=== PATIENT | female | born 1945 | race Caucasian/White ===

== ENCOUNTER 2023-10-23 09:15 | Outpatient (CLI) | payer MEDICARE, SELFPAY ==
--- NOTE | ~2023-10-23 | MMUS_ITS ---
MM post biopsy diagnostic LT, US_MAGSEEDLT_US EXAMINATION: MM post biopsy diagnostic LT, US_MAGSEEDLT_US INDICATION: Left breast cancer TECHNIQUE: The procedure for a ultrasound -guided Magseed localization was discussed with the patient . Risks discussed included bleeding and infection. The patient verbalized understanding and agreed to proceed. The time out was performed to verify the patient's name, date of , and site of procedure. The s kin overlying the left breast was prepared in usual fashion. Utilizing ultrasound guidance, the needl e was advanced into the left breast. Confirmation of Magseed position was achieved with ultrasound an d subsequent mediolateral and craniocaudal mammogram. The patient tolerated procedure without immedia te complication. BREAST PARENCHYMAL COMPOSITION: Dense: The breasts are heterogeneously dense, which may obscure small masses FINDINGS: Ultrasound and mammographic images demonstrate deployment of the Magseed device of the biop sy-proven left breast cancer. IMPRESSION: 1. Successful ultrasound-guided left breast Magseed localization. Magseed is located approximately 4 mm from the tissue marker from previous biopsy. Reviewed, dictated and finalized at location B. IMPRESSION: 1. Successful ultrasound-guided left breast Magseed localization. Magseed is lo cated approximately 4 mm from the tissue marker from previous biopsy.
== END 2023-10-23 09:16 | disposition home or self-care (01) ==
PROVIDERS: PCP Family Medicine; Visit Provider Surgery
DX: C50.312 Malignant neoplasm of lower-inner quadrant of left female breast (principal)
CPT/HCPCS: 19285; 77065; A4648

== ENCOUNTER 2023-10-30 08:47 | Outpatient (CLI) | payer MEDICARE, SELFPAY ==
--- NOTE | ~2023-10-30 | MM_ITS ---
EXAMINATION: MM_MAGSEEDLT_MG INDICATION: Left breast cancer TECHNIQUE: The procedure for a mammographically-guided Magseed localization was discussed with the alyssa perez. Risks discussed included bleeding and infection. The patient verbalized understanding and agre ed to proceed. The time out was performed to verify the patient's name, date of , and site of procedure. The s kin overlying the left breast was prepared in usual fashion. Utilizing mammographic guidance, the nee dle was advanced into the left breast. Confirmation of Magseed position was achieved with mammography . The patient tolerated procedure without immediate complication. BREAST PARENCHYMAL COMPOSITION: Dense: The breasts are heterogeneously dense, which may obscure small masses FINDINGS: Mammographic images demonstrate deployment of the Magseed device of the biopsy-proven left breast cancer. IMPRESSION: 1. Successful mammographic left breast Magseed localization. Post procedure mammogram for marker plac ement. Reviewed, dictated and finalized at location B. IMPRESSION: 1. Successful mammographic left breast Magseed localization. Post procedure alexandra mogram for marker placement.
== END 2023-10-30 08:48 | disposition home or self-care (01) ==
PROVIDERS: PCP Family Medicine; Visit Provider Surgery
DX: C50.912 Malignant neoplasm of unspecified site of left female breast (principal)
CPT/HCPCS: 19281; A4648

== ENCOUNTER 2023-11-18 00:35 | Day surgery (SDC) | payer MEDICARE, SELFPAY ==
[2023-11-12 10:45] VITALS: BMI 34.4
--- NOTE | 2023-11-12 10:47 | PC.NURSE ---
Report to the Outpatient Waiting Room, entrance under the green pavilion located off [facility], at time _0600_ on date _[id number]_. Planned Procedure Time: _0730_.? Time changes happen often and if your time is changed the preop area will call you the afternoon before. - You and your visitor will be asked to self-screen and do not enter if you have any COVID symptoms. Please call surgeon if you need to reschedule. - A mask is optional within the hospital at this time. Patients may have clear liquids (water, carbonated beverages, clear teas, apple juice) until 3 hours prior to surgery with a maximum of 20 ounces. - No food from midnight until time of surgery and no smoking Take only the following medications with a SIP of water on the morning of surgery: ___Amlodipine, Metoprolol, Symbicort and if needed Albuterol DO NOT STOP ANY OF YOUR OTHER PRESCRIPTION MEDICATIONS PRIOR TO SURGERY EXCEPT THE FOLLOWING Medications to discontinue per physician ____All vitamins and supplements Date to take last dose____Patient is stopping them today. Please no make-up, nail luxembourgish, hairspray, perfume, deodorant, or body powder the day of surgery.? No jewelry (including any body piercings) or valuables the day of surgery, leave them at home.? Please take a shower or bath the night before, or the morning of, surgery with an antibacterial soap.? Wear comfortable, loose fitting clothing.? - Jewelry must be removed prior to entering the operating room.? Rings and piercings that are not removed may be cut off. - The hospital will not accept responsibility for valuables.? - Please leave all valuables, including medications, at home the day of surgery. If you are going home after surgery, a licensed six horse hitch driver must drive you home.? - NO public transportation without another adult if you receive anesthesia. - We recommend that an adult stay with you for 24 hours following discharge. - We also recommend that you do not drive, make important decision, drink alcoholic beverages, or take any drugs that were not prescribed by your health care provider for at least 24 hours after your discharge time. Follow any additional instructions given to you from your surgeon. Telephone instructions given to __Blanca__and asked if any additional questions and then verbalized understanding. Patient advised to call surgeon office or pre surgery nurse liaison [phone] if any additional questions.
[2023-11-18] VITALS (7 sets, daily range): BP systolic 104–138; BP diastolic 58–67; PULSE 73–89; RESP 16–20; TEMP 36.4–36.5; O2SAT 92–100; BMI 34.0
--- NOTE | ~2023-11-18 | MM_ITS ---
EXAMINATION: MM_FAXITRON_MG INDICATION: Status post left breast lumpectomy TECHNIQUE: 2 specimen radiographs are submitted for review. COMPARISON: None available FINDINGS: The biopsy marker and magseed are contained within the specimen radiographs. IMPRESSION: 1. Biopsy marker and magseed within the specimen radiographs. Reviewed, dictated and finalized at location .
[2023-11-18] MEDS: LACTATED RINGERS 1,000 ML 30 ML IV CONT (06:30)
[2023-11-18] MEDS: ACETAMINOPHEN 500 MG TABLET 1000 MG PO (06:37)
--- NOTE | 2023-11-18 06:59 | WPDANESEPPF ---
Anes - Initial Pre Proc Eval Procedure: Operation Date: 11/18/23 07:30 Proposed Procedures p Left Breast Lumpectomy with Mag Seed Localization, Possible Adjacent Tissue Transfer - Kassidy Su MD Date/Time: 11/18/23 06:59 Surgeon: Kassidy Su MD Pre Op Diagnosis: CA left breast Patient Data Age: 78 Gender: F Height: 1.63 m Weight: 90 kg Last Vital Signs Temp 97.7 F 11/18/23 06:11 Pulse 89 11/18/23 06:11 Resp 18 11/18/23 06:11 BP 138/67 11/18/23 06:11 Pulse Ox 95 11/18/23 06:11 O2 Del Method Room Air 11/18/23 06:11 Allergies Allergy/AdvReac Type Severity Reaction Status Date / Time povidone-iodine Allergy Intermediate Itching Verified 11/18/23 06:43 [From Betadine] moxifloxacin [From Avelox] AdvReac Intermediate Itching Verified 11/18/23 06:43 shellfish AdvReac Unknown Itching Uncoded 11/18/23 06:43 Home Medications Medication Instructions Recorded Confirmed Type albuterol sulfate 90 mcg/actuation 1 inh inhalation Q4H 10/16/23 11/12/23 History aerosol inhaler amlodipine 5 mg tablet 5 mg PO DAILY 10/16/23 11/18/23 History budesonide-formoterol HFA 160 1 puff inhalation ONCE 10/16/23 11/18/23 History mcg-4.5 mcg/actuation aerosol inhaler (Symbicort) clobetasol 0.05 % topical spray 1 applic topical BID 10/16/23 11/12/23 History epinephrine 0.3 mg/0.3 mL 0.3 mg IM ONCE 10/16/23 11/12/23 History injection syringe fexofenadine 180 mg tablet 180 mg PO DAILY 10/16/23 11/12/23 History fluticasone propionate 50 1 spray intranasal DAILY 10/16/23 11/12/23 History mcg/actuation nasal spray,suspension (Allergy Relief (fluticasone)) metoprolol succinate 50 mg 50 mg PO DAILY 10/16/23 11/18/23 History tablet,extended release 24 hr triamterene 37.5 1 cap PO DAILY 10/16/23 11/12/23 History mg-hydrochlorothiazide 25 mg capsule arginine (L-arginine) 500 mg 1 mg PO DAILY 10/24/23 11/18/23 History capsule calcium carb,cit ER 600 mg-vit D3 1 tablet PO DAILY 10/24/23 11/18/23 History 12.5 mcg (500 unit) tablet,ext.rel (Citracal-D3 Slow Release) cholecalciferol (vitamin D3) 125 125 mcg PO DAILY 10/24/23 11/18/23 History mcg (5,000 unit) tablet (Vitamin D3) coQ10 (ubiquinol) 100 mg capsule 100 mg PO DAILY 10/24/23 11/18/23 History glucosamine 750 tm-gxdurwifiuw-fnu 1 tablet PO BID 10/24/23 11/18/23 History no1 644 mg-C 30 mg-dante 1 mg tablet (Osteo Bi-Flex Triple Strength) mecobalamin (vitamin B12) 1,000 1,000 mcg PO DAILY 10/24/23 11/18/23 History mcg chewable tablet multivitamin with minerals-folic 1 tablet PO DAILY 10/24/23 11/18/23 History acid 0.4 mg tablet pyridoxine (vitamin B6) 100 mg 100 mg PO DAILY 10/24/23 11/18/23 History tablet vitamin E mixed 400 unit capsule 1 unit PO DAILY 10/24/23 11/18/23 History Patient hx anesthesia problems: none Family hx anesthesia problems: none Results Review: All pre-operative results and documents have been reviewed as part of the pre-operative evaluation. [facility] Social History Social History Smoking packs per day: 1.5 Smoking cigarettes per day: 30.0 Years smoked: 25 Smoking pack-years: 37.50 Smoking status: Former smoker Tobacco type: cigarettes Smoking end date: 11/12/11 Alcohol intake: current Substance use: never Substance use type: does not use Do You Feel Safe in your Home?: Yes Lack of Transportation: No Lack of Food: Never True Current Housing: I Have Housing Concerned About Future Housing: No Difficulty Paying Gas/Electric Bills: No Difficulty Paying for Meds: No Currently Unemployed: No Education: High School Diploma/GED Difficulty w/ Childcare or Family Care: No Living arrangements: with family Spiritual care concerns: No Anes - Eval Final PreProcedure Day of Procedure 11/18/23 06:59 Patient weight: obese Heart: regular rat
--- NOTE | 2023-11-18 07:04 | WPDHPUPDATE1 ---
History and Physical Update Update Date/Time: 11/18/23 07:04 - Left breast lumpectomy with Mag seed localization and possible adjacent tissue transfer History and Physical has been reviewed, including an updated exam of the patient. There are NO changes in the patient's condition. Risks, benefits, and alternatives have been discussed and questions answered. Patient agrees to proceed with procedure.
[2023-11-18] MEDS: ceFAZolin 2 GM/D5W 50 ML 2 GM/50 ML BAG IVPB (07:21)
[2023-11-18] MEDS: BUPIVACAINE/EPINEPHRINE 0.5% 10 ML VIAL 20 ML INFILTRATE (07:45)
--- NOTE | 2023-11-18 08:55 | P.OP_ITS ---
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 Left breast lumpectomy with magseed localization 2. Adjacent tissue transfer 7cm x 3cm Surgeon Kassidy Su MD Anesthesia MAC Description of Procedure Patient was identified in the pre-operative area and brought to the OR suite. She underwent tumor localization previously by IR with magseed placement. She was laid supine in the operating table and sequential compression devices were applied. General anesthesia was induced without difficulties. The left chest was prepped and draped in a sterile fashion. The sentimag probe was used to identify the area where the magseed was placed and a medial inframammary fold incision was made. Dissection was carried down through the subcutaneous tissue into the breast tissue. The tumor was identified with palpation and using sentimag probe, and a rim of normal breast tissue was excised along with the tumor as our lumpectomy specimen. Once the specimen was completely excised, it was oriented using surgical paint according to patrol captain instructions. The specimen was placed in the faxitron and 2 radiographs were obtained and sent to Radiology for radiographic confirmation of Tumor, biopsy marker and magseed x2 within the specimen. Once the radiographic confirmation was received, the wound was irrigated with saline and hemostasis was assured. Given the medial location of t he lumpectomy/tumor, decision was made to use a small rim of upper abdominal fat to help approximate the lumpectomy cavity and decrease the risk for seroma formation. The upper abdominal fat and skin was mobilized from the upper rectus abdominis with electrocautery for a total of 3 cm down/caudal and 7 cm in length. This allowed the subcutaneous tissue to be mobilized to lumpectomy cavity. Several interrupted 2-0 vicryl intraparenchymal sutures were used to close the lumpectomy cavity. The deep dermal layer was approximated using interrupted 3-0 vicryl followed by 4-0 monocryl for the skin. Dermabond was applied followed by a surgical bra. Patient was awoken from anesthesia and taken to the recovery area in stable condition. All needles, instruments and sponge counts were correct as reported by the operating room staff. Patient tolerated the procedure well with no immediate complications. Estimated Blood Loss 5 Pathology Yes Complications No immediate complications Condition Stable Disposition PACU [facility] Billing Surgery - Charge Forward: Surgery Billing (CPT 92092, [id number] - 59)
[2023-11-18] MEDS: oxyCODONE HCL (*CRX) 5 MG TAB IR PO (10:18)
== END 2023-11-18 10:54 | disposition home or self-care (01) ==
PROVIDERS: PCP Family Medicine; Visit Provider Surgery
PROC: (CPT 19301; principal; 2023-11-18 07:30)
DX: C50.312 Malignant neoplasm of lower-inner quadrant of left female breast (principal); Z17.0 Estrogen receptor positive status [ER+]; Z79.51 Long term (current) use of inhaled steroids; Z87.891 Personal history of nicotine dependence; E66.9 Obesity, unspecified; Z68.34 Body mass index [BMI] 34.0-34.9, adult
CPT/HCPCS: 19301; 14001; 76098; 88307; A9270; J0690; J2405; J2704; J3010; J7120; Q9968

== ENCOUNTER 2023-12-22 09:45 | Outpatient (CLI) | payer MEDICARE, SELFPAY ==
--- NOTE | ~2023-12-22 | DEXA_ITS ---
Bone Density Report Name: TRISHA SOLITARIO Age: 78 Sex: Female Ethnicity: White Date of : 1945 Indication: postmenopausal; screening for osteoporosis; height loss; cancer; hysterectomy; Referring Provider: MARIMAR HAMM Study: Bone densitometry was performed. Exam Date: December 22, 2023 Accession number: [id number] Bone Density: Region BMD T-score Z-score Classification AP Spine(L1-L4) 1.103 0.5 3.1 Normal Femoral Neck (Left) 0.592 -2.3 -0.1 Osteopenia Total Hip (Left) 0.772 -1.4 0.5 Osteopenia Femoral Neck (Right) 0.580 -2.4 -0.2 Osteopenia Total Hip (Right) 0.810 -1.1 0.8 Osteopenia Total Hip Mean 0.791 -1.3 0.7 Osteopenia World Health Organization criteria for BMD impression classify patients as: Normal (T-score at or above -1.0), Osteopenia (T-score between -1.0 and -2.5), or Osteoporosis (T-score at or below -2.5). 10-year Fracture Risk(1): Major Osteoporotic Fracture 16% Hip Fracture 4.8% Reported Risk Factors: [place] (), Neck BMD=0.580, BMI=33.7 (1) FRAX(R) Version 3.08. Fracture probability calculated for an untreated patient. Fracture probability may be lower if the patient has received treatment. Clinical Information Provided by Patient: Has used the following medications: Calcium Has the following medical conditions: Cancer, Hysterectomy, COPD Patient maximum height was 65.0 Does not regularly consume dairy products Drinks caffeinated beverages Onset of menses at age 14 Number of children 0 Impression: The patient has low bone mass, based on the Right Femoral Neck T-score. The patient has an estimated ten-year risk of hip fracture of 4.8% and an estimated ten-year risk of major fracture of 16%, based on the WHO FRAX algorithm. Discussion: BONE DENSITY IS LOW AT ONE OR MORE SKELETAL SITES. THE PATIENT'S BMD AND CLINICAL RISK FACTORS CONTRIBUTE TO THIS PATIENT'S INCREASED RISK OF FRACTURE. This patient's lowest T-score is low at one or more skeletal sites. It meets the World Health Organization's (WHO) criteria for ?low bone mass? (T-score between -1.0 and -2.5). The patient's 10-year risk of hip fracture as calculated by FRAX exceeds the threshold where pharmacological therapy is recommended by the National Osteoporosis Foundation (NOF). However, all treatment decisions require clinical judgment and consideration of individual patient factors, including patient preferences, comorbidities, previous drug use, risk factors not captured in the FRAX model (e.g., frailty, falls, vitamin D deficiency, increased bone turnover, interval significant decline in bone density) and possible under or overestimation of fracture risk by FRAX. The patient should follow a healthful lifestyle (good nutrition with adequate calcium and vitamin D, and appropriate weight-bearing exercise). Follow-Up: Consider a repeat BMD and Vertebral Fracture Assessment (VFA) exam in 2 years or sooner if medically necessary, to reassess this patient's status. Reported by: YSABEL on 12/22/2023 10:22:00 AM. Reviewed, dictated and finalized at location AAugustine ROBERSON
== END 2023-12-22 09:46 | disposition home or self-care (01) ==
LOC: ANHIMG 09:47
PROVIDERS: PCP Family Medicine; Visit Provider Internal Medicine Hematology & Oncology
DX: M85.89 Other specified disorders of bone density and structure, multiple sites (principal)
CPT/HCPCS: 77080

== ENCOUNTER 2024-03-31 08:42 | Outpatient (CLI) | payer MEDICARE, SELFPAY ==
--- OUTSIDE RECORDS SUMMARY | 2024-03-31 08:57 | XMS_ITS | Clinical Summary ---
Author Organization [facility] Address [address] [place] [address] Care Team Providers Care [place] Name Role Phone Yaneli Summers MD Primary Care Provide r Alvaro Horton MD PhD Unavailable [phone] Charles Pa MD Unavailable Allergies Active Allergy Reactions Criticality Noted Date Comments Povidone-Iodine Itching Low 10/01/2022 Iodine Rash Medium topical Moxifloxacin Shellfish Containing Products Anaphylaxis High Shellfish Derived Anaphylaxis High Medications fexofenadine (SUKHI) 180 mg tablet Take 1 tablet (180 mg total) by mouth daily Active ipratropium-albu terol (DUO-NEB) 0.5-2.5 mg/3 mL nebulizer solutionIndicati ons:Chronic Obstructive Pulmonary Disease with Bronchospasms Take 3 mL by nebulization 4 (four) times a day as needed for wheezing or shortness of breath. 3 mL 3 04/07/19 19 Active Additional Information Patient not taking.Reported on 01/15/2024 clobetasoL (TEMOVATE) 0.05 % ointment 11/24/19 21 Active fluticasone propionate (FLONASE) 50 mcg/actuation nasal spray Administer 2 sprays into each nostril daily 48 g 11 02/19/20 23 Active triamterene-hydr oCHLOROthiazide 37.5-25 mg per tablet/capsule TAKE 1 CAPSULE BY MOUTH DAILY 100 capsule 1 07/04/19 24 Active EPINEPHrine 0.3 mg/0.3 mL auto-injection syringeIndicatio ns:Shellfish allergy INJECT INTRAMUSCULARLY 1 PEN NEEDED FOR ALLERGIC RESPONSE DIRECTED BY MD. SEEK MEDICAL HELP AFTER USE. 1 each 2 01/07/20 24 Active Additional Information Patient not taking.Reported on 01/15/2024 tamoxifen (NOLVADEX) 20 mg tablet Take 1 tablet (20 mg total) by mouth daily 01/08/20 24 Active amLODIPine (NORVASC) 5 mg tablet TAKE 1 TABLET BY MOUTH DAILY 100 tablet 1 01/20/20 24 Active fluticasone-umec lidin-vilanter (Trelegy Ellipta) 100-62.5-25 mcg inhalerIndicatio ns:Chronic Obstructive Pulmonary Disease Inhale 1 puff daily 180 each 1 01/29/20 24 Active albuterol HFA (PROVENTIL HFA,VENTOLIN HFA,PROAIR HFA) 90 mcg/actuation inhalerIndicatio ns:Chronic obstructive pulmonary disease, unspecified COPD type (HCC) INHALE 2 INHALATIONS BY MOUTH EVERY 4 TO 6 HOURS NEEDED FOR WHEEZING 25.5 g 02/09/20 24 Active metoprolol XL (TOPROL-XL) 100 mg 24 hr tablet Take 1 tablet (100 mg total) by mouth daily 90 tablet 3 03/09/19 25 2025 Active predniSONE (DELTASONE) 20 mg tablet Take 2 tablets (40 mg) by mouth daily 10 tablet 03/18/19 25 Active metoprolol XL (TOPROL-XL) 100 mg 24 hr tablet Take 1 tablet (100 mg total) by mouth daily 90 tablet 3 01/02/20 24 2024 Discontin ued(Reord er) azithromycin (ZITHROMAX) 250 mg tablet Take 2 by mouth today then 1 daily for 4 days 6 tablet 03/18/19 25 2024 Active Problems Problem Noted Date Diagnosed Date Mild mitral and aortic regurgitation 01/02/2024 Invasive ductal carcinoma of left breast 024 Assessment & Plan (11/05/2023 10:23 AM CDT): New concern Following with breast surgeon Going for left breast lumpectomy Tachycardia 08/07/2023 Assessment & Plan (08/22/2023 9:07 AM CDT): Chronic Stable Symptomatic 24hr holter monitor showed PACs, PVCs increase metoprolol 37.5mg daily and referred to cardiology F/u in 1 month for monitoring Assessment & Plan (08/08/2023 9:14 AM CDT): Chronic Stable Symptomatic Will get a 24hr holter monitor to evaluate for arrhythmia but since patient is having SOB, will start her on metoprolol 25mg daily F/u in 2 weeks for monitoring Malignant neoplasm of lower lobe, left bronchus or lung 05/01/2023 Cancer Staging:Clinical stage from 05/01/2023:Stage IA1(cT1a, cN0, cM0) - Signed by Alvaro Horton MD PhD on 05/01/2023 Assessment & Plan (06/26/2023 8:33 AM CDT): Stable Continue following with pulmonary for management Hepatic steatosis 03/04/2023 Assessment & Plan (03/04/2023 9:41 AM BICYCLE ASSEMBLER): We have discussed the findings on the MRI with the patient. We have discussed the hepatic steatosis is most likely driven from obesity. With dietary modifications and weight loss this can improve. We have discussed however if not it can progress to cirrhosis and hepatocellular carcinoma. Renal mass 03/04/2023 Assessment & Plan (06/26/2023 8:32 AM CDT): She is following with urology for management She is going to get another ultrasound Assessment & Plan (03/04/2023 9:42 AM BICYCLE ASSEMBLER): The splenic lesion seen on ultrasound was not visualized on the MRI. However there was 2 lesions identified within the kidney, 1 favored to be a cystic lesion while the other 1 favor to be a renal carcinoma. I will send her to urology for further management. She is in understanding. LUQ abdominal pain 12/30/2022 Assessment & Plan (01/30/2023 12:02 PM BICYCLE ASSEMBLER): We have discussed that splenic cyst can cause left upper quadrant pain. However we have also discussed that it will be very difficult to pinpoint with any diagnostic test whether or not the pain is specifically driven from this. I am 1st going to start by ordering some more detailed imaging other than the ultrasound to look at the splenic region. I have discussed that there are options with regarding the cyst such as radiologic and surgical procedures. Once the imaging has been completed we will bring her back for further discussions. Assessment & Plan (12/30/2022 9:55 AM BICYCLE ASSEMBLER): New concern Chronic Not at goal Possible MSK in nature Will get US to evaluate for hernia Chest xray given it is just below the rib Tylenol and heat for pain F/u in 1 month or sooner if no improvement Personal history of colonic polyps 10/25/2022 Family history of colon cancer 10/25/2022 Preop examination 06/25/2022 Assessment & Plan (11/05/2023 10:25 AM CDT): She understands that no procedure is risk-free but accepts those as discussed during OV and wishes to proceed. She was instructed to contact us if any new symptoms or problems arise between now and surgery date. According to the RCRI, the patient's number of risk factors stratifies patient to class I, which carries a 3.9% risk of major cardiovascular complications Cbc cmp and EKG ordered As long as above is unremarkable, she is medically optimized for surgery Assessment & Plan (06/25/2022 8:42 AM CDT): She understands that no procedure is risk-free but accepts those as discussed during OV and wishes to proceed. She was instructed to contact us if any new symptoms or problems arise between now and surgery date. According to the RCRI, the patient's number of risk factors stratifies patient to class I, which carries a 3.9% risk of major cardiovascular complications She is medically optimized cataract extraction Leukocytosis 06/25/2022 Assessment & Plan (06/26/2023 8:34 AM CDT): chronic saw hematology and was told it was fine Assessment & Plan (06/25/2022 8:50 AM CDT): chronic Going to see hematology Encounter for wellness examination 06/04/2021 Assessment & Plan (06/25/2023 12:49 PM CDT): Labs reviewed Colonoscopy up to date Pap smear: follows with cemetery counselor Mammo: has an appointment set up, Goes to [facility] Lung cancer screening: due in July, follows with pulmonary F/u in 1 year for annual Assessment & Plan (06/25/2022 8:33 AM CDT): Labs reviewed wnl Colonoscopy due in 2022, order placed for november Pap smear: follows with cemetery counselor Mammo: has an appointment set up, Goes to [facility] Lung cancer screening: due in July, follows with pulmonary F/u in 1 year for annual Assessment & Plan (06/04/2021 11:45 AM CDT): Labs reviewed wnl Colonoscopy due in 2022 Pap smear: follows with cemetery counselor Mammo: has an appointment set up F/u in 1 year for annual Sclerosing adenosis of breast, right 10/07/2019 Assessment & Plan (10/19/2019 8:53 AM CDT): I have discussed watching if the small seroma would increase in size that it may need to be drained. Currently it is quite small and not causing any discomfort. She will continue with her yearly mammogram checks. Diet as tolerates with regards to her gallbladder surgery. She is okay to go back with activities unrestricted. She will call us back with any further questions or concerns. Assessment & Plan (10/07/2019 11:44 AM CDT): Pathology has been reviewed with the patient. No malignancy within the sclerosing lesion or in the associated tissue. Patient can return to her yearly mammograms checks. Given the light erythema I will send her in a course of antibiotics to prevent cellulitis. We will see her back in another 7-10 days to recheck the area. Diastolic dysfunction 09/01/2019 Bilateral carotid artery stenosis 04/21/2019 Family hx colonic polyps 11/10/2017 Overview (11/10/2017): Added automatically from request for surgery [id number] Hx of colonic polyps 11/10/2017 Overview (11/10/2017): Added automatically from request for surgery [id number] Non-rheumatic tricuspid valve insufficiency 03/28 Chronic obstructive pulmonary disease 01/20/2017 Assessment & Plan (08/22/2023 9:07 AM CDT): Stable Continue following with pulmonary Continue with albuterol prn Assessment & Plan (06/25/2023 12:50 PM CDT): Stable Continue following with pulmonary Continue with duo-neb prn Assessment & Plan (06/23/2022 12:14 PM CDT): Stable Continue following with pulmonary Continue with duo-neb prn Assessment & Plan (06/04/2021 11:46 AM CDT): Stable Continue following with pulmonary Continue with duo-neb prn RIVER (obstructive sleep apnea) 10/09/2016 Assessment & Plan (06/25/2023 12:50 PM CDT): Stable Continue with cpap machine Assessment & Plan (06/23/2022 12:14 PM CDT): Stable Continue with cpap machine Assessment & Plan (06/04/2021 11:45 AM CDT): Stable Continue with cpap machine Panlobular emphysema 10/09/2016 Mixed hyperlipidemia 10/09/2016 Assessment & Plan (06/25/2023 12:49 PM CDT): Stable / clinically quiescent. Will continue to monitor. Lipid panel reviewed Assessment & Plan (06/23/2022 12:13 PM CDT): Stable / clinically quiescent. Will continue to monitor. Lipid panel wnl Assessment & Plan (06/04/2021 11:47 AM CDT): Stable / clinically quiescent. Will continue to monitor. Lipid panel wnl Essential hypertension 10/09/2016 Assessment & Plan (06/26/2023 8:22 AM CDT): Bp in the office today BP Readings from Last 1 Encounters: 06/26/23 130/80 Continue current regimen of amlodipine 5mg daily and triamterene hctz 37.5 and 25mg daily Recommend DASH diet, heart-healthy lifestyle, exercise. Discussed the risks of hypertension. F/u in 6 months Assessment & Plan (12/30/2022 9:26 AM BICYCLE ASSEMBLER): Bp in the office today BP Readings from Last 1 Encounters: 12/30/22 132/76 Continue current regimen of amlodipine 5mg daily and triamterene hctz 37.5 and 25mg daily Recommend DASH diet, heart-healthy lifestyle, exercise. Discussed the risks of hypertension. F/u in 6 months Assessment & Plan (06/25/2022 8:29 AM CDT): Bp in the office today BP Readings from Last 1 Encounters: 06/25/22 132/70 Continue current regimen of amlodipine 5mg daily and triamterene hctz 37.5 and 25mg daily Recommend DASH diet, heart-healthy lifestyle, exercise. Discussed the risks of hypertension. F/u in 6 months Assessment & Plan (12/25/2021 9:08 AM CDT): Bp in the office today BP Readings from Last 1 Encounters: 12/25/21 130/66 Continue current regimen of amlodipine 5mg daily and triamterene hctz 37.5 and 25mg Recommend DASH diet, heart-healthy lifestyle, exercise. Discussed the risks of hypertension. F/u in 6 months Assessment & Plan (06/04/2021 11:47 AM CDT): Bp in the office today BP Readings from Last 1 Encounters: 06/04/21 126/72 at goal Continue current regimen of amlodipine 5mg daily, triamterene/hctz 37.5/25mg Recommend DASH diet, heart-healthy lifestyle, exercise. Discussed the risks of hypertension. F/u in 6 months Thyroid nodule 10/09/2016 Assessment & Plan (06/25/2023 12:49 PM CDT): Stable for 5 years on US No further US needed Assessment & Plan (06/23/2022 12:13 PM CDT): Stable for 5 years on US No further US needed Assessment & Plan (06/04/2021 11:46 AM CDT): Stable for 5 years on US No further US needed Class 1 obesity due to exces s calories with serious comorbidity and body mass index (BMI) of 34.0 to 34.9 in adult 03/22/2015 Overview (05/31/2016): Obesity (BMI 30.0-34.9) Resolved Problems Problem Noted Date Diagnosed Date Resolved Date Calculus of gallbladder with out cholecystitis without obstruction 09/09/2019 10/07/2019 Assessment & Plan (09/09/2019 11:04 AM CDT): The patient has symptomatic cholelithiasis. We will set her up for cholecystectomy. Risks and benefits have been explained to include bleeding, infection and post cholecystectomy diarrhea. The patient however states that there is something suspicious found on a mammogram and she recently had a biopsy at an outside hospital. I discussed that if an underlying malignancy is found this should be addressed 1st in my mind. However we will cross that bridge and I will talk to those doctors at that time to coordinate timing. She is in understanding. Symptomatic cholelithiasis 09/09/2019 0 11/23/2019 Overview (09/09/2019): Added automatically from request for surgery [id number] Nonrheumatic aortic valve insufficiency 09/01/2019 11/23/2019 Bronchitis 12/01/2017 03/17/2018 Family hx of colon cancer 11/10/2017 Overview (11/10/2017): Added automatically from request for surgery [id number] Dysphagia 11/10/2017 11/09/2018 Overview (11/10/2017): Added automatically from request for surgery [id number] Nonrheumatic aortic valve insufficiency 04/22/2017 11/23/2019 Hypertension 01/20/2017 11/23/2019 Arthropathy of hand 01/20/2017 11/10/19 19 BMI 32.0-32.9,adult 10/09/2016 08/22/19 24 Mitral valve stenosis 10/09/20162017 Obstructive sleep apnea syndrome 03/22/2015 10/09/2016 Overview (05/31/2016): Obstructive sleep apnea syndrome Hypersomnia with sleep apnea 03/22/2015 10/09/2016 Overview (05/31/2016): 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 10/09/2016 Overview (05/31/2016): Sleep-related nonobstructive alveolar hypoventilation, idiopathic Non-toxic multinodular goiter 07/10/2013 10/09/2016 Overview (05/30/2016): NONTOX MULTINODUL GOITER Disorder of bone and cartilage 07/10/2013 04/22/2017 Overview (05/30/2016): BONE & CARTILAGE DIS NOS Benign hypertension 07/10/2013 10/10/19 17 Overview (05/31/2016): BENIGN HYPERTENSION Encounters Date Type Department Care Team Description 03/18/2024 Orders Only [facility] Pulmonary at [address] [place] [phone] Charles Pa MD 03/18/2024 Telephone [facility] Pulmonary at [address] [place] [phone] Regina Flores LPN sick call 01/29/2024 Telephone [facility] at [address] [place] [address] Sandie Pond MA Test Results 01/29/2024 Telephone [facility] at [address] [place] [address] Sandie Pond MA Med Management 01/26/2024 8:14 AM BICYCLE ASSEMBLER - 01/26/2024 11:59 PM BICYCLE ASSEMBLER Hospital Encounter [facility] [address] [place] [id number] Chronic obstructive pulmonary disease, unspecified COPD type (HCC) Discharge Disposition: Discharge to home or self care 01/15/2024 2:10 PM BICYCLE ASSEMBLER Lab [address] Chronic diastolic heart failure (HCC) 01/15/2024 1:30 PM BICYCLE ASSEMBLER Office Visit [facility] Pulmonary at [address] [phone] Charles Pa MD Chronic obstructive pulmonary disease, unspecified COPD type (HCC) (Primary Dx); Pulmonary nodule; Chronic diastolic heart failure (HCC); Cigarette nicotine dependence in remission 01/08/2024 8:32 AM BICYCLE ASSEMBLER - 01/08/2024 11:59 PM BICYCLE ASSEMBLER Hospital Encounter [address] [address] Pulmonary nodule Discharge Disposition: Discharge to home or self care 01/07/[address] [address] Ileana Thomas 01/02/2024 9:15 AM BICYCLE ASSEMBLER Office Visit [facility] at [address] [place] [address] Fe Buchanan NP PAC (premature atrial contraction) (Primary Dx); Essential hypertension; Diastolic dysfunction; Mild mitral and aortic regurgitation 12/30/2023 7:24 AM BICYCLE ASSEMBLER - 12/30/2023 11:59 PM BICYCLE ASSEMBLER Hospital Encounter [address] [address] Discharge Disposition: Discharge to home or self care 12/30/2023 7:23 AM BICYCLE ASSEMBLER - 12/30/2023 11:59 PM BICYCLE ASSEMBLER Hospital Encounter [facility] [address] [place] [address] Coronary artery disease, unspecified vessel or lesion type, unspecified whether angina present, unspecified whether [place] or transplanted heart Discharge Disposition: Discharge to home or self care 12/30/2023 7:23 AM BICYCLE ASSEMBLER - 12/30/2023 11:59 PM BICYCLE ASSEMBLER Hospital Encounter [facility] [address] [place] [address] Discharge Disposition: Discharge to home or self care 12/30/2023 7:22 AM BICYCLE ASSEMBLER - 12/30/2023 11:59 PM BICYCLE ASSEMBLER Hospital Encounter [address] [address] Coronary artery disease, unspecified vessel or lesion type, unspecified whether angina present, unspecified whether [place] or transplanted heart Discharge Disposition: Discharge to home or self care 12/30/2023 7:20 AM BICYCLE ASSEMBLER - 12/30/2023 11:59 PM BICYCLE ASSEMBLER Hospital Encounter [facility] [address] [place] [id number] Non-rheumatic tricuspid valve insufficiency Discharge Disposition: Discharge to home or self care from Last 3 Months Immunizations Name Administration Dates Next Due COVID-19 mRNA (FaceTags) 0.3 m L (30 mcg) vaccine (12 years and up) 12/21/2023 Influenza, Quadrivalent, Hig h Dose, Preservative Free, Intrr 12/08/2022,12/02/2021,12/04/2020,11/22 Influenza, Split 01/02/2011 Influenza, Trivalent, Adjuva nted, Intramuscular 11/21/2017 Influenza, Trivalent, High D ose, Split, Preservative Free, Intramuscular 12/14/2023,11/09/2018,11/22/2017,12/02,12/12/2015,11/30/2014 Influenza, Trivalent, IM (MDV) 12/09/2012,2011,11/25/2007 Influenza, Unspecified 11/05/2023(Deferr ed: Patient Refused),12/12/2022,12/16/2021 [employer] SARS-CoV-2 Monovalent Vaccination (12+ Yrs) PURPLE 05/18/2020,04/20/2020 [employer] Sars-Cov-2 Bivalent V accination (12+ YRS) 12/16/2021 Pneumococcal Conjugate PCV 13 02/28/2015 Pneumococcal Polysaccharide PPV23 12/04/2020, Td, adsorbed 09/03/2019 Tdap 05/01/2007 ZOSTER LIVE 05/10/2015 Surgical History Surgery Date Site/Laterality Comments APPENDECTOMY Appendectomy TOTAL ABDOMINAL HYSTERECTOMY W/ BILATERAL SALPINGOOPHORECTOMY Hysterectomy, total abdominal, BSO COLONOSCOPY 12/06/2012 CHOLECYSTECTOMY 09/30/2019 BREAST SURGERY 09/30/2019 Right Lumpectomy COLONOSCOPY 11/24/2017 - 12/24/2017 COLONOSCOPY 12/26/2022 BREAST SURGERY 10/29/2023 Left Medical History Medical History Date Comments Hypertension Hypertension Hyperlipidemia Hyperlipidemia Hx Other Medical MULTINOUDULAR G OITER Osteoporosis Osteoporosis Chronic obstructive pulmonary disease (HCC) COPD Eczema Eczema Colon polyp Dysphagia GERD (gastroesophageal reflux disease) Sleep apnea Thyroid nodule Obesity Leukocytosis Kidney cysts History of left breast cancer Family History Medical History Relation Name Comments Breast cancer Cousin x2 Coronary artery disease Father Britt nary artery disease; Diabetes Father Diabetes mellit us; /Diabetes mellitus; Heart disease Father Heart disease; Coronary artery disease Mother Britt nary artery disease; Diabetes Mother Diabetes mellit us; /Diabetes mellitus; Heart disease Mother Heart disease; Colon cancer Sister 2 Other Sister 2 Alive and well; Endometrial cancer Neg Hx Ovarian cancer Neg Hx Thyroid cancer Neg Hx Relation Name Status Comments Cousin x2 Father (Age 83) Mother (Age 62) Sister 1 Alive Sister 2 Social History Tobacco Use Types Packs/Day Years Used Date Smoking Tobacco: Former Cigarettes 2 46 1 966 - 2012 Smokeless Tobacco: Never Tobacco Cessation:Counseling Given: Not Answered Comments:Smoking History Packs/day: 2 Packs 04/15/2023 currently a nonsmoker. TC Alcohol Use Standard Drinks/Week Comments Yes 0 (1 standard drink = 0.6 oz pur e alcohol) AUDIT-C Answer Date Recorded Q1: How often do you have a drink containing alcohol? Never 08/08/2023 Q2: How many drinks containi ng alcohol do you have on a typical day when you are drinking? Patient does not drink Q3: How often do you have si x or more drinks on one occasion? Never 08/08/2023 PHQ-2 Answer Date Recorded PHQ-2 Total Score (If total score is 3 or more points, staff should administer the PHQ-9) 0 11/05/2023 Personal Safety Answer Date Recorded Have you ever been in or are you currently in a harmful physical or emotional relationship or is someone making you feel afraid or unsafe? Denies 12/26/2022 Comments No Sex and Gender Information Value Date Recorded Sex Assigned at Not on file Legal Sex Female 6:17 PM BICYCLE ASSEMBLER Gender Identity Not on file Sexual Orientation Not on file Obstetrics History Para Term AB IAB SAB Ectopic Multiple Livin g Live Births 0 0 0 0 0 0 0 0 0 0 0 Last Filed Vital Signs Vital Sign Reading Time Taken Comments Blood Pressure 132/80 01/15/2024 1:23 PM BICYCLE ASSEMBLER Pulse 111 01/15/2024 1:23 PM BICYCLE ASSEMBLER Temperature 36.4 ??C (97.5 ??F) 01/15/2024 1:23 PM CS T Respiratory Rate 18 01/02/2024 9:19 AM BICYCLE ASSEMBLER Oxygen Saturation 95% 01/15/2024 1:23 PM BICYCLE ASSEMBLER Inhaled Oxygen Concentration - - Weight 90.9 kg (200 lb 6.4 oz) 01/15/2024 1:23 P M BICYCLE ASSEMBLER Height 162.6 cm (5' 4 ) 01/15/2024 1:23 PM BICYCLE ASSEMBLER Body Mass Index 34.4 01/15/2024 1:23 PM BICYCLE ASSEMBLER Plan of Treatment Health Maintenance Due Date Last Done Comments Hepatitis B Screening 1963 Zoster Vaccine (1 of 2) 07/05/2015 05/10/2015 Osteoporosis Screening-Bone Density Scan 06/08/2022 06/08/2020, 05/01/2016, 05/01/2016 Covid-19 Vaccine (2023-03 5 season) 2024 12/21/2023, 01/05/2023, 12/16/2021, Additional history exists Well Visit 65+ 06/25/2024 06/26/2023, 0503/2022, 06/04/2021, Additional history exists Depression Screening 11/04/2024 11/05/2023, 08/22/2023, 08/08/2023, Additional history exists Fall Risk Assessment 11/04/2024 11/05/2023, 08/22/2023, 08/08/2023, Additional history exists DTaP/Tdap/Td Vaccine (3 - Td or Tdap) 09/02/2029 09/03/2019, 05/01/2007 Hepatitis C Screening Completed 03/27/2016 Breast Cancer Screening-Mammogram Discontinued 01/11/2019, 01/07/2018, 01/06/2017, Additional history exists Pneumococcal vaccine 65+ Completed 021, 02/28/2015, 12/18/2009 Colon Cancer Screening-CT Colonography Discontinued 12/26/2022, 12/18/2017, 05/01/2016, Additional history exists Colon Cancer Screening-Colonoscopy Discontinued 12/26/2022, 12/18/2017, 05/01/2016, Additional history exists Colon Cancer Screening-DNA Stool Discontinued 12/26/2022, 12/18/2017, 05/01/2016, Additional history exists Colon Cancer Screening-FIT Discontinued 12/26, 12/18/2017, 05/01/2016, Additional history exists Colon Cancer Screening-FOBT Discontinued 03/2022, 12/18/2017, 05/01/2016, Additional history exists Colon Cancer Screening-Sigmoidoscopy Discontinued 12/26/2022, 12/18/2017, 05/01/2016, Additional history exists Colorectal Cancer Screening Discontinued Influenza Vaccine Completed 12/14/2023, , 12/08/2022, Additional history exists Procedures Procedure Name Priority Date/Time Associated Diagnosis Comments PULMONARY FUNCTION TEST (PFT) Routine 01/26/2024 9:57 AM BICYCLE ASSEMBLER Chronic obstructive pulmonary disease, unspecified COPD type (HCC) PRO B-TYPE NATRIURETIC PEPTIDE Routine 01/15/2024 2:10 PM BICYCLE ASSEMBLER Chronic diastolic heart failure (HCC) CT CHEST WO CONTRAST F/U LUNG SCREEN PROTOCOL Schedule Routine, Read Routine (OP Routine) 01/08/2024 9:08 AM BICYCLE ASSEMBLER Pulmonary nodule STRESS TEST FOR DUAL READ Schedule Routine, Read Routine (OP Routine) 12/30/2023 10:56 AM BICYCLE ASSEMBLER Coronary artery disease, unspecified vessel or lesion type, unspecified whether angina present, unspecified whether [place] or transplanted heart NM MPI SPECT (REST AND/OR STRESS) MULTIPLE STUDIES Schedule Routine, Read Routine (OP Routine) 12/30/2023 10:56 AM BICYCLE ASSEMBLER Coronary artery disease, unspecified vessel or lesion type, unspecified whether angina present, unspecified whether [place] or transplanted heart TRANSTHORACIC ECHO (TTE) COMPLETE W DOPPLER/CF WO CONTRAST Routine 12/30/2023 8:04 AM BICYCLE ASSEMBLER Non-rheumatic tricuspid valve insufficiency COLONOSCOPY 12/26/2022 7:34 AM CDT DEXA AXIAL SKELETON BONE DENSITY 1 OR MORE SITES Schedule Routine, Read Routine (OP Routine) 06/08/2020 9:51 AM CDT Other specified disorders of bone density and structure, multiple sites SCREENING MAMMOGRAM BILATERAL W JUAN C Schedule Routine, Read Routine (OP Routine) 01/11/2019 10:22 AM BICYCLE ASSEMBLER Encounter for screening mammogram for malignant neoplasm of breast HEPATITIS C SCREENING Routine 03/27/2016 from Last 3 Months or Most Recently Relevant to Health Maintenance Results * Pulmonary Function Test - (01/26/2024 9:57 AM BICYCLE ASSEMBLER) Anatomical Region Laterality Modality PFT 01/26/2024 8:37 AM BICYCLE ASSEMBLER Impressions 01/26/2024 2:32 PM BICYCLE ASSEMBLER 1. ?? Spirometry consistent with moderate obstructive defect with reduced FVC likely in the setting of air trapping. 2. ?? There is no bronchodilator response. 3. ?? Lung volumes consistent with air trapping. 4. ?? Diffusion capacity is normal. Electronically signed by Anthony Ramos, Pulmonary & Critical Care Narrative 01/26/2024 2:32 PM BICYCLE ASSEMBLER PFT performed at:->[facility] PULMONARY FUNCTION TESTS Blanca Solitario 78 y.o. 01/26/2024 INTERPRETATION Please see technologist's comments mentioned in attached results report. SPIROMETRY: ??Pre bronchodilator FEV1 is ?? 37 % predicted, FVC is ??48 % predicted, FEV1/FVC is ??58 Bronchodilator response: ??no bronchodilator response Inspection of the patient's flow-volume loops shows: ?? consistent with expiratory obstruction LUNG VOLUMES: Lung volumes by body plethysmography: ??TLC is ??90 % predicted, RV is ??138 % predicted DLCO: ??Unadjusted for hemoglobin and carboxyhemoglobin DLCO is ??76 % predicted us Charles Pa MD PFT ORDERABLES Final Result * Pro B-type natriuretic peptide (01/15/2024 2:10 PM BICYCLE ASSEMBLER) NT-proBNP 177 <=450 pg/mL Comment: Interpretive Comments: A. Dyspnea in Acute Care Setting All Ages: ?< 300 pg/ml, acute heart failure unlikely. < 50 yrs: ?300 - 450 pg/ml, further investigation warranted. ? > 450 pg/ml, acute heart failure likely. 50 - 74 yrs: ? 300 - 900 pg/ml, further investigation warranted. ? > 900 pg/ml, acute heart failure likely . > or = 75 yrs: ? 450 - 1800 pg/ml, further investigation warranted. ? > 1800 pg/ml, acute heart failure likely. B. Non-acute Setting < 75 yrs ? < 125 pg/ml, rules out heart failure. ? > or = 125 pg/ml, further investigation warranted. > or = 75 yrs ?< 450 pg/ml, rules out heart failure. ? > or = 450 pg/ml, further investigation warranted. - Knowledge of each individual patient's NT-proBNP range may be more useful than using similar cut-points for every patient. Please note that marked elevations in NT-proBNP levels may be observed in state other than Left Ventricular Congestive Failure, including: acute coronary syndromes, right heart strain/failure (including pulmonary embolism and cor pulmonale), critical illness, renal failure, as well as advanced age. - References: 1. Keke NOLAN et.al. Eur Heart J. 2006:27:330-337. 2. Dimple MANCILLA, Magdalena GUZMAN. J. AM Bill Cardiol: Cardiovasc Imag. 2009;2: 216- 225. Interpretive Data Last Revised Date: 2017. Blood 01/15/2024 2:10 PM BICYCLE ASSEMBLER 01/15/2024 3:49 PM BICYCLE ASSEMBLER us Charles Pa MD LAB BLOOD ORDERABLES Final Resul t [facility] ([place]) 1 [facility] Department of Laboratories [place], [place] [id number] * CT Chest WO Contrast F/U Lung Screen Protocol (01/08/2024 9:08 AM BICYCLE ASSEMBLER) Anatomical Region Laterality Modality Chest N/A Computed Tomogra phy 01/13/2024 9:19 AM BICYCLE ASSEMBLER Narrative 01/13/2024 9:36 AM BICYCLE ASSEMBLER EXAM DESCRIPTION: ?? CT CHEST WO CONTRAST F/U LUNG SCREEN PROTOCOL REASON FOR STUDY: Screening CT of the chest in a ?? former ??smoker with a ??92 ?? pack year smoking history. Additional history: Category 3 examination on 07/09/2023.. TECHNIQUE: Low dose CT scan of the chest was performed without intravenous contrast using helical scanning technique. The exam extends from the lung apices through the lung bases. Automatic exposure control was used as a dose optimization technique. NOTE: This study was performed for the specific purposes of lung cancer screening and is not an alternative to diagnostic chest CT. RADIATION DOSE: CT dose index volume (CTDIvol) = ?? 2.05 ??mGy COMPARISON: ?? 07/09/2023 FINDINGS: SMOKING RELATED LUNG DISEASE: ?? Mild emphysema LUNG NODULES: ?? grossly stable 5 mm right apical nodule (32). ??Stable 4 mm nodule along the right major fissure (101). ??Stable 4 mm pleural right lower lobe nodule (250). ??Right lower lobe granuloma. ??Stable 5 mm posterior pleural left upper lobe nodule (52). Stable 4 mm left upper lobe nodule (104). Stable 5 mm left lower lobe nodule (186). Grossly stable 10 x 7 mm left lower lobe nodule (205). ?? OTHER: ?? No consolidation, pulmonary edema, pleural effusion or pneumothorax. ?? No mediastinal or hilar lymphadenopathy. ??The heart is normal in size with significant coronary calcification. ??A trace pericardial effusion is seen. ?? 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 ??Prominent axillary lymph nodes are noted. ??No chest wall mass. ??Images of the upper abdomen demonstrate no gross abnormality. ??Bone windows demonstrate no suspicious lytic or sclerotic lesion. ??No acute fracture seen. IMPRESSION: ?? 1. ?? Grossly stable pulmonary nodules compared to 07/09/2023 Lung-RADS category ??2: Benign appearance or behavior. Recommendation: ??Low dose Screening CT of chest in 12 months. THIS IS AN ELECTRONICALLY VERIFIED FINAL REPORT 01/13/2024 9:36 AM - Electronically signed by ??Xiang Carrizales M.D. AG: JESÚS D: ??01/13/2024 9:36 AM T: ??01/13/2024 9:36 AM Report ID: [id number] Reading Location: ??[id number] Procedure Note Xiang Carrizales MD - 01/13/2024 EXAM DESCRIPTION: CT CHEST WO CONTRAST F/U LUNG SCREEN PROTOCOL REASON FOR STUDY: Screening CT of the chest in a former smoker with a92 pack year smoking history. Additional history: Category 3 examination on 07/09/2023.. TECHNIQUE: Low dose CT scan of the chest was performed without intravenous contrast using helical scanning technique. The exam extends from the lung apices through the lung bases. Automatic exposure control was used as adose optimization technique. NOTE: This study was performed for the specific purposes of lung cancer screening and is not an alternative to diagnostic chest CT. RADIATION DOSE: CT dose index volume (CTDIvol) = 2.05 mGy COMPARISON: 07/09/2023 FINDINGS: SMOKING RELATED LUNG DISEASE: Mild emphysema LUNG NODULES: grossly stable 5 mm right apical nodule (32). Stable 4 mm nodule along the right major fissure (101). Stable 4 mm pleural rightlower lobe nodule (250). Right lower lobe granuloma. Stable 5 mm posteriorpleural left upper lobe nodule (52). Stable 4 mm left upper lobe nodule (104).Stable 5 mm left lower lobe nodule (186). Grossly stable 10 x 7 mm left lowerlobe nodule (205). OTHER: No consolidation, pulmonary edema, pleural effusion orpneumothorax. No mediastinal or hilar lymphadenopathy. The heart is normal in sizewith significant coronary calcification. A trace pericardial effusion is seen. 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 No chest wall mass. Images of the upper abdomen demonstrate no gross abnormality. Bone windows demonstrate no suspicious lytic or sclerotic lesion. No acute fracture seen. IMPRESSION: 1. Grossly stable pulmonary nodules compared to 07/09/2023 Lung-RADS category 2: Benign appearance or behavior. Recommendation: Low dose Screening CT of chest in 12 months. THIS IS AN ELECTRONICALLY VERIFIED FINAL REPORT 01/13/2024 9:36 AM - Electronically signed by Xiang Carrizales M.D. AG: JESÚS Report ID: [id number] Reading Location: [id number] Charles Pa MD IM CT PROCEDURES Final Result * NM MPI SPECT (Rest and/or Stress) Multiple Studies (12/30/2023 10:56 AM BICYCLE ASSEMBLER) Anatomical Region Laterality Modality Body N/A Nuclear Medicine 12/30/2023 8:04 AM BICYCLE ASSEMBLER Narrative 12/31/2023 1:40 PM BICYCLE ASSEMBLER [address] [address] [employer] Report Patient Name: BLANCA SOLITARIO A : 1945 Study Date: 12/30/2023 8:04:19 AM Gender: F Tech: ??Ref Provider: FE BUCHANAN Height(Cm): ??BSA: Weight(Kg): ? Order Provider: FE BUCHANAN - PROCEDURES: Pharmacologic SPECT Report.: Myocardial perfusion imaging with Sestamibi SPECT at rest and post regadenoson (Lexiscan) infusion. INDICATIONS: I25.10 Atherosclerotic heart disease of [place] coronary artery without angina pectoris. FINDINGS: Procedure Data: Sestamibi injected at rest was 9.3 millicuries. Sestamibi injected at peak exercise was 23.8 millicuries. Predicted Maximal HR 143 bpm. Perfusion: Normal perfusion imaging. LV Function: Left ventricular ejection fraction is 72 %. CONCLUSIONS: 1. Myocardial Perfusion: Normal rest and stress images. 2. Left ventricle: Normal size and systolic function (visually confirmed EF >50%). Electronically Signed By: Janny Duran MD 2023-12-31 13:40:31 BICYCLE ASSEMBLER Procedure Note Janny Duran MD - 12/31/2023 [place] [address] [facility] Report Patient Name: BLANCA SOLITARIO A : 1945 Study Date: 12/30/2023 8:04:19 AM Gender: F Tech: Ref Provider: FE BUCHANAN Height(Cm): BSA: Weight(Kg): Order Provider: FE BUCHANAN - PROCEDURES: Pharmacologic SPECT Report.: Myocardial perfusion imaging with Sestamibi SPECT at rest and postregadenoson (Lexiscan) infusion. 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 FINDINGS: Procedure Data: Sestamibi injected at rest was 9.3 millicuries. Sestamibi injected at peakexercise was 23.8 millicuries. Predicted Maximal HR 143 bpm. Perfusion: Normal perfusion imaging. LV Function: Left ventricular ejection fraction is 72 %. CONCLUSIONS: 1. Myocardial Perfusion: Normal rest and stress images. 2. Left ventricle: Normal size and systolic function (visually confirmedEF >50%). Electronically Signed By: Janny Duran MD 2023-12-31 13:40:31 BICYCLE ASSEMBLER Fe Oakley Domonique AEROSPACE ENGINEER IMG NM PROCEDURES Final Result * Stress Test for Myocardial Perfusion (12/30/2023 10:56 AM BICYCLE ASSEMBLER) Anatomical Region Laterality Modality Nuclear Medicine 12/30/2023 10:0 0 AM BICYCLE ASSEMBLER Narrative 12/30/2023 2:28 PM BICYCLE ASSEMBLER [address] [address] Lexiscan Report Patient Name: BLANCA SOLITARIO A : 1945 Study Date: 12/30/2023 10:00:00 AM Gender: F Tech: louis Morrissey Provider: FE BUCHANAN Height(Cm): 163 BSA: 3.01 Weight(Kg): 200 ?Heart Rate: 122 Order Provider: FE BUCHANAN PROCEDURES: Pharmacologic SPECT Report.: Myocardial perfusion imaging with Sestamibi SPECT at rest and post regadenoson (Lexiscan) infusion. INDICATIONS: I25.10 Atherosclerotic heart disease of [place] coronary artery without angina pectoris. FINDINGS: Procedure Data: Resting HR 89 bpm. Peak HR: 111 bpm. Predicted Maximal HR 143 bpm. Target HR: 122 bpm. Percent Max Predicted HR Achieved: 77.62 %. Baseline BP: 145/82 mmHg. Peak BP: 142/73 mmHg. Exercise Time: 00:10. Medications: Medications None, aspirin, bumex, capoten, cardura, carvedilol (Coreg), clonidine, coumadin, cozaar, digoxin, diltiazem, diovan, hydrochlorothiazide, hytrin, isordil, lasix, lipitor, metoprolol, multaq, niacin, norvasc, potassium, pravachol, procardia, propanolol, rythmol, simvastatin, toprol, trandate, vasotec, verapamil, zaroxolyn, zocor and free text. Performed By: Supervising Physician: The Supervising Physician is flakito solis. Reason for Termination: Lexiscan protocol complete. Resting ECG: Normal sinus rhythm at 88 beats per minute, normal axis. Post Pharm ECG: No diagnostic ST changes. Arrhythmia: No arrhythmias seen. Cardiac Symptoms With Stress: Symptoms with stress were None. Exam Interpreted: Read by . CONCLUSIONS: 1. Negative Lexiscan pharmacologic stress test for chest pain or EKG changes. 2. Nuclear images are pending and they will be reported separately. Electronically Signed By: Dr Lukas Nuñez 2023-12-30 14:28:26 BICYCLE ASSEMBLER Procedure Note Lukas Nuñez MD - 12/30/[address] [place] [address] Lexiscan Report Patient Name: BLANCA SOLITARIO A : 1945 Study Date: 12/30/2023 10:00:00 AM Gender: F Tech: louis caballero Ref Provider: FE BUCHANAN Height(Cm): 163 BSA: 3.01 Weight(Kg): 200 Heart Rate: 122 Order Provider: FE BUCHANAN PROCEDURES: Pharmacologic SPECT Report.: Myocardial perfusion imaging with Sestamibi SPECT at rest and postregadenoson (Lexiscan) infusion. 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 FINDINGS: Procedure Data: Resting HR 89 bpm. Peak HR: 111 bpm. Predicted Maximal HR 143 bpm. TargetHR: 122 bpm. Percent Max Predicted HR Achieved: 77.62 %. Baseline BP: 145/82 mmHg. PeakBP: 142/73 mmHg. Exercise Time: 00:10. Medications: Medications None, aspirin, bumex, capoten, cardura, carvedilol (Coreg),clonidine, coumadin, cozaar, digoxin, diltiazem, diovan, hydrochlorothiazide, hytrin,isordil, lasix, lipitor, metoprolol, multaq, niacin, norvasc, potassium, pravachol,procardia, propanolol, rythmol, simvastatin, toprol, trandate, vasotec, verapamil,zaroxolyn, zocor and free text. Performed By: Supervising Physician: The Supervising Physician is flakito solis. Reason for Termination: Lexiscan protocol complete. Resting ECG: Normal sinus rhythm at 88 beats per minute, normal axis. Post Pharm ECG: No diagnostic ST changes. Arrhythmia: No arrhythmias seen. Cardiac Symptoms With Stress: Symptoms with stress were None. Exam Interpreted: Read by . CONCLUSIONS: 1. Negative Lexiscan pharmacologic stress test for chest pain or EKGchanges. 2. Nuclear images are pending and they will be reported separately. Electronically Signed By: Dr Lukas Nuñez 2023-12-30 14:28:26 BICYCLE ASSEMBLER us Fe Buchanan NP CV STRESS PROCEDURES Fi nal Result * TRANSTHORACIC ECHO (TTE) COMPLETE W DOPPLER/CF WO CONTRAST (12/30/2023 8:04 AM BICYCLE ASSEMBLER) Anatomical Region Laterality Modality Ultrasound 12/30/2023 7:26 AM BICYCLE ASSEMBLER Narrative 12/30/2023 9:25 AM BICYCLE ASSEMBLER [address] [place] [address] Echocardiogram Report Patient Name: BLANCA SOLITARIO A : 1945 Study Date: 12/30/2023 7:26:23 AM Gender: F Tech: AEROSPACE ENGINEER Location: Echo Lab 2 Ref Provider: FE BUCHANAN ?Height(Cm): 163 BSA: 2.03 Weight(Kg): 90.7 Quality: Adequate Order Provider: FE BUCHANAN PROCEDURES: Echocardiographic Report: Transthoracic echocardiogram with complete 2D, M-Mode, and color Doppler examination. 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 Measurements: 2D/M Mode ?Doppler Measurement ?Value ?Normal Range ? Measurement ? Value ?Normal Range EF Teich MM ?80.0 ? [ 54.0 - 74.0 ] percent ?HÉCTOR Vmax ?2.61 ? cm2 LVIDd MM ? 2.80 ? [ 3.80 - 5.20 ] cm ? AV Mean PG ?10 ? mmHg LVIDs MM ? 1.50 ? [ 2.20 - 3.50 ] cm ? AV Peak Erich ? 2.13 ? [ 1.00 - 1.70 ] m/s LVPWd MM ? 1.20 ? [ 0.60 - 0.90 ] cm ? AV VTI ?41.99 ?cm IVSd MM ?1.30 ? [ 0.60 - 0.90 ] cm ? LVOT Diam ? 2.28 ? cm LA Dimension MM ?3.92 ? [ 2.70 - 3.80 ] cm ? LVOT Peak Erich ? 1.36 ? [ 0.70 - 1.10 ] m/s AoR Diam MM ?3.21 ? [ 2.70 - 3.70 ] cm ? LVOT VTI ?24.59 ?cm ACS MM ? 1.90 ? cm ? MV E Peak Erich ? 0.86 ? [ 0.60 - 1.30 ] m/s MV A Peak Erich ?1.39 ? [ 1.00 - 1.20 ] m/s MV Mean PG ? 5 ?mmHg MV PHT ? 49 ? [ 20 - 100 ] msec MVA ?4.50 MV Decel Time ?160 ?[ 104 - 258 ] msec PV Peak Erich ?1.17 ? [ 0.40 - 0.80 ] m/s TR Peak Erich ?4.01 ? [ 1.00 - 2.80 ] m/s TR Peak PG ? 64 ? mmHg RVSP ? 79.00 ?[ 10.00 - 36.00 ] mmHg E` ? 0.05 ? m/s E/E` ? 17.82 ?[ <= 10.00 ] PA Pressure ?79.00 ?[ 10.00 - 36.00 ] mmHg Measurement ?Value ?Normal Range ? Measurement ? Value ?Normal Range 2D/M Mode ?Doppler - FINDINGS: Atrial Septum: Normal atrial septum. Left Ventricle: Normal left ventricular systolic function with no focal wall motion abnormalities. Normal left ventricular size. Mild concentric left ventricular hypertrophy. Impaired diastolic relaxation Grade I. Ejection fraction is measured at 76 %. Left Atrium: There is moderate enlargement of left atrium. Right Ventricle: Normal right ventricular size. Normal right ventricular systolic function. Right Atrium: The right atrium is normal in size. Aortic Valve: Aortic cusps appear mildly sclerotic. Mild to moderate aortic valve regurgitation. Mitral Valve: Mild mitral annular calcification. Mild to moderate mitral valve regurgitation. Pulmonic Valve: Normal structure of the pulmonic valve. Tricuspid Valve: Moderate pulmonary hypertension based on right ventricular systolic pressure. Estimated peak RVSP is 50 mmHg. Pericardium: Normal pericardium with no significant pericardial effusion. Aorta: Normal aortic root. Sinus of Valsalva is normal. Aortic arch is normal. Descending aorta is normal. IVC: Normal size and normal respiratory collapse consistent with normal right atrial pressure (<5 mmHg). Pulmonary Artery: Normal pulmonary artery size. CONCLUSIONS: Normal left ventricular systolic function with no focal wall motion abnormalities. Normal left ventricular size. Mild concentric left ventricular hypertrophy. Impaired diastolic relaxation Grade I. Ejection fraction is measured at 76 %. There is moderate enlargement of left atrium. Mild mitral annular calcification. Mild to moderate mitral valve regurgitation. Aortic cusps appear mildly sclerotic. Mild to moderate aortic valve regurgitation. Moderate pulmonary hypertension based on right ventricular systolic pressure. Estimated peak RVSP is 50 mmHg. Electronically Signed By: Jayesh Narayan MD 2023-12-30 09:24:34 BICYCLE ASSEMBLER Procedure Note Jayesh Narayan MD - 12/30/[address] [address] Echocardiogram Report Patient Name: BLANCA SOLITARIO A : 1945 Study Date: 12/30/2023 7:26:23 AM Gender: F Tech: AEROSPACE ENGINEER Location: Echo Lab 2 Ref Provider: FE BUCHANAN Height(Cm): 163 BSA: 2.03 Weight(Kg): 90.7 Quality: Adequate Order Provider: FE BUCHANAN PROCEDURES: Echocardiographic Report: Transthoracic echocardiogram with complete 2D, M-Mode, and color Dopplerexamination. 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 Measurements: 2D/M ModeDoppler Measurement Value Normal Range MeasurementValue Normal Range EF Teich MM 80.0 [ 54.0 - 74.0 ] percent HÉCTOR Vmax2.61 cm2 LVIDd MM 2.80 [ 3.80 - 5.20 ] cm AV Mean PG10 mmHg LVIDs MM 1.50 [ 2.20 - 3.50 ] cm AV Peak Vel2.13 [ 1.00 - 1.70 ] m/s LVPWd MM 1.20 [ 0.60 - 0.90 ] cm AV VTI41.99 cm IVSd MM 1.30 [ 0.60 - 0.90 ] cm LVOT Diam2.28 cm LA Dimension MM 3.92 [ 2.70 - 3.80 ] cm LVOT PeakVel 1.36 [ 0.70 - 1.10 ] m/s AoR Diam MM 3.21 [ 2.70 - 3.70 ] cm LVOT VTI24.59 cm ACS MM 1.90 cm MV E PeakVel 0.86 [ 0.60 - 1.30 ] m/s MV A Peak Erich 1.39 [ 1.00 - 1.20 ] m/s MV Mean PG 5 mmHg MV PHT 49 [ 20 - 100 ] msec MVA 4.50 MV Decel Time 160 [ 104 - 258 ] msec PV Peak Erich 1.17 [ 0.40 - 0.80 ] m/s TR Peak Erich 4.01 [ 1.00 - 2.80 ] m/s TR Peak PG 64 mmHg RVSP 79.00 [ 10.00 - 36.00 ] mmHg E` 0.05 m/s E/E` 17.82 [ <= 10.00 ] PA Pressure 79.00 [ 10.00 - 36.00 ] mmHg Measurement Value Normal Range MeasurementValue Normal Range 2D/M ModeDoppler - FINDINGS: Atrial Septum: Normal atrial septum. Left Ventricle: Normal left ventricular systolic function with no focal wall motionabnormalities. Normal left ventricular size. Mild concentric left ventricular hypertrophy.Impaired diastolic relaxation Grade I. Ejection fraction is measured at 76 %. Left Atrium: There is moderate enlargement of left atrium. Right Ventricle: Normal right ventricular size. Normal right ventricular systolicfunction. Right Atrium: The right atrium is normal in size. Aortic Valve: Aortic cusps appear mildly sclerotic. Mild to moderate aortic valveregurgitation. Mitral Valve: Mild mitral annular calcification. Mild to moderate mitral valveregurgitation. Pulmonic Valve: Normal structure of the pulmonic valve. Tricuspid Valve: Moderate pulmonary hypertension based on right ventricular systolicpressure. Estimated peak RVSP is 50 mmHg. Pericardium: Normal pericardium with no significant pericardial effusion. Aorta: Normal aortic root. Sinus of Valsalva is normal. Aortic arch is normal.Descending aorta is normal. IVC: Normal size and normal respiratory collapse consistent with normal rightatrial pressure (<5 mmHg). Pulmonary Artery: Normal pulmonary artery size. CONCLUSIONS: Normal left ventricular systolic function with no focal wall motionabnormalities. Normal left ventricular size. Mild concentric left ventricular hypertrophy.Impaired diastolic relaxation Grade I. Ejection fraction is measured at 76 %. There is moderate enlargement of left atrium. Mild mitral annular calcification. Mild to moderate mitral valveregurgitation. Aortic cusps appear mildly sclerotic. Mild to moderate aortic valveregurgitation. Moderate pulmonary hypertension based on right ventricular systolicpressure. Estimated peak RVSP is 50 mmHg. Electronically Signed By: Jayesh Narayan MD 2023-12-30 09:24:34 BICYCLE ASSEMBLER us Fe Cele Buchanan AEROSPACE ENGINEER CV ECHO PROCEDURES Susy l Result * COLONOSCOPY (12/26/2022 7:34 AM CDT) Anatomical Region Laterality Modality Other Narrative Procedure Note Yogesh East MD - 12/26/2022 7:34 AM CDT [facility] Patient Name: Blanca Solitario Procedure Date: 12/26/2022 7:34 AM Date of : 1945 Admit Type: Outpatient Age: 77 Gender: Female Attending MD: Yogesh East M.D. Room: [facility] ENDOSCOPY ROOM 1 Note Status: Finalized Patient Profile: Refer to note in patient chart for documentation of history and physical. Procedure: Colonoscopy Indications: Family history of colon cancer in a first-degree relative before age 60 years, Last colonoscopy: November 2017 Referring MD: Yaneli Summers M.D. Providers: Yogesh East M.D. Impression: - Hemorrhoids found on perianal exam. - One 3 mm polyp in the ascending colon, removedwith a jumbo cold forceps. Resected and retrieved. Recommendation: - Repeat colonoscopy in 5 years for surveillance. - Return to primary care physician as previously scheduled. Medicines: Propofol per Anesthesia Complications: No immediate complications. Estimated Blood Loss: Estimated blood loss: none. Procedure: Pre-Anesthesia Assessment: - This assessment was completed [Time ofAssessment] prior to the administration of sedation. The benefits, risks and alternatives of theprocedure and sedation were discussed and informed consentwas obtained. All questions were answered. Please referto the signed informed consent document in the medical record. The bowel preparation used was Miralax and bisacodyl tablets via single dose instruction. The scope was passed under direct vision. TheColonoscope [id number] was introduced through the anus and advanced to the the cecum, identified by appendiceal orifice and ileocecal valve. The colonoscopy was performed with difficulty due topoor bowel prep. [Solution]. Findings: Hemorrhoids were found on perianal exam. A 3 mm polyp was found in the ascending colon. The polyp was sessile. The polyp was removed with a jumbo cold forceps. Resection andretrieval were complete. Verification of patient identification for thespecimen was done by the physician and nurse using the patient's name andbirth date. Estimated blood loss was minimal. Electronically signed by Yogesh East M.D. Yogesh East M.D. 12/26/2022 8:45:52 AM Number of Addenda: 0 Note Initiated On: 12/26/2022 7:34 AM Procedure Code(s): --- Professional --- 41668, Colonoscopy, flexible; with biopsy, single or multiple --- Technical --- 41901, Colonoscopy, flexible; with biopsy, single or multiple Diagnosis Code(s): --- Professional --- Z80.0, Family history of malignant neoplasm of digestive organs D12.2, Benign neoplasm of ascending colon K64.9, Unspecified hemorrhoids --- Technical --- Z80.0, Family history of malignant neoplasm of digestive organs D12.2, Benign neoplasm of ascending colon K64.9, Unspecified hemorrhoids CPT copyright 2020 [employer]. All rights reserved. The codes documented in this report are preliminary and upon warehouse hand reviewmay be revised to meet current compliance requirements. Recognized by the [employer] for promoting quality in endoscopy us Yogesh East MD ENDOSCOPY PROCEDURES Final Re sult * Dexa Axial Skeleton Bone Density 1 or 2 Site (06/08/2020 9:51 AM CDT) Anatomical Region Laterality Modality Body N/A Other 06/08/2020 9:54 AM CDT Impressions 06/08/2020 9:55 AM CDT According to the World Health Organization criteria, based upon the left femoral neck bone mineral density (T score value of -2.2), the patient has low bone mass (osteopenia). General Recommendations: ?? 1. Consider an evaluation for secondary causes of osteoporosis in patients with low bone density. ?? 2. All patients should be counseled on adequate intake of calcium (1200 mg/day), vitamin D (600-800 IU daily) and exercise. ?? 3. The National Osteoporosis Foundation (NOF) guidelines recommend initiating pharmacological therapy, in addition to calcium, vitamin D and exercise, to reduce fracture risk when: ?? a. T-score less than or equal to -2.5 after secondary causes excluded. ?? b. T-score between -1.0 and -2.5 with secondary causes associated with high risk of fracture. ?? c. 10-year probability of hip fracture more than or equal to 3% (based on FRAX score). ?? d. 10-year probability of major osteoporosis related fracture more than or equal to 20% (based on FRAX score). ?? Followup: ?? People with diagnosed cases of osteoporosis or at high risk for fracture should have regular bone mineral density tests. ??For patients eligible for Medicare, routine testing is allowed once every 2 years. The testing frequency can be increased to one year for patients who have rapidly progressive disease or those who are receiving long-term steroid therapy. ?? Electronically signed by: Keyla Jacobson MD Narrative 06/08/2020 9:55 AM CDT COMPLETION DATE: 06/08/2020 10:00 AM ORDERING HEALTHCARE PROVIDER: JUANA PATEL STUDY DESCRIPTION: DEXA AXIAL SKELETON BONE DENSITY 1 OR MORE SITES CLINICAL INDICATIONS: Postmenopausal female here for osteoporosis screening. COMPARISON: None TECHNIQUE: Dual x-ray absorptiometry (DEXA) was performed using Bilneur system. GENERAL GUIDELINES: According to WHO guidelines, a T score of -1.0 or greater is normal, between -1.0 to -2.4 is osteopenia, and -2.5 or less is osteoporosis. Z score (instead of T score) is preferred for pediatric, young adults, premenopausal women and men under age of 50 years. ??In these patients, a Z score greater than or equal to -2.0 is considered to be in the expected range. FINDINGS: LEFT FEMORAL NECK: T-score -2.2 LEFT TOTAL HIP: T-score -1.7 LUMBAR SPINE: T-score -0.2 A FRAX score based upon a DXA study is not reported unless all of the following criteria are met. ??The patient: ?? a. ??Is an untreated postmenopausal woman or a man age 50 or older. ?? b. ??Has low bone mass (T-score between -1.0 and -2.5). ?? c. ??Has no prior hip or vertebral fracture (clinical or morphometric). ?? d. ??Has an evaluable hip for DXA study. ?? Procedure Note Keyla Jacobson MD - 06/08/2020 COMPLETION DATE: 06/08/2020 10:00 AM ORDERING HEALTHCARE PROVIDER: JUANA PATEL STUDY DESCRIPTION: DEXA AXIAL SKELETON BONE DENSITY 1 OR MORE SITES CLINICAL INDICATIONS: Postmenopausal female here for osteoporosis screening. COMPARISON: None TECHNIQUE: Dual x-ray absorptiometry (DEXA) was performed using Bilneur system. GENERAL GUIDELINES: According to WHO guidelines, a T score of -1.0 or greater is normal, between -1.0 to -2.4 is osteopenia, and -2.5 or less is osteoporosis. Z score (instead of T score) is preferred for pediatric, young adults, premenopausal women and men under age of 50 years. In these patients, a Z score greater than or equal to -2.0 is considered to be in the expected range. FINDINGS: LEFT FEMORAL NECK: T-score -2.2 LEFT TOTAL HIP: T-score -1.7 LUMBAR SPINE: T-score -0.2 A FRAX score based upon a DXA study is not reported unless all of the following criteria are met. The patient: a. Is an untreated postmenopausal woman or a man age 50 or older. b. Has low bone mass (T-score between -1.0 and -2.5). c. Has no prior hip or vertebral fracture (clinical or morphometric). d. Has an evaluable hip for DXA study. IMPRESSION: According to the World Health Organization criteria, based upon the left femoral neck bone mineral density (T score value of -2.2), the patient has low bone mass (osteopenia). General Recommendations: 1. Consider an evaluation for secondary causes of osteoporosis in patients with low bone density. 2. All patients should be counseled on adequate intake of calcium (1200 mg/day), vitamin D (600-800 IU daily) and exercise. 3. The National Osteoporosis Foundation (NOF) guidelines recommend initiating pharmacological therapy, in addition to calcium, vitamin D and exercise, to reduce fracture risk when: a. T-score less than or equal to -2.5 after secondary causes excluded. b. T-score between -1.0 and -2.5 with secondary causes associated with high risk of fracture. c. 10-year probability of hip fracture more than or equal to 3% (based on FRAX score). d. 10-year probability of major osteoporosis related fracture more than or equal to 20% (based on FRAX score). Followup: People with diagnosed cases of osteoporosis or at high risk for fracture should have regular bone mineral density tests. For patients eligible for Medicare, routine testing is allowed once every 2 years. The testing frequency can be increased to one year for patients who have rapidly progressive disease or those who are receiving long-term steroid therapy. Electronically signed by: Keyla Jacobson MD Juana Patel MD IMG DXA PROCEDURES Final Resul t * (ABNORMAL) Screening Mammogram Bilateral W Juan C (01/11/2019 10:22 AM BICYCLE ASSEMBLER) Anatomical Region Laterality Modality Breast Bilateral Mammography 01/11/2019 10:5 1 AM BICYCLE ASSEMBLER Impressions 01/11/2019 11:26 AM BICYCLE ASSEMBLER 1. ??9 MM NODULAR DENSITY RIGHT BREAST. ??ADDITIONAL VIEWS RECOMMENDED FOR FURTHER EVALUATION, AND POSSIBLE SONOGRAM. BI-RADS 0. ??Needs additional imaging. Electronically signed by: Jose J Serna M.D Narrative 01/11/2019 11:26 AM BICYCLE ASSEMBLER SCREENING MAMMOGRAM BILATERAL W JUAN C HISTORY: Encounter for screening mammogram for malignant neoplasm of breast. TECHNIQUE: 2 views of each breast were obtained with bilateral breast tomosynthesis. COMPARISON: 01/07/2018. FINDINGS: Scattered parenchymal densities bilaterally. A nodular focus is seen at the anterior aspect of the upper right breast near the retroareolar region. ??This measures 9 mm. ??Cone compression view and lateral medial view recommended for further evaluation, and possible sonogram. ??Scattered benign calcic patient are noted. Digital technology was employed plus computer aided detection software (R2) was utilized in interpretation of these images. ??This facility utilizes a reminder system to notify patient's of yearly mammograms. us Self Screening Mammogram IMG MAMMO PROCEDURES Fi nal Result * HEPATITIS C SCREENING (03/27/2016) HEP C Unknown Historical Provider HEALTH MAINTENANCE Final Result from Last 3 Months or Most Recently Relevant to Health Maintenance Insurance MEDICARE SOLUTIONS MEDICARE SOLUTIONS MEDICARE SOLUTIONS Advance Directives For more information, please contact: [phone] * Full Code (Latest Code Status on File) Date Activated Date Inactivated Comments 12/26/2022 7:18 AM 12/26/2022 1:55 PM * Full Code Date Activated Date Inactivated Comments 12/26/2022 7:18 AM 12/26/2022 7:18 AM * Full Code Date Activated Date Inactivated Comments 10/01/2022 9:50 AM 10/02/2022 4:55 AM * Full Code Date Activated Date Inactivated Comments 12/18/2017 8:33 AM 12/18/2017 1:30 PM * Full Code Date Activated Date Inactivated Comments 12/18/2017 8:33 AM 12/18/2017 8:33 AM Care Teams [place] Relationship Specialty Start Date End Date Yaneli Summers MD [address] [address] PCP - General Family Medicine 06/04/21 Alvaro Horton MD PhD [address] [place] [address] Radiation Oncologist Radiation Oncology 05/01/23 Charles Pa MD [address] [address] Consulting Physician Pulmonary Disease 05/01/23
--- OUTSIDE RECORDS SUMMARY | 2024-03-31 08:57 | XMS_ITS ---
Author Organization [facility] Address [address] [place] [address] Care Team Providers Care Personal Lines Account Executive Name Role Phone Yaneli Summers MD Primary Care Provide r Alvaro Horton MD PhD Unavailable [phone] Charles Pa MD Unavailable Active Problems Problem Noted Date Diagnosed Date [...] 03/04/2023 Assessment & Plan (03/04/2023 9:41 AM CULTURAL CENTRE MANAGER): We have discussed the findings on the [...] ultrasound Assessment & Plan (03/04/2023 9:42 AM CULTURAL CENTRE MANAGER): The splenic lesion seen on ultrasound was not visualized on the MRI. However there was 2 lesions identified within the kidney, 1 favored to be a cystic lesion while the other 1 favor to be a renal carcinoma. I will send her to urology for further management. She is in understanding. LUQ abdominal pain 12/30/2022 Assessment & Plan (01/30/2023 12:02 PM CULTURAL CENTRE MANAGER): We have discussed that splenic cyst can [...] discussions. Assessment & Plan (12/30/2022 9:55 AM CULTURAL CENTRE MANAGER): New concern Chronic Not at goal Possible [...] up to date Pap smear: follows with instructional supervisor Mammo: has an appointment set up, Goes to [facility] Lung cancer screening: due in July, follows with pulmonary F/u in 1 year for annual Assessment & Plan (06/25/2022 8:33 AM CDT): Labs reviewed wnl Colonoscopy due in 2022, order placed for november Pap smear: follows with instructional supervisor Mammo: has an appointment set up, Goes to [facility] Lung cancer screening: due in July, follows with pulmonary F/u in 1 year for annual Assessment & Plan (06/04/2021 11:45 AM CDT): Labs reviewed wnl Colonoscopy due in 2022 Pap smear: follows with instructional supervisor Mammo: has an appointment set up F/u [...] (11/10/2017): Added automatically from request for surgery [id number] Hx of colonic polyps 11/10/2017 Overview (11/10/2017): Added automatically from request for surgery [id number] Non-rheumatic tricuspid valve insufficiency 03/28 Chronic obstructive [...] months Assessment & Plan (12/30/2022 9:26 AM CULTURAL CENTRE MANAGER): Bp in the office today BP Readings [...] adult 03/22/2015 Overview (05/31/2016): Obesity (BMI 30.0-34.9) Current Oncology Plans No current plan information found. Past Plans No past plan information found. Radiation Treatments * No radiation treatments are documented for this patient in [facility]. Treatments may have been administered in another system. Lifetime Dose Tracking * Chemical Lifetime Dose Automatic Entry Manual Entr y DLP 306.1 mGycm 306.1 mGycm 0 mGycm CTDIvol 9.14 mGy 9.14 mGy 0 mGy Resolved Problems Problem Noted Date Diagnosed Date [...] (09/09/2019): Added automatically from request for surgery [id number] Nonrheumatic aortic valve insufficiency 09/01/2019 11/23/2019 Bronchitis 12/01/2017 03/17/2018 Family hx of colon cancer 11/10/2017 Overview (11/10/2017): Added automatically from request for surgery [id number] Dysphagia 11/10/2017 11/09/2018 Overview (11/10/2017): Added automatically from request for surgery [id number] Nonrheumatic aortic valve insufficiency 04/22/2017 11/23/2019 Hypertension [...]
--- OUTSIDE RECORDS SUMMARY | 2024-03-31 08:57 | XMS_ITS | Clinical Summary ---
Author Organization [facility] Address [address] [place] [address] Care Team Providers Care Assistant Professor Of Biology Name Role Phone Kenroy Patel MD Primary Care Provider Unavail able Source Comments [facility],non-owned Affiliates and Associated Physician Practices is amultiple site organization consisting of ambulatory clinics and hospital sitesin [place], [place], [place] and [place]. This disclosure is being madepursuant to the Care Everywhere program and may not contain all information available regarding this patient. Last updated 17.[facility] PostRank Allergies Active Allergy Reactions Criticality Noted Date Comments Moxifloxacin Unknown Povidone Iodine Unknown Shellfish-Derived Products Unknown Medications * Be aware that medications may not be up to date on this document. Alwaysverify current medications with the patient. Medication Sig Dispensed Refills Start Date End Date Status amLODIPine (NORVASC) 5 MG tablet Take 1 tablet daily 08/29/2016 Active raNITIdine (ZANTAC) 300 MG tablet Take 300 mg by mouth 05/05/2017 Active albuterol HFA (VENTOLIN HFA) 108 (90 BASE) MCG/ACT inhaler 90 mcg 05/04/2009 Act nikki TRIAMTERENE PO Active Social History Tobacco Use Types Packs/Day Years Used Date Smoking Tobacco: Former Smokeless Tobacco: Never Sex and Gender Information Value Date Recorded Sex Assigned at Not on file Gender Identity Not on file Sexual Orientation Not on file Last Filed Vital Signs Vital Sign Reading Time Taken Comments Blood Pressure 140/58 08/24/2017 2:16 PM CDT Pulse 115 08/24/2017 2:16 PM CDT Temperature 36.9 ??C (98.5 ??F) 08/24/2017 2:16 PM CD T Respiratory Rate - - Oxygen Saturation 94% 08/24/2017 2:16 PM CDT Inhaled Oxygen Concentration - - Weight 90.7 kg (200 lb) 08/24/2017 2:16 PM CDT Height 165.1 cm (5' 5 ) 08/24/2017 2:16 PM CDT Body Mass Index 33.28 08/24/2017 2:16 PM CDT Plan of Treatment Health Maintenance Due Date Last Done Comments BONE DENSITY TESTING 1945 HEPATITIS C SCREENING 03/09/1964 DTAP/TDAP/TD VACCINES (1 - Tdap) 1965 PNEUMOCOCCAL VACCINE 50+ (1 of 1 - PCV) 1996 ZOSTER VACCINE (1 of 2) 1996 Respiratory Syncytial Virus (RSV) Vaccine Pt: or over 60 yrs (1 - 1-dose 75+ series) 2021 COVID-19 VACCINE (1 - 2023- season) 2023 INFLUENZA VACCINE (#1) 2023 7, 12/13/2015, 12/01/2014, Additional history exists DEPRESSION SCREENING 02/25/2024 MEDICARE AWV ? CALENDAR YEAR 2024 HEPATITIS B VACCINE Aged Out No longe r eligible based on patient's age to complete this topic HIB VACCINE Aged Out No longer eligi ble based on patient's age to complete this topic HPV VACCINE Aged Out No longer eligi ble based on patient's age to complete this topic MENINGOCOCCAL (Group B) VACCINE Aged Out No longer eligible based on patient's age to complete this topic MENINGOCOCCAL VACCINE Aged Out No radha pacheco eligible based on patient's age to complete this topic Care Teams Assistant Professor Of Biology Relationship Specialty Start Date End Date Kenroy Patel MD PCP - General Internal Medicine 08/24/17
--- OUTSIDE RECORDS SUMMARY | 2024-03-31 08:57 | XMS_ITS | Referral Summary ---
Author Organization [facility] Address [address] [place] [address] Care Team Providers Care Administrator Of Home Health Name Role Phone Yaneli Summers MD Primary Care Provide r Alvaro coello MD PhD Unavailable Charles Pa MD Unavailable Encounters Date Type Department Care Team Description 03/18/2024 Orders Only [facility] Pulmonary at [address] [place] [phone] Charles Pa MD 03/18/2024 Telephone [facility] Pulmonary at [address] [place] [phone] Regina Flores LPN sick call 01/29/2024 Telephone [facility] Pulmonary at [address] [place] [phone] Sandie Pond MA Test Results 01/29/2024 Telephone [facility] Pulmonary at [address] [place] [phone] Sandie Pond MA Med Management 01/26/2024 8:14 AM REGIONAL ACCOUNT EXECUTIVE - 01/26/2024 11:59 PM REGIONAL ACCOUNT EXECUTIVE Hospital Encounter [facility] Respiratory [address] [place] [address] Chronic obstructive pulmonary disease, unspecified COPD type (HCC) Discharge Disposition: Discharge to home or self care 01/15/2024 2:10 PM REGIONAL ACCOUNT EXECUTIVE Lab [address] Chronic diastolic heart failure (HCC) 01/15/2024 1:30 PM REGIONAL ACCOUNT EXECUTIVE Office Visit [facility] Pulmonary at [address] [place] [phone] Charles Pa MD Chronic obstructive pulmonary disease, unspecified COPD type (HCC) (Primary Dx); Pulmonary nodule; Chronic diastolic heart failure (HCC); Cigarette nicotine dependence in remission 01/08/2024 8:32 AM REGIONAL ACCOUNT EXECUTIVE - 01/08/2024 11:59 PM REGIONAL ACCOUNT EXECUTIVE Hospital Encounter [address] [address] Pulmonary nodule Discharge Disposition: Discharge to home or self care 01/07/[address] [address] Ileana Thomas 01/02/2024 9:15 AM REGIONAL ACCOUNT EXECUTIVE Office Visit [facility] at [address] [place] [phone] Fe Buchanan NP PAC (premature atrial contraction) (Primary Dx); Essential hypertension; Diastolic dysfunction; Mild mitral and aortic regurgitation 12/30/2023 7:24 AM REGIONAL ACCOUNT EXECUTIVE - 12/30/2023 11:59 PM REGIONAL ACCOUNT EXECUTIVE Hospital Encounter [address] [address] Discharge Disposition: Discharge to home or self care 12/30/2023 7:23 AM REGIONAL ACCOUNT EXECUTIVE - 12/30/2023 11:59 PM REGIONAL ACCOUNT EXECUTIVE Hospital Encounter [facility] Cardiology [address] [place] [phone] Coronary artery disease, unspecified vessel or lesion type, unspecified whether angina present, unspecified whether [place] or transplanted heart Discharge Disposition: Discharge to home or self care 12/30/2023 7:23 AM REGIONAL ACCOUNT EXECUTIVE - 12/30/2023 11:59 PM REGIONAL ACCOUNT EXECUTIVE Hospital Encounter [facility] [address] [place] [address] Discharge Disposition: Discharge to home or self care 12/30/2023 7:22 AM REGIONAL ACCOUNT EXECUTIVE - 12/30/2023 11:59 PM REGIONAL ACCOUNT EXECUTIVE Hospital Encounter [facility] Imaging Center [address] [place] [address] Coronary artery disease, unspecified vessel or lesion type, unspecified whether angina present, unspecified whether [place] or transplanted heart Discharge Disposition: Discharge to home or self care 12/30/2023 7:20 AM REGIONAL ACCOUNT EXECUTIVE - 12/30/2023 11:59 PM REGIONAL ACCOUNT EXECUTIVE Hospital Encounter [facility] Cardiology [address] [place] [address] Non-rheumatic tricuspid valve insufficiency Discharge Disposition: Discharge to home or self care from Last 3 Months Allergies Active Allergy Reactions Criticality Noted Date [...] 03/04/2023 Assessment & Plan (03/04/2023 9:41 AM REGIONAL ACCOUNT EXECUTIVE): We have discussed the findings on the [...] ultrasound Assessment & Plan (03/04/2023 9:42 AM REGIONAL ACCOUNT EXECUTIVE): The splenic lesion seen on ultrasound was not visualized on the MRI. However there was 2 lesions identified within the kidney, 1 favored to be a cystic lesion while the other 1 favor to be a renal carcinoma. I will send her to urology for further management. She is in understanding. LUQ abdominal pain 12/30/2022 Assessment & Plan (01/30/2023 12:02 PM REGIONAL ACCOUNT EXECUTIVE): We have discussed that splenic cyst can [...] discussions. Assessment & Plan (12/30/2022 9:55 AM REGIONAL ACCOUNT EXECUTIVE): New concern Chronic Not at goal Possible [...] up to date Pap smear: follows with vp scientific affairs Mammo: has an appointment set up, Goes to [facility] Lung cancer screening: due in July, follows with pulmonary F/u in 1 year for annual Assessment & Plan (06/25/2022 8:33 AM CDT): Labs reviewed wnl Colonoscopy due in 2022, order placed for november Pap smear: follows with [facility] scientific affairs Mammo: has an appointment set up, Goes to [facility] Lung cancer screening: due in July, follows with pulmonary F/u in 1 year for annual Assessment & Plan (06/04/2021 11:45 AM CDT): Labs reviewed wnl Colonoscopy due in 2022 Pap smear: follows with [facility] scientific affairs Mammo: has an appointment set up F/u [...] (11/10/2017): Added automatically from request for surgery [id number] Hx of colonic polyps 11/10/2017 Overview (11/10/2017): Added automatically from request for surgery [id number] Non-rheumatic tricuspid valve insufficiency 03/28 Chronic obstructive [...] months Assessment & Plan (12/30/2022 9:26 AM REGIONAL ACCOUNT EXECUTIVE): Bp in the office today BP Readings [...] (09/09/2019): Added automatically from request for surgery [id number] Nonrheumatic aortic valve insufficiency 09/01/2019 11/23/2019 Bronchitis 12/01/2017 03/17/2018 Family hx of colon cancer 11/10/2017 Overview (11/10/2017): Added automatically from request for surgery [id number] Dysphagia 11/10/2017 11/09/2018 Overview (11/10/2017): Added automatically from request for surgery [id number] Nonrheumatic aortic valve insufficiency 04/22/2017 11/23/2019 Hypertension [...] 07/10/2013 10/10/19 17 Overview (05/31/2016): BENIGN HYPERTENSION Immunizations Name Administration Dates Next Due COVID-19 mRNA (Hotelogix) 0.3 m L (30 mcg) vaccine (12 years and up) 12/21/2023 Influenza, Quadrivalent, Hig h Dose, Preservative Free, Intrr 12/08/2022,12/02/2021,12/04/2020,11/22 Influenza, Split 01/02/2011 Influenza, Trivalent, Adjuva nted, Intramuscular 11/21/2017 Influenza, Trivalent, High D ose, Split, Preservative Free, Intramuscular 12/14/2023,11/09/2018,11/22/2017,12/02,12/12/2015,11/30/2014 Influenza, Trivalent, IM (MDV) 12/09/2012,2011,11/25/2007 Influenza, Unspecified 11/05/2023(Deferr ed: Patient Refused),12/12/2022,12/16/2021 Mister Bell SARS-CoV-2 Monovalent Vaccination (12+ Yrs) PURPLE 05/18/2020,04/20/2020 Pfizer Sars-Cov-2 Bivalent V accination (12+ YRS) 12/16/2021 Pneumococcal Conjugate PCV 13 02/28/2015 Pneumococcal Polysaccharide PPV23 12/04/2020, Td, adsorbed 09/03/2019 Tdap 05/01/2007 ZOSTER LIVE 05/10/2015 Social History Tobacco Use Types Packs/Day Years [...] on file Legal Sex Female 6:17 PM REGIONAL ACCOUNT EXECUTIVE Gender Identity Not on file Sexual Orientation Not on file Last Filed Vital Signs Vital Sign Reading Time Taken Comments Blood Pressure 132/80 01/15/2024 1:23 PM REGIONAL ACCOUNT EXECUTIVE Pulse 111 01/15/2024 1:23 PM REGIONAL ACCOUNT EXECUTIVE Temperature 36.4 ??C (97.5 ??F) 01/15/2024 1:23 PM CS T Respiratory Rate 18 01/02/2024 9:19 AM REGIONAL ACCOUNT EXECUTIVE Oxygen Saturation 95% 01/15/2024 1:23 PM REGIONAL ACCOUNT EXECUTIVE Inhaled Oxygen Concentration - - Weight 90.9 kg (200 lb 6.4 oz) 01/15/2024 1:23 P M REGIONAL ACCOUNT EXECUTIVE Height 162.6 cm (5' 4 ) 01/15/2024 1:23 PM REGIONAL ACCOUNT EXECUTIVE Body Mass Index 34.4 01/15/2024 1:23 PM REGIONAL ACCOUNT EXECUTIVE Plan of Treatment Not on file Procedures Procedure Name Priority Date/Time Associated Diagnosis Comments PULMONARY FUNCTION TEST (PFT) Routine 01/26/2024 9:57 AM REGIONAL ACCOUNT EXECUTIVE Chronic obstructive pulmonary disease, unspecified COPD type (HCC) PRO B-TYPE NATRIURETIC PEPTIDE Routine 01/15/2024 2:10 PM REGIONAL ACCOUNT EXECUTIVE Chronic diastolic heart failure (HCC) CT CHEST WO CONTRAST F/U LUNG SCREEN PROTOCOL Schedule Routine, Read Routine (OP Routine) 01/08/2024 9:08 AM REGIONAL ACCOUNT EXECUTIVE Pulmonary nodule STRESS TEST FOR DUAL READ Schedule Routine, Read Routine (OP Routine) 12/30/2023 10:56 AM REGIONAL ACCOUNT EXECUTIVE Coronary artery disease, unspecified vessel or lesion type, unspecified whether angina present, unspecified whether [place] or transplanted heart NM MPI SPECT (REST AND/OR STRESS) MULTIPLE STUDIES Schedule Routine, Read Routine (OP Routine) 12/30/2023 10:56 AM REGIONAL ACCOUNT EXECUTIVE Coronary artery disease, unspecified vessel or lesion type, unspecified whether angina present, unspecified whether [place] or transplanted heart TRANSTHORACIC ECHO (TTE) COMPLETE W DOPPLER/CF WO CONTRAST Routine 12/30/2023 8:04 AM REGIONAL ACCOUNT EXECUTIVE Non-rheumatic tricuspid valve insufficiency COLONOSCOPY 12/26/2022 7:34 AM CDT DEXA AXIAL SKELETON BONE DENSITY 1 OR MORE SITES Schedule Routine, Read Routine (OP Routine) 06/08/2020 9:51 AM CDT Other specified disorders of bone density and structure, multiple sites SCREENING MAMMOGRAM BILATERAL W JUAN C Schedule Routine, Read Routine (OP Routine) 01/11/2019 10:22 AM REGIONAL ACCOUNT EXECUTIVE Encounter for screening mammogram for malignant neoplasm of breast HM HEPATITIS C SCREENING Routine 03/27/2016 from Last 3 Months or Most Recently Relevant to Health Maintenance Results * Pulmonary Function Test - (01/26/2024 9:57 AM REGIONAL ACCOUNT EXECUTIVE) Anatomical Region Laterality Modality PFT 01/26/2024 8:37 AM REGIONAL ACCOUNT EXECUTIVE Impressions 01/26/2024 2:32 PM REGIONAL ACCOUNT EXECUTIVE 1. ?? Spirometry consistent with moderate obstructive defect with reduced FVC likely in the setting of air trapping. 2. ?? There is no bronchodilator response. 3. ?? Lung volumes consistent with air trapping. 4. ?? Diffusion capacity is normal. Electronically signed by Anthony Ramos DO Pulmonary & Critical Care Narrative 01/26/2024 2:32 PM REGIONAL ACCOUNT EXECUTIVE PFT performed at:->[facility] PULMONARY FUNCTION TESTS Blanca Solitario 78 [...] Pro B-type natriuretic peptide (01/15/2024 2:10 PM REGIONAL ACCOUNT EXECUTIVE) NT-proBNP 177 <=450 pg/mL Comment: Interpretive Comments: [...] et.al. Eur Heart J. 2006:27:330-337. 2. Dimple RW, Nichols AM. J. AM Bill Cardiol: Cardiovasc Imag. 2009;2: 216- 225. Interpretive Data Last Revised Date: 2017. Blood 01/15/2024 2:10 PM REGIONAL ACCOUNT EXECUTIVE 01/15/2024 3:49 PM REGIONAL ACCOUNT EXECUTIVE us Charles Pa MD LAB BLOOD ORDERABLES Final Resul t [facility] Department of Laboratories [place], [place] [id number] * CT Chest WO Contrast F/U Lung Screen Protocol (01/08/2024 9:08 AM REGIONAL ACCOUNT EXECUTIVE) Anatomical Region Laterality Modality Chest N/A Computed Tomogra phy 01/13/2024 9:19 AM REGIONAL ACCOUNT EXECUTIVE Narrative 01/13/2024 9:36 AM REGIONAL ACCOUNT EXECUTIVE EXAM DESCRIPTION: ?? CT CHEST WO CONTRAST [...] AM T: ??01/13/2024 9:36 AM Report ID: [id number] Reading Location: ??[id number] Procedure Note Xiang Carrizales MD - 01/13/2024 [...] Xiang Carrizales M.D. AG: JESÚS Report ID: [id number] Reading Location: [id number] Charles Pa MD IM CT PROCEDURES Final Result * NM MPI SPECT (Rest and/or Stress) Multiple Studies (12/30/2023 10:56 AM REGIONAL ACCOUNT EXECUTIVE) Anatomical Region Laterality Modality Body N/A Nuclear Medicine 12/30/2023 8:04 AM REGIONAL ACCOUNT EXECUTIVE Narrative 12/31/2023 1:40 PM REGIONAL ACCOUNT EXECUTIVE [address] [place] [address] Appear Report Patient Name: BLANCA SOLITARIO A : 1945 Study Date: 12/30/2023 8:04:19 AM Gender: F Tech: ??Ref Provider: FE BUCHANAN Height(Cm): ??BSA: Weight(Kg): ? Order Provider: FE BUCHANAN - PROCEDURES: Pharmacologic SPECT Report.: Myocardial perfusion imaging with Sestamibi SPECT at rest and post regadenoson (Lexiscan) infusion. INDICATIONS: I25.10 Atherosclerotic heart disease of [place] coronary artery without angina pectoris. FINDINGS: Procedure [...] Signed By: Janny Duran MD 2023-12-31 13:40:31 REGIONAL ACCOUNT EXECUTIVE Procedure Note Janny Duran MD - 12/31/[address] [place] [address] Appear Report Patient Name: BLANCA SOLITARIO A : 1945 Study Date: 12/30/2023 8:04:19 AM Gender: F Tech: Ref Provider: FE BUCHANAN Height(Cm): BSA: Weight(Kg): Order Provider: FE BUCHANAN - PROCEDURES: Pharmacologic SPECT Report.: Myocardial perfusion imaging with Sestamibi SPECT at rest and postregadenoson (Lexiscan) infusion. INDICATIONS: I25.10 Atherosclerotic heart disease of [place] coronary artery withoutangina pectoris. FINDINGS: Procedure Data: [...] Signed By: Janny Duran MD 2023-12-31 13:40:31 REGIONAL ACCOUNT EXECUTIVE [facility] Cele Buchanan SHIRT SEWER IMG HI PROCEDURES Final Result * Stress Test for Myocardial Perfusion (12/30/2023 10:56 AM REGIONAL ACCOUNT EXECUTIVE) Anatomical Region Laterality Modality Nuclear Medicine 12/30/2023 10:0 0 AM REGIONAL ACCOUNT EXECUTIVE Narrative 12/30/2023 2:28 PM REGIONAL ACCOUNT EXECUTIVE [address] [address] [place] [employer] Report Patient Name: BLANCA SOLITARIO A : 1945 Study Date: 12/30/2023 10:00:00 AM Gender: F Tech: louis caballero Ref Provider: FE BUCHANAN Height(Cm): 163 BSA: 3.01 Weight(Kg): 200 ?Heart Rate: 122 Order Provider: FE BUCHANAN PROCEDURES: Pharmacologic SPECT Report.: Myocardial perfusion imaging with Sestamibi SPECT at rest and post regadenoson (Lexiscan) infusion. INDICATIONS: I25.10 Atherosclerotic heart disease of [place] coronary artery without angina pectoris. FINDINGS: Procedure [...] Signed By: Dr Lukas Nuñez 2023-12-30 14:28:26 REGIONAL ACCOUNT EXECUTIVE Procedure Note Lukas Nuñez MD - 12/30/[address] [place] [address] Lexiscan Report Patient Name: BLANCA SOLITARIO A : 1945 Study Date: 12/30/2023 10:00:00 AM Gender: F Tech: louis caballero Ref Provider: FE BUCHANAN Height(Cm): 163 BSA: 3.01 Weight(Kg): 200 Heart Rate: 122 Order Provider: FE BUCHANAN PROCEDURES: Pharmacologic SPECT Report.: Myocardial perfusion imaging with Sestamibi SPECT at rest and postregadenoson (Lexiscan) infusion. INDICATIONS: I25.10 Atherosclerotic heart disease of [place] coronary artery withoutangina pectoris. FINDINGS: Procedure Data: [...] Signed By: Dr Lukas Nuñez 2023-12-30 14:28:26 REGIONAL ACCOUNT EXECUTIVE Fe Buchanan NP CV STRESS PROCEDURES Fi nal Result * TRANSTHORACIC ECHO (TTE) COMPLETE W DOPPLER/CF WO CONTRAST (12/30/2023 8:04 AM REGIONAL ACCOUNT EXECUTIVE) Anatomical Region Laterality Modality Ultrasound 12/30/2023 7:26 AM REGIONAL ACCOUNT EXECUTIVE Narrative 12/30/2023 9:25 AM REGIONAL ACCOUNT EXECUTIVE [address] [place] [address] Echocardiogram Report Patient Name: BLANCA SOLITARIO A : 1945 Study Date: 12/30/2023 7:26:23 AM Gender: F Tech: SHIRT SEWER Location: Echo Lab 2 Ref Provider: FE [...] Signed By: Jayesh Narayan MD 2023-12-30 09:24:34 REGIONAL ACCOUNT EXECUTIVE Procedure Note Jayesh Narayan MD - 12/30/[address] [place] [address] Echocardiogram Report Patient Name: BLANCA SOLITARIO A : 1945 Study Date: 12/30/2023 7:26:23 AM Gender: F Tech: SHIRT SEWER Location: Echo Lab 2 Ref Provider: FE [...] Signed By: Jayesh Narayan MD 2023-12-30 09:24:34 REGIONAL ACCOUNT EXECUTIVE Fe Buchanan NP CV ECHO PROCEDURES Susy l Result * COLONOSCOPY (12/26/2022 7:34 AM CDT) Anatomical Region Laterality Modality Other Narrative Procedure Note Yogesh East MD - 12/26/2022 7:34 AM CDT [facility] Patient Name: Blanca Solitario Procedure Date: 12/26/2022 7:34 AM Date of : 1945 Admit Type: Outpatient Age: 77 Gender: Female Attending MD: Yogesh East M.D. Room: [facility] ENDOSCOPY ROOM 1 Note Status: Finalized Patient [...] scope was passed under direct vision. TheColonoscope [id number] was introduced through the anus and advanced [...] 7:34 AM Procedure Code(s): --- Professional --- 37053, Colonoscopy, flexible; with biopsy, single or multiple --- Technical --- 26180, Colonoscopy, flexible; with biopsy, single or multiple Diagnosis Code(s): --- Professional --- Z80.0, Family history of malignant neoplasm of digestive organs D12.2, Benign neoplasm of ascending colon K64.9, Unspecified hemorrhoids --- Technical --- Z80.0, Family history of malignant neoplasm of digestive organs D12.2, Benign neoplasm of ascending colon K64.9, Unspecified hemorrhoids CPT copyright 2020 [employer]. All rights reserved. The codes documented in this report are preliminary and upon digital printer reviewmay be revised to meet current compliance requirements. Recognized by the [employer] for promoting quality [...] Dual x-ray absorptiometry (DEXA) was performed using HoloIndotrading system. GENERAL GUIDELINES: According to WHO guidelines, [...] 06/08/2020 10:00 AM ORDERING HEALTHCARE PROVIDER: JUANA TINEO DESCRIPTION: DEXA AXIAL SKELETON BONE DENSITY 1 OR MORE SITES CLINICAL INDICATIONS: Postmenopausal female here for osteoporosis screening. COMPARISON: None TECHNIQUE: Dual x-ray absorptiometry (DEXA) was performed using Operatix system. GENERAL GUIDELINES: According to WHO guidelines, [...] Bilateral W Juan C (01/11/2019 10:22 AM REGIONAL ACCOUNT EXECUTIVE) Anatomical Region Laterality Modality Breast Bilateral Mammography 01/11/2019 10:5 1 AM REGIONAL ACCOUNT EXECUTIVE Impressions 01/11/2019 11:26 AM REGIONAL ACCOUNT EXECUTIVE 1. ??9 MM NODULAR DENSITY RIGHT BREAST. ??ADDITIONAL VIEWS RECOMMENDED FOR FURTHER EVALUATION, AND POSSIBLE SONOGRAM. BI-RADS 0. ??Needs additional imaging. Electronically signed by: Candida Martel 01/11/2019 11:26 AM REGIONAL ACCOUNT EXECUTIVE SCREENING MAMMOGRAM BILATERAL W JUAN C HISTORY: [...] system to notify patient's of yearly mammograms. Self Screening Mammogram IMG MAMMO PROCEDURES Fi nal Result * HEPATITIS C SCREENING (03/27/2016) HEP C Unknown Historical Provider MD HEALTH MAINTENANCE Final Result from Last 3 Months or Most Recently Relevant to Health Maintenance Insurance MEDICARE SOLUTIONS MEDICARE SOLUTIONS MEDICARE SOLUTIONS Advance Directives For more information, please contact: [phone] * Full Code (Latest Code Status on [...] 8:33 AM 12/18/2017 8:33 AM Care Teams Administrator Of Home Health Relationship Specialty Start Date End Date Yaneli Summers MD 2 [facility] [address] [address] PCP - General Family Medicine 06/04/21 Alvaro Horton MD PhD 6 [facility] [place] [address] Radiation Oncologist Radiation Oncology 05/01/23 Charles Pa MD 4 [facility] [address] [address] Consulting Physician Pulmonary Disease 05/01/23
--- OUTSIDE RECORDS SUMMARY | 2024-03-31 08:57 | XMS_ITS | Clinical Summary ---
Author Organization [facility] Address [address] [place] [address] Care Team Providers Care Raw Juice Weigher Name Role Phone Yaneli Summers MD Primary Care Provide r Allergies Active Allergy Reactions Criticality Noted Date Comments Moxifloxacin Unknown 10/23/2023 Povidone-Iodine Itching,Unknown Low 10/01/2022 Shellfish Containing Products Anaphylaxis High 10/22 Medications albuterol sulfate HFA 90 mcg/actuation aerosol inhaler Take 2 Puffs by inhalation. 4 Active amLODIPine (NORVASC) 5 mg tablet Take 5 mg by mouth daily. 4 Active budesonide-form oteroL (SYMBICORT) 160-4.5 mcg/actuation HFA Aerosol Inhaler USE 2 INHALATIONS BY MOUTH TWICE DAILY RINSE MOUTH WITH WATER AFTER USE DO NOT SWALLOW 4 Active EPINEPHrine (EPIPEN) 0.3 mg/0.3 mL Auto-Injector Inject 0.3 mg by subcutaneous injection one time only. 3 Active metoprolol succinate (TOPROL XL) 50 mg Extended Release 24 hour tablet Take 50 mg by mouth daily. 4 10/10/19 25 Active triamterene-hyd roCHLOROthiazid e (DYAZIDE) 37.5-25 mg capsule Take 1 Capsule by mouth daily. 4 Active tamoxifen (NOLVADEX) 20 mg tablet Take 1 Tablet (20 mg) by mouth daily. 90 Tablet 3 4 Active Active Problems No known active problems Encounters Date Type Department Care Team Description 03/23/2024 External Device Data STL ABSTRACTION Provider, Abstract 03/17/2024 External Device Data ST[facility] ABSTRACTION Provider, Abstract 03/17/2024 External Device Data ST[facility] ABSTRACTION Provider, Abstract 01/08/2024 Refill [facility] Oncology and Hematology [facility] [address] [place] [address] Daron Saenz MD 01/07/2024 4:30 PM TORCH STRAIGHTENER AND HEATER Telephone Check Up [facility] Oncology and Hematology [facility] [address] [place] [phone] Daron Saenz MD Malignant neoplasm of lower-inner quadrant of left breast in female, estrogen receptor positive (CMS/HCC) (Primary Dx) from Last 3 Months Family History Medical History Relation Name Comments Diabetes Father Heart Disease Father Diabetes Mother Heart Disease Mother No Known Problems Sister 1 No Known Problems Sister 2 Colon Cancer Sister 3 Relation Name Status Comments Father Mother Sister 1 Alive Sister 2 Alive Sister 3 Social History Tobacco Use Types Packs/Day Years Used Date Smoking Tobacco: Former Cigarettes 1.5 30 Q uit: 10/22/2013 Tobacco Cessation:Counseling Given: Not Answered Comments Unknown Sex and Gender Information Value Date Recorded Sex Assigned at Not on file Legal Sex Female 4:02 PM CDT Gender Identity Not on file Sexual Orientation Not on file Last Filed Vital Signs Vital Sign Reading Time Taken Comments Blood Pressure 151/95 12/09/2023 1:04 PM CDT Pulse 114 12/09/2023 12:58 PM CDT Temperature 35.9 ??C (96.6 ??F) 12/09/2023 1 2:58 PM CDT Respiratory Rate 14 12/09/2023 12:5 8 PM CDT Oxygen Saturation 95% 12/09/2023 12: 58 PM CDT Inhaled Oxygen Concentration - - Weight 89.7 kg (197 lb 12.8 oz) 024 12:58 PM CDT Height 162.6 cm (5' 4 ) 10/23/2023 2:49 PM CDT Body Mass Index 33.95 10/23/2023 2:49 PM CDT Plan of Treatment Upcoming Encounters Date Type Department Care Team (Late st Contact Info) Description 04/09/2024 12:45 PM [employer] STRA[employer]ENER AND HEATER Office Visit [facility] Oncology and Hematology - [place] [address] [place] [address] Daron Saenz MD [address] [facility] [address] [place] [address] Health Maintenance Due Date Last Done Comments ZOSTER VACCINE (2 of 3) 07/05/2015 05/10/2015 DTAP/TDAP/TD VACCINES (2 - T d or Tdap) 04/30/2017 05/01/2007 RSV VACCINE (60+ or ) (1 - 1-dose 75+ series) 2021 [place] Preventative Visit/Annual Wellness Visit 02/25/2024 06/26/2023, 06/25/2022, 06/04/2021, Additional history exists OSTEOPOROSIS SCREENING Completed 06/08/2020, 2020 PNEUMOCOCCAL VACCINE 65+ YEARS Completed 1 , 02/28/2015, 12/18/2009 INFLUENZA VACCINE Completed 12/14/2023, , 12/02/2021, Additional history exists COVID-19 Vaccine Completed 12/21/2023, , 05/18/2020, Additional history exists Insurance Care Teams Raw Juice Weigher Relationship Specialty Start Date End Date Yaneli Summers MD [address] [facility] [place] [address] PCP - General Family Practice 10/23/23
--- OUTSIDE RECORDS SUMMARY | 2024-03-31 08:57 | XMS_ITS | Patient Health Summary ---
Author Organization [facility] Address [address] [facility] [place] [address] Care Team Providers Care Transit Department Clerk Name Role Phone Kenroy Patel MD Primary Care Provider Unavail able Note from [facility],non-owned Affiliates and Associated Physician Practices is amultiple site organization consisting of ambulatory clinics and hospital sitesin [place], [place], [place] and [place]. This disclosure is being madepursuant to the Care Everywhere program and may not contain all information available regarding this patient. Last updated 17.[facility] Allergies * Moxifloxacin(Unknown) * Povidone Iodine(Unknown) * Shellfish-Derived Products(Unknown) Medications * Be aware that medications may not be up to date on this document. Alwaysverify current medications with the patient. * amLODIPine (NORVASC) 5 MG tablet(Started 08/29/2016) Take 1 tablet daily * raNITIdine (ZANTAC) 300 MG tablet(Started 05/05/2017) Take 300 mg by mouth * albuterol HFA (VENTOLIN HFA) 108 (90 BASE) MCG/ACT inhaler(Started 05/04/2009) 90 mcg * TRIAMTERENE PO Social History Tobacco Use Types Packs/Day Years [...] Mass Index 33.28 08/24/2017 2:16 PM CDT Procedures * STREP A SCREEN - POINT OF CARE (AMB) STL(Performed 08/24/2017) Performed for Acute upper respiratory infection Results * STREP A SCREEN - POINT OF CARE (AMB) STL (08/24/2017) Strep A Rapid POCT Negative Negative Strep A Internal Control Present Lot # [id number] Expiration Date [id number] Throat ENTIRE THROAT (SURFACE REGION OF NECK) / Unknown 08/24/2017 Liliana Ganonn TECHNICIAN ASSISTANT-WALL COVERING INSTALLER LAB - POINT O F CARE ORDERABLES Care Teams Transit Department Clerk Relationship Specialty Start Date End Date Kenroy Patel MD PCP - General Internal Medicine 08/24/17
--- OUTSIDE RECORDS SUMMARY | 2024-03-31 08:57 | XMS_ITS | Encounter Summary ---
Author Organization [facility] Address [address] [place] [address] Phone Care Team Providers Care Steel Fixer Name Role Phone Yaneli Summers MD Primary Care Provide r Na Zavala AUTISTIC TEACHER Unavailable Alvaro Horton MD PhD Unavailable Charles Pa MD Unavailable Encounter Details Date Type Department Care Team (Late st Contact Info) Description 04/08/2017 Orders Only [facility] ProviderTaylor MD [address] [place] [address] Social History Tobacco Use Types Packs/Day Years Used Date Smoking Tobacco: Former Cigarettes Q uit: 02/24/2002 Comments:Smoking History Pac ks/day: 2 Packs Alcohol Use Standard Drinks/Week Comments Yes 0 (1 standard drink = 0.6 oz pur e alcohol) Comments Unknown Sex and Gender Information Value Date Recorded Sex Assigned at Not on file Legal Sex Female 6:17 PM SQL BI DEVELOPER Gender Identity Not on file Sexual Orientation Not on file documented as of this encounter Plan of Treatment Not on file documented as of this encounter Procedures Procedure Name Priority Date/Time Associated Diagnosis Comments DISCHARGE LABORATORY CUMULATIVE REPORT 04/08/2017 12:00 AM SQL BI DEVELOPER documented in this encounter Results * DISCHARGE LABORATORY CUMULATIVE REPORT (04/08/2017 12:00 AM SQL BI DEVELOPER) Narrative 04/08/2017 12:00 AM SQL BI DEVELOPER Ordered by an unspecified provider. us Historical Provider LAB BLOOD ORDERABLES Susy l Result documented in this encounter Visit Diagnoses Not on filedocumented in this encounter Care Teams Steel Fixer Relationship Specialty Start Date End Date Yaneli Summers MD 2 [facility] [address] [address] PCP - General Family Medicine 06/04/21 Na Zavala, AUTISTIC TEACHER 2 [facility] [address] [address] Registered Nurse Pulmonary Disease 09/02/22 01/25/24 Alvaro Horton MD PhD 6 [place] [address] Radiation Oncologist Radiation Oncology 05/01/23 Charles Pa MD 4 [facility] [address] [address] Consulting Physician Pulmonary Disease 05/01/23 documented as of this encounter
--- OUTSIDE RECORDS SUMMARY | 2024-03-31 08:57 | XMS_ITS | Encounter Summary ---
Author Organization [facility] Address [address] [place] [address] Phone Care Team Providers Care Recovery Assistant Name Role Phone Yaneli Summers MD Primary Care Provide r Na Zavala TAMPER OPERATOR Unavailable [phone] Alvaro Horton MD PhD Unavailable [phone] Charles Pa MD Unavailable Encounter Details Date Type Department Care Team (Late st Contact Info) Description 05/20/2017 Orders Only [facility] ProviderTaylor MD [address] [place] [address] Social History Tobacco Use Types Packs/Day Years Used Date Smoking Tobacco: Former Smokeless Tobacco: Never Comments:Smoking History Pac ks/day: 2 Packs Alcohol Use Standard Drinks/Week Comments Yes 0 (1 standard drink = 0.6 oz pur e alcohol) Comments Unknown Sex and Gender Information Value Date Recorded Sex Assigned at Not on file Legal Sex Female 6:17 PM LENS BLOCK GAUGER Gender Identity Not on file Sexual Orientation Not on file documented as of this encounter Plan of Treatment Not on file documented as of this encounter Procedures Procedure Name Priority Date/Time Associated Diagnosis Comments DISCHARGE LABORATORY CUMULATIVE REPORT 05/20/2017 12:00 AM CDT documented in this encounter Results * DISCHARGE LABORATORY CUMULATIVE REPORT (05/20/2017 12:00 AM CDT) Narrative 05/20/2017 12:00 AM CDT Ordered by an unspecified provider. us Historical Provider LAB BLOOD ORDERABLES Suys l Result documented in this encounter Visit Diagnoses Not on filedocumented in this encounter Care Teams Recovery Assistant Relationship Specialty Start Date End Date Yaneli Summers MD [address] [address] PCP - General Family Medicine 06/04/21 Na Zavala TAMPER OPERATOR [address] [address] Registered Nurse Pulmonary Disease 09/02/22 01/25/24 Alvaro Horton MD PhD [address] [place] [address] Radiation Oncologist Radiation Oncology 05/01/23 Charles Pa MD [address] [address] Consulting Physician Pulmonary Disease 05/01/23 documented as of this encounter
--- OUTSIDE RECORDS SUMMARY | 2024-03-31 08:57 | XMS_ITS | Referral Summary ---
Author Organization [facility] Address [address] [facility] [place] [address] Care Team Providers Care Spinning Frame Fixer Name Role Phone Kenroy Patel MD Primary Care Provider Unavail able Source Comments [facility],non-owned Affiliates and Associated Physician Practices is amultiple site organization consisting of ambulatory clinics and hospital sitesin [place], [place], [place] and [place]. This disclosure is being madepursuant to the Care Everywhere program and may not contain all information available regarding this patient. Last updated 17.[facility] Allergies Active Allergy Reactions Criticality Noted Date [...] 08/24/2017 2:16 PM CDT Plan of Treatment Not on file Care Teams Spinning Frame Fixer Relationship Specialty Start Date End Date Kenroy Patel MD PCP - General Internal Medicine 08/24/17
[2024-03-31 08:58] LABS: Basophils Absolute Auto 0.1 K/mm3 (0.0-0.1); Basophils Percent Auto 0.9 % (0.2-1.2); Eosinophils Absolute Auto 0.4 K/mm3 (0-0.3); Eosinophils Percent Auto 2.9 % (0-4.4); Hematocrit 39.3 % (37.0-47.0); Hemoglobin 12.4 g/dL (12.0-15.0); Immature Granulocyte Percent A 0.8 % (0-0.5); Lymphocytes Absolute Auto 2.56 K/mm3 (0.9-3.2); Lymphocytes Percent Auto 19.4 % (18.3-44.2); Mean Corpuscular HGB Conc 31.6 g/dl (32-36); Mean Corpuscular Volume 91.8 fl (80-100); Mean Platelet Volume 9.5 fl (7.4-10.4); Monocytes Percent Auto 14.8 % (2.6-8.5); Neutrophils Absolute Auto 8.1 K/mm3 (1.3-6.7); Neutrophils Percent Auto 61.2 % (45.5-73.1); Platelet Count Result 332 k/mm3 (150-375); Red Blood Count 4.28 M/mm3 (4.2-5.4); White Blood Count 13.2 K/mm3 (4.5-10.0)
[2024-03-31 11:03] LABS: Alanine Aminotransferase 24 U/L (6-35); Albumin Level 3.8 g/dL (3.5-5.1); Alkaline Phosphatase 73 U/L (38-126); Anion Gap 7 mmol/L (4-12); Aspartate Amino Transferase 24 U/L (14-36); Bilirubin,Total 0.7 mg/dL (0.2-1.3); Blood Urea Nitrogen 17 mg/dL (7-17); Calcium 9.4 mg/dL (8.4-10.2); Carbon Dioxide 31 mmol/L (22-30); Chloride 100 mmol/L (98-107); Estimated Glomerular Filt Rate > 60; Glucose 92 mg/dL (65-110); Potassium 4.1 mmol/L (3.4-5.0); Sodium 138 mmol/L (137-145)
[2024-04-01 09:48] LABS: CA 15-3 5 U/mL (<32)
== END 2024-03-31 08:43 | disposition home or self-care (01) ==
LOC: ANHLAB 08:46
PROVIDERS: Visit Provider Internal Medicine Hematology & Oncology
DX: C50.312 Malignant neoplasm of lower-inner quadrant of left female breast (principal); Z17.0 Estrogen receptor positive status [ER+]
CPT/HCPCS: 36415; 80053; 85025; 86300

== ENCOUNTER 2024-08-02 08:47 | Outpatient (CLI) | payer MEDICARE, SELFPAY ==
[2024-08-02 09:08] LABS: Basophils Absolute Auto 0.1 K/mm3 (0.0-0.1); Eosinophils Absolute Auto 0.3 K/mm3 (0-0.3); Eosinophils Percent Auto 2.1 % (0-4.4); Hematocrit 38.5 % (37.0-47.0); Immature Granulocyte Absolute 0.06 K/mm3 (0.00-0.031); Immature Granulocyte Percent A 0.5 % (0-0.5); Lymphocytes Absolute Auto 1.95 K/mm3 (0.9-3.2); Mean Corpuscular HGB Conc 31.2 g/dl (32-36); Mean Corpuscular Hemoglobin 28.2 pg (26-34); Mean Corpuscular Volume 90.4 fl (80-100); Mean Platelet Volume 9.6 fl (7.4-10.4); Monocytes Absolute Auto 1.3 K/mm3 (0.1-0.6); Monocytes Percent Auto 10.5 % (2.6-8.5); Neutrophils Absolute Auto 8.5 K/mm3 (1.3-6.7); Neutrophils Percent Auto 69.9 % (45.5-73.1); Platelet Count Result 350 k/mm3 (150-375); Red Blood Count 4.26 M/mm3 (4.2-5.4); Red Cell Distribution Width 13.8 % (11.5-14.5); White Blood Count 12.2 K/mm3 (4.5-10.0)
--- OUTSIDE RECORDS SUMMARY | 2024-08-02 09:13 | XMS_ITS | Encounter Summary ---
Author Organization [facility] Address [address] [place] [address] Phone Care Team Providers Care Fluorescent Lighting Model Maker Name Role Phone Yaneli Summers MD Primary Care Provide r Na Zavala DIRECTOR BIOSTATISTICS Unavailable [phone] Alvaro Horton MD PhD Unavailable [phone] Charles Pa MD Unavailable Encounter Details Date Type Department Care Team (Late st Contact Info) Description 04/08/2017 Orders Only [facility] ProviderTaylor MD [address] [place] [address] Social History Tobacco Use Types Packs/Day Years Used Date Smoking Tobacco: Former Cigarettes Q uit: 02/24/2002 Comments:Smoking History Pac ks/day: 2 Packs Alcohol Use Standard Drinks/Week Comments Yes 0 (1 standard drink = 0.6 oz pur e alcohol) Comments Unknown Sex and Gender Information Value Date Recorded Sex Assigned at Not on file Legal Sex Female 6:17 PM GERMINATION WORKER Gender Identity Not on file Sexual Orientation Not on file documented as of this encounter Plan of Treatment Not on file documented as of this encounter Procedures Procedure Name Priority Date/Time Associated Diagnosis Comments DISCHARGE LABORATORY CUMULATIVE REPORT 04/08/2017 12:00 AM GERMINATION WORKER documented in this encounter Results * DISCHARGE LABORATORY CUMULATIVE REPORT (04/08/2017 12:00 AM GERMINATION WORKER) Narrative 04/08/2017 12:00 AM GERMINATION WORKER Ordered by an unspecified provider. us Historical Provider LAB BLOOD ORDERABLES Susy l Result documented in this encounter Visit Diagnoses Not on filedocumented in this encounter Care Teams Fluorescent Lighting Model Maker Relationship Specialty Start Date End Date Yaneli Summers MD [address] [facility] [address] [address] PCP - General Family Medicine 06/04/21 Na Zavala, DIRECTOR BIOSTATISTICS [address] [facility] [address] [address] Registered Nurse Pulmonary Disease 09/02/22 01/25/24 Alvaro Horton MD PhD [address] [place] [address] Radiation Oncologist Radiation Oncology 05/01/23 Charles Pa MD [address] [facility] [address] [address] Consulting Physician Pulmonary Disease 05/01/23 documented as of this encounter
--- OUTSIDE RECORDS SUMMARY | 2024-08-02 09:13 | XMS_ITS | Encounter Summary ---
Author Organization [facility] Address [address] [place] [address] Phone Care Team Providers Care Licensed Psychologist Manager Name Role Phone Yaneli Summers MD Primary Care Provide r aN Zavala SHOPPING CENTRE MANAGER Unavailable [phone] Alvaro Horton MD PhD Unavailable [phone] Charles Pa MD Unavailable Encounter Details Date Type Department Care Team (Late st Contact Info) Description 05/20/2017 Orders Only [facility] ProviderTaylor MD [address] [place] [address] Social History Tobacco Use Types Packs/Day Years Used Date Smoking Tobacco: Former Smokeless Tobacco: Never Comments:Smoking History Pac ks/day: 2 Packs Alcohol Use Standard Drinks/Week Comments Yes 0 (1 standard drink = 0.6 oz pur e alcohol) Comments Unknown Sex and Gender Information Value Date Recorded Sex Assigned at Not on file Legal Sex Female 6:17 PM PRICING STRATEGIST Gender Identity Not on file Sexual Orientation [...] on filedocumented in this encounter Care Teams Licensed Psychologist Manager Relationship Specialty Start Date End Date Yaneli Summers MD [address] [address] PCP - General Family Medicine 06/04/21 Na Zavala SHOPPING CENTRE MANAGER [address] [address] Registered Nurse Pulmonary Disease 09/02/22 01/25/24 Alvaro Horton MD PhD [address] [place] [address] Radiation Oncologist Radiation Oncology 05/01/23 Charles Pa MD [address] [address] Consulting Physician Pulmonary Disease 05/01/23 documented as of this encounter
--- OUTSIDE RECORDS SUMMARY | 2024-08-02 09:13 | XMS_ITS | Encounter Summary ---
Author Organization [facility] Address [address] [place] [address] Care Team Providers Care Commissary Superintendent Name Role Phone Yaneli Summers MD Primary Care Provide r Alvaro Horton MD PhD Unavailable Charles Pa MD Unavailable Encounter Details Date Type Department Care Team (Late st Contact Info) Description 06/22/2024 Results Follow-Up [facility] Primary Care at [address] [address] Yaneli Summers MD [address] [place] [address] CBC with auto differential, Comprehensive metabolic panel, Lipid panel, Additional followed-up results: 4 Social History Tobacco Use Types Packs/Day Years Used Date Smoking Tobacco: Former Cigarettes 2 46 1 966 - 2011 Smokeless Tobacco: Never Comments:Smoking History Pac ks/day: 2 Packs 04/15/2023 currently a nonsmoker. TC [...] making you feel afraid or unsafe? Denies 04/11/2024 Comments No Sex and Gender Information Value Date Recorded Sex Assigned at Not on file Legal Sex Female 6:17 PM ABAP DEVELOPER Gender Identity Not on file Sexual Orientation Not on file documented as of this encounter Plan of Treatment Not on file documented as of this encounter Visit Diagnoses Not on filedocumented in this encounter Care Teams Commissary Superintendent Relationship Specialty Start Date End Date Yaneli Summers MD 2 [facility] [address] [address] PCP - General Family Medicine 06/04/21 Alvaro Horton MD PhD [address] [facility] [place] [address] Radiation Oncologist Radiation Oncology 05/01/23 Charles Pa MD [address] [place] [address] [address] Consulting Physician Pulmonary Disease 05/01/23 documented as of this encounter
--- OUTSIDE RECORDS SUMMARY | 2024-08-02 09:13 | XMS_ITS | Data Portability ---
Author Organization [facility] Blackwood Address [address] [place] [address] Care Team Providers Care Recreation Facility Manager Name Role Phone JAKOB SCHAEFER Artificial Breast Fabricator Assessment Encounter Date Assessment Date Assessment LastModified by Organization Details LastModified Time 01/02/2021 01/02/2021 neurology director exam normal, hyst n past good spirits as always, no complaints had GB removed in last year by Palomo Not available 01/02/2021 11:12:29 01/03/2022 01/03/2022 neurology director exam benign, no new issues good spirits Not available 01/03/2022 14:23:09 01/07/2023 01/07/2023 neurology director exam relatively benign. ( hyst in 1986) will; RX abx for folliculitis Not available 01/07/2023 11:33:14 10/21/2023 10/21/2023 Surgery not scheduled yet. Hoping no chemo/radiation will keep us posted. She has a good team assembled. Told her she could always switch to [place] if wants, radioation/chem o could be here locally if more convenient. Not available 10/21/2023 12:50:30 05/04/2024 05/04/2024 neurology director exam benign, no new issues good spirits good results from biopsy/lumpecto my Not available 05/04/2024 11:29:01 Plan of Treatment Reminders Order Date Submit Date Provider Last Modified By Organization Details Last Modified Time Details Appointments None recorded. Lab None recorded. Referral None recorded. Procedures None recorded. Surgeries None recorded. Imaging None recorded. Medication Orders cephalexin 500 mg capsule 2022 023 [id number], [address] , [place], [place], [id number], 11:32:51 Patient TargetsNo targets recorded. Patient Instructions Encounter Date Encounter Id Patient Instructions Last Modified By Organization Details Last Modified Time 01/07/2023 [id number] A healthy lifestyle: care instructions Not available 01/07/2023 11:33:15 05/04/2024 [id number] A healthy lifestyle: care instructions Not available 05/04/2024 11:16:38 Reason for Referral None Reported. Results Created Date Observation Date Name Description Value Unit Range Abnormal Flag Note LastModifiedBy Organization Detail LastModifiedTime 09/04/19 22 09/03/2021 MAMMO , scree hilary, digit al, bilat eral No observ ation record ed. [facility] [address], [place], [address], 09/03/2021 13:52:40 09/04/19 22 09/03/2021 MAMMO , diagn ostic , unila teral No observ ation record ed. [facility] [address], [place], [address], 09/03/2021 17:41:51 09/04/19 22 09/03/2021 MAMMO , diagn ostic , unila teral No observ ation record ed. [facility] [address], [place], [address], 09/03/2021 17:41:52 09/20/19 23 09/19/2022 MAMMO , scree hilary, digit al, bilat eral No observ ation record ed. [facility] [address], [place], [address], 09/19/2022 12:06:04 09/30/19 24 09/30/2023 MAMMO , diagn ostic , bilat eral, w/ CAD No observ ation record ed. [facility] [address], [place], [address], 10/01/2023 09:43:01 10/02/19 24 10/02/2023 MAMMO , diagn ostic , unila teral No observ ation record ed. [facility] [address], [place], [address], 10/02/2023 17:10:30 10/02/19 24 10/02/2023 US, dawson t, unila teral No observ ation record ed. [facility] [address], [place], [address], 10/02/2023 17:10:57 10/06/19 24 10/06/2023 biops y of dawson vences; gamal austin us, needl e core, using imagi ng david nce (PROC ) No observ ation record ed. [facility] [address], [place], [address], 10/08/2023 08:41:56 10/06/19 24 10/06/2023 MAMMO , scree hilary, digit al, unila teral No observ ation record ed. [facility] [address], [place], [address], 10/08/2023 08:42:48 10/09/19 24 10/06/2023 biops y, dawson t (PROC ) No observ ation record ed. cdarrrn [facility] [address], [place], [address], 10/09/2023 12:02:31 10/13/19 24 10/12/2023 MRI, dawson t, bilat eral, w/o contr ast No observ ation record ed. cdarrrn [facility] [address], [place], [address], 10/13/2023 14:57:50 10/28/19 24 07/31/2023 MAMMO , scree hilary, digit al, bilat eral No observ ation record ed. cdarrrn [facility] [address], [place], [address], 10/28/2023 12:38:52 Result Notes None recorded. Problems Name Problem SNOMED Code Status Onset Date Resolution Date Notes Provider Name and Address Organization Details Recorded Time Menopause present 487915219 Active Jakob Schaefer MD Attn: Savanna gill,[address] [facility], [place], [address], [facility] 6 12:17:11 Problem Notes None recorded. Procedures Surgical History Date Name Laterality Status Provider Name and Address Organization Details Recorded Time 09/30/19 24 Most Recent Mammogram completed Abril Virgen RN [facility] 10/01/2023 09:43:11 12/02/19 15 Date of Last Pap Smear completed Gloria Fox MA [facility] 12/09/2016 09:06:04 02/24/18 87 Hysterectomy completed Abril Virgen RN [facility] 11/01/2014 14:24:34 02/24/18 60 Other completed Abril Virgen RN [facility] 11/01/2014 14:24:34 Imaging Results None recorded. Procedure Notes None recorded. Medical Equipment None Reported. Allergies Allergen ID Allergen Name Allergen Category Reaction Reaction Severity Criticality Documentation Date Start Date Code Code System Note Provider Name and Address Organization Details Recorded Time 06055 Avelox medicatio n Not available Not available Not available 11/01/2014 16795 6 RxNorm Abril Virgen RN [facility], [facility] 5 14:24:34 Medications Name Sig Start Date Stop Date Status Note LastModified by Organization Details LastModified Time amoxicillin 500 mg capsule TAKE 1 CAPSULE BY MOUTH THREE TIMES DAILY 05/04 completed Not Available Not Available Not Available prednisone 10 mg tablet TAKE 2 TABLETS BY MOUTH ONCE A DAY FOR 5 DAYS THEN DECREASE TO 1 TABLET FOR 5 DAYS 10/20 completed Not Available Not Available Not Available doxycycline hyclate 100 mg capsule 01/02 completed Not Available Not Available Not Available azithromyci n 250 mg tablet TAKE 2 TABLETS BY MOUTH FOR 1 DAY THEN TAKE 1 TABLET BY MOUTH DAILY FOR 4 DAYS 05/04 completed Not Available Not Available Not Available ofloxacin 0.3 % eye drops active Not Available Not Available Not Available metoprolol succinate ER 50 mg tablet,exte nded release 24 hr active Not Available Not Available Not Available ranitidine 300 mg tablet 01/02 completed Not Available Not Available Not Available prednisone 20 mg tablet 05/04 completed Not Available Not Available Not Available metoprolol succinate ER 100 mg tablet,exte nded release 24 hr active Not Available Not Available Not Available amlodipine 5 mg tablet active Not Available Not Available Not Available tramadol 50 mg tablet TAKE 1 TABLET BY MOUTH EVERY 6 HOURS NEEDED FOR PAIN 05/04 completed Not Available Not Available Not Available triamterene 37.5 mg-hydrochl orothiazide 25 mg capsule active Not Available Not Available Not Available hydrocortis one acetate 25 mg rectal suppository active Not Available Not Available Not Available ketorolac 0.5 % eye drops active Not Available Not Available Not Available amoxicillin 875 mg tablet TAKE 1 TABLET BY MOUTH THREE TIMES DAILY FOR 7 DAYS 05/04 completed Not Available Not Available Not Available prednisolon e acetate 1 % eye drops,suspe nsion 10/20 completed Not Available Not Available Not Available cephalexin 500 mg capsule TAKE 1 CAPSULE BY MOUTH THREE TIMES DAILY FOR 10 DAYS 10/20 completed Not Available Not Available Not Available triamcinolo ne acetonide 0.1 % topical ointment 01/02 completed Not Available Not Available Not Available losartan 25 mg tablet active Not Available Not Available No t Available omeprazole 20 mg capsule,del ayed release active Not Available Not Available Not Available metoprolol succinate ER 25 mg tablet,exte nded release 24 hr 05/04 completed Not Available Not Available Not Available clobetasol 0.05 % topical ointment APPLY TO HANDS TWICE DAILY WHEN ITCHY AND INFLAMED. AVOID FACE AND SKIN FOLDS active Not Available Not Available No t Available epinephrine 0.3 mg/0.3 mL injection, auto-inject or active Not Available Not Available Not Available albuterol sulfate HFA 90 mcg/actuati on aerosol inhaler active Not Available Not Available Not Available diltiazem 30 mg tablet active Not Available Not Available Not Available methylpredn isolone 16 mg tablet 01/02 completed Not Available Not Available Not Available fluticasone propionate 50 mcg/actuati on nasal spray,suspe nsion active Not Available Not Available Not Available amoxicillin 875 mg-potassiu m clavulanate 125 mg tablet 01/02 completed Not Available Not Available Not Available modafinil 100 mg tablet active Not Available Not Available Not Available diltiazem ER 180 mg tablet,exte nded release 24 hr active Not Available Not Available Not Available Advair HFA 230 mcg-21 mcg/actuati on aerosol inhaler 01/03 completed Not Available Not Available Not Available Symbicort 160 mcg-4.5 mcg/actuati on HFA aerosol inhaler active Not Available Not Available Not Available Eliquis 5 mg tablet active Not Available Not Available No t Available Spiriva Respimat 1.25 mcg/actuati on solution for inhalation active Not Available Not Available N ot Available Paxlovid 300 mg (150 mg x 2)-100 mg tablets in a dose pack TAKE 3 TABLETS TOGETHER (TWO 150 MG NIRMATREL VIR TABLETS AND ONE 100 MG RITONAVIR TABLET) BY MOUTH TWICE DAILY FOR 5 DAYS. 05/04 completed Not Available Not Available Not Available Vitals Date Recorded Body height Body mass index (BMI) Body weight Systolic blood pressure Diastolic blood pressure Provider Name and Address Organization Details Last Updated DateTime 05/04/2024 167.64 cm 32.3 kg/m2 12431.62 g 148 mm[Hg] 71 mm[Hg] Lucita Sanders [place] - [facility] 5 11:08:40 Date Recorded Body height Body mass index (BMI) Body weight Systolic blood pressure Diastolic blood pressure Provider Name and Address Organization Details Last Updated DateTime 10/21/2023 167.64 cm 31.8 kg/m2 32658.13 g 151 mm[Hg] 74 mm[Hg] JENNIE Herrmann [place] - [facility] 4 11:41:13 Date Recorded Body weight Systolic blood pressure Diastolic blood pressure Provider Name and Address Organization Details Last Updated DateTime 01/02/2021 00815.7 g 152 mm[Hg] 74 mm[Hg] Lucita Sanders [facility] 01/02/2021 10:38:17 Date Recorded Body height Body mass index (BMI) Body weight Systolic blood pressure Diastolic blood pressure Provider Name and Address Organization Details Last Updated DateTime 01/03/2022 167.64 cm 31.9 kg/m2 35784.13 g 154 mm[Hg] 76 mm[Hg] Lucita Sanders [facility] 2 14:09:01 Date Recorded Body height Body mass index (BMI) Body weight Systolic blood pressure Diastolic blood pressure Provider Name and Address Organization Details Last Updated DateTime 01/07/2023 167.64 cm 31.3 kg/m2 48490.35 g 134 mm[Hg] 72 mm[Hg] Lucita Sanders [facility] 3 11:16:34 Social History Question Answer Notes LastModified by Organizat ion Details LastModified Time Tobacco Smoking Status Former Smoker Abril Virgen RN [facility], [facility] 11/01/2014 14:24:34 In The 14 Days Before Symptom Onset, Have You Had Close Contact With A Laboratory-confirm ed COVID-19 While That Case Was Ill? No Information n ot available 01/02/2021 In The 14 Days Before Symptom Onset, Have You Had Close Contact With A Person Who Is Under Investigation For COVID-19 While That Person Was Ill? No Information not available 01/02/2021 Have You Been To An Area Known To Be High Risk For COVID-19? No Information not available 01/02/2021 What Was The Date Of Your Most Recent Tobacco Screening? 05/04/2024 Information not available 05/04/2024 How Many Children Do You Have? 0 Information not available 12/01/2014 What Is Your Relationship Status? Information not available 12/01/2014 Has Tobacco Cessation Counseling Been Provided? No Information not available 01/02/2021 How Many Years Have You Smoked Tobacco? 30 [email or web address] Information not available 11/01/2014 Sex: Female Functional Status Question Answer Note LastModified by Organization D etails LastModified Time Do you or have you ever used any other forms of tobacco or nicotine? No Information not available 01/02/2021 Mental Status None recorded. Family History Nothing Reported Notes:no breast ca hx Medical History Condition Response High Blood Pressure Y COPD Y Gynecological History Statement/Question Response Abnormal Pap N Menses Monthly N Date of Last Pap Smear 12/01/2014 Sexual Problems? N Current Control Method Hysterectom y Most Recent Mammogram 09/30/2023 LMP Definite Obstetrics History GPAL:G 0 P 0 0 0 0 Immunizations Vaccine Type Date Status Note Provider Nam e and Address Organization Details Recorded Time COVID-19, mRNA, LNP-S, PF, 30 mcg/0.3 mL dose 1 completed Lucita Marilyn, RMA [place], [place] [facility] 01/03/2022 13:48:37 Influenza, high-dose, trivalent, PF 5 completed Lucita Sanders [place] [facility] 01/03/2022 13:48:37 COVID-19, mRNA, LNP-S, bivalent, PF, 30 mcg/0.3 mL dose 2 completed Lucita Sanders [place] [facility] 01/03/2022 13:48:37 Influenza, high-dose, quadrivalent, PF 1 completed Lucita Sanders [place] [facility] 01/03/2022 13:48:37 COVID-19, mRNA, LNP-S, PF, 30 mcg/0.3 mL dose, quang-sucrose 2 completed Lucita Sanders [place] [facility] 01/03/2022 13:48:37 Influenza, high-dose, quadrivalent, PF 2 completed Lucita Marilyn, [place] [facility] 01/03/2022 13:48:37 Influenza, high-dose, trivalent, PF 7 completed Lucita Sanders [place] [facility] 01/03/2022 13:48:37 zoster live 6 completed Lucita Sanders [place] [facility] 01/03/2022 13:48:37 Influenza, high-dose, trivalent, PF 6 completed Lucita Sanders [place] [facility] 01/03/2022 13:48:37 Influenza, high-dose, quadrivalent, PF 0 completed Lucita Sanders [place] [facility] 01/03/2022 13:48:37 pneumococcal polysaccharide PPV23 1 completed Lucita Sanders [place] [facility] 01/03/2022 13:48:37 COVID-19, mRNA, LNP-S, PF, 30 mcg/0.3 mL dose 1 completed Lucita Sanders [place] [facility] 01/03/2022 13:48:37 Td (adult), 2 Lf tetanus toxoid, preservative free, adsorbed 0 completed Lucita Sanders [place] [facility] 10/21/2023 11:32:01 influenza, unspecified formulation 2 completed Lucita Sanders [place] [facility] 01/03/2022 13:48:37 COVID-19, mRNA, LNP-S, PF, 30 mcg/0.3 mL dose 1 completed Lucita Sanders [place] [facility] 01/03/2022 13:48:37 Influenza, high-dose, trivalent, PF 9 completed Lucita [place] [facility] 01/03/2022 13:48:37 Influenza, adjuvanted, trivalent, PF 8 completed Lucita [place] [facility] 01/03/2022 13:48:37 Influenza, high-dose, quadrivalent, PF 3 completed Lucita [place] [facility] 01/07/2023 11:08:02 COVID-19, mRNA, LNP-S, PF, quang-sucrose, 30 mcg/0.3 mL 3 completed Lucita [place] [facility] 01/07/2023 11:08:02 influenza, unspecified formulation 3 completed Lucita Marilyn, [place] [facility] 01/07/2023 11:08:02 COVID-19, mRNA, LNP-S, PF, quang-sucrose, 30 mcg/0.3 mL 4 completed Lucita Sanders [place] [facility] 05/04/2024 11:09:32 Influenza, high-dose, trivalent, PF 4 completed Lucita Sanders [place] [facility] 05/04/2024 11:09:32 Past Encounters Encounter ID Performer Location Encounter Start Date Encounter Closed Date Diagnosis/Indication Diagnosis SNOMED-CT Code Diagnosis ICD10 Code Diagnosis Note [id number] MD Cole Sotomayor ([place] [address]) [address] [place] [address] 12/01/2014 11:10:13 12/01/2014 12:08:18 Gynecologic examination 58796271 Z01.419 Menopause present 152649 006 N95.1 Screening for malignant neoplasm of breast 807301923 Z12.39 Screening for malignant neoplasm of colon 454953289 Z12.11 [id number] MD Cole Sotomayor ([place] [address]) [address] [place] [address] 12/07/2015 11:09:24 12/07/2015 12:40:26 Gynecologic examination 82824951 Z01.419 Menopause present 170103 006 N95.1 Screening for malignant neoplasm of breast 278397333 Z12.39 Screening for malignant neoplasm of colon 712956588 Z12.11 [id number] MD Cole Sotomayor ([facility]) [address] [place] [address] 12/09/2016 11:43:15 12/11/2016 11:12:10 Body mass index 30+ - obesity 203484626 Z68.32 Gynecologi c examination 85287811 Z01.419 Screening for malignant neoplasm of breast 064180793 Z12.31 Screening for malignant neoplasm of colon 991256330 Z12.11 [id number] MD Cole Sotomayor [address] [place] [address] 12/11/2017 11:12:51 12/15/2017 15:43:56 Screening for malignant neoplasm of colon 292020916 Z12.11 Gynecologi c examination 92686078 Z01.419 Screening for malignant neoplasm of breast 777701946 Z12.31 [id number] MD Cole Sotomayor 14 OB [address] [facility] [facility] [place] [address] 12/15/2018 11:11:08 12/16/2018 11:56:04 Screening for malignant neoplasm of colon 539034438 Z12.11 Gynecologi c examination 13429280 Z01.419 Screening for malignant neoplasm of breast 962415130 Z12.31 [id number] MD Cole Sotomayor 14 OB [address] [facility] [facility] [place] [address] 12/14/2019 11:17:21 12/15/2019 13:15:40 Screening for malignant neoplasm of colon 827690528 Z12.11 Gynecologi c examination 22843680 Z01.419 Menopause present 059042 006 N95.1 [id number] MD Cole Sotomayor 14 OB [address] [facility] [place] [address] 01/02/2021 10:24:24 01/03/2021 06:23:01 Gynecologic examination 98242796 Z01.969 [id number] MD Cole Sotomayor [address] OB [address] [facility] [facility] [place] [address] 01/03/2022 13:37:11 01/04/2022 14:43:47 Gynecologic examination 05253981 Z01.419 Menopause present 268920 006 N95.1 [id number] MD Cole Sotomayor 14 OB [address] [facility] [facility] [place] [address] 01/07/2023 10:46:01 01/08/2023 09:23:45 Obesity 218473815 E66.9 Gynecologi c examination 32776928 Z01.419 Folliculitis 99940685 L7 3.9 [id number] MD Cole Sotomayor [address] OB [address] [facility] [place] [address] 10/21/2023 11:15:54 10/22/2023 09:55:00 Personal history of primary malignant neoplasm of breast 414585370 Z85.3 [id number] MD Cole Sotomayor 14 OB [address] [facility] [facility] [place] [address] 05/04/2024 10:43:06 05/10/2024 10:40:35 Depression screening 020113552 Z13.31 Obesity 731583603 E66.9 Gynecologi c examination 67323263 Z01.419 Health Concerns Section Related Observation LastModified by Organization Detai ls LastModified Time None Recorded Concern Status LastModified by Organization Details LastModified Time None Recorded Advance Directives Directive None Recorded Payers Encounter Date Sequence Insurance Name Policy Number Policy Dai Covered Member ID Dai Member ID Guarantor Name 01/02/2021 1 [facility] (MEDICARE REPLACEMENT/A DVANTAGE - HMO) [id number] Susetta A Delgado [id number] Susetta A Delgado 01/03/2022 1 [facility] (MEDICARE REPLACEMENT/A DVANTAGE - HMO) [id number] Susetta A Delgado [id number] Susetta A Delgado 01/07/2023 1 [facility] (MEDICARE REPLACEMENT/A DVANTAGE - HMO) [id number] Susetta A Delgado [id number] Susetta A Delgado 10/21/2023 1 [facility] (MEDICARE REPLACEMENT/A DVANTAGE - HMO) [id number] Susetta A Delgado [id number] Susetta A Delgado 05/04/2024 1 [facility] (MEDICARE REPLACEMENT/A DVANTAGE - HMO) [id number] Susetta A Delgado [id number] Susetta Carlos Delgado Notes Date Note Type Note Provider Name and Address Organization Details Recorded Time 01/02/2021 text/html Annual Mechanical Facilities Technician Post-MenopausalRepo rted bypatient.Menopausa l Symptoms:no menopausal symptoms; normal vaginal lubrication Vaginal Bleeding:history of menopause having occurred; no history of post menopausal bleeding Urinary Symptoms:no hematuria; no incontinence; no nocturia; no urinary frequency Vulva:no genital lesion; no vulvar atrophy Vagina:normal vaginal discharge; no vaginal atrophy Breast:no breast lump; no nipple discharge; no breast pain Sexual Complaints:no sexual complaints Psychological Symptoms:no depression; no anxietyNotes:st 1997breast biopsy this past summer ( august 2019) Jakob Schaefer MD Attn: Accounting[address] [place], [address], [facility] 01/02/2021 11:13:09 01/03/2022 text/html Annual Mechanical Facilities Technician Post-MenopausalRepo rted bypatient.Menopausa l Symptoms:no menopausal symptoms; normal vaginal lubrication Vaginal Bleeding:history of menopause having occurred; no history of post menopausal bleeding Urinary Symptoms:no hematuria; no incontinence; no nocturia; no urinary frequency Vulva:no genital lesion; no vulvar atrophy Vagina:normal vaginal discharge; no vaginal atrophy Breast:no breast lump; no nipple discharge; no breast pain Sexual Complaints:no sexual complaints Psychological Symptoms:no depression; no anxietyNotes:hyst 1996breast biopsy this past summer ( august 2019) Jakob Schaefer MD Attn: [address]ing[address] [place], [address], [facility] 01/03/2022 14:23:24 01/07/2023 text/html Annual Mechanical Facilities Technician Post-MenopausalRepo rted bypatient.Menopausa l Symptoms:no menopausal symptoms; normal vaginal lubrication Vaginal Bleeding:history of menopause having occurred; no history of post menopausal bleeding Urinary Symptoms:no hematuria; no incontinence; no nocturia; no urinary frequency Vulva:no genital lesion; no vulvar atrophy Vagina:normal vaginal discharge; no vaginal atrophy Breast:no breast lump; no nipple discharge; no breast pain Sexual Complaints:no sexual complaints Psychological Symptoms:no depression; no anxietyNotes:hyst 1996breast biopsy ( august 2019) Jakob Schaefer MD Attn: Accounting[address] [place], [address], [facility] 01/07/2023 11:33:28 10/21/2023 text/html recent breast CA diagnosis reviewed her pathology and plans for surgery today. She has been seeing me for over two decades and wanted my opinion on her plans. Jakob Schaefer MD Attn: [address] [place], [address], [facility] 10/21/2023 12:50:42 05/04/2024 text/html Annual Mechanical Facilities Technician Post-MenopausalRepo rted bypatient.Menopausa l Symptoms:no menopausal symptoms; normal vaginal lubrication Vaginal Bleeding:history of menopause having occurred; no history of post menopausal bleeding Urinary Symptoms:no hematuria; no incontinence; no nocturia; no urinary frequency Vulva:no genital lesion; no vulvar atrophy Vagina:normal vaginal discharge; no vaginal atrophy Breast:no breast lump; no nipple discharge; no breast pain Sexual Complaints:no sexual complaints Psychological Symptoms:no depression; no anxietyNotes:[facility] 1996 [facility] Breast cancer diagnosis last year, had a lumpectomy, didnt need chemo or radiationgood spirits Jakob Schaefer MD Attn: [address] [place], [address], [facility] 05/04/2024 11:29:32 OBGyn Episode No OBEpisode recorded.
--- OUTSIDE RECORDS SUMMARY | 2024-08-02 09:13 | XMS_ITS | Clinical Summary ---
Author Organization [facility] Address [address] [place] [address] Care Team Providers Care Flux Mixer Name Role Phone Yaneli Summers MD Primary Care Provide r Allergies Active Allergy Reactions Criticality Noted Date Comments Moxifloxacin Unknown 10/23/2023 Povidone-Iodine Itching,Unknown Low 10/01/2022 Shellfish Containing Products Anaphylaxis High 10/22 Medications albuterol sulfate HFA 90 mcg/actuation aerosol inhaler Take 2 Puffs by inhalation. 08/22/19 24 Active amLODIPine (NORVASC) 5 mg tablet Take 5 mg by mouth daily. 08/25/19 24 Active budesonide-for moteroL (SYMBICORT) 160-4.5 mcg/actuation HFA Aerosol Inhaler USE 2 INHALATIONS BY MOUTH TWICE DAILY RINSE MOUTH WITH WATER AFTER USE DO NOT SWALLOW 09/24/19 24 Active EPINEPHrine (EPIPEN) 0.3 mg/0.3 mL Auto-Injector Inject 0.3 mg by subcutaneous injection one time only. 12/22/19 23 Active metoprolol succinate (TOPROL XL) 50 mg Extended Release 24 hour tablet Take 100 mg by mouth daily. 10/10/19 24 025 Active triamterene-hy droCHLOROthiaz fidencio (DYAZIDE) 37.5-25 mg capsule Take 1 Capsule by mouth daily. 07/04/19 24 Active tamoxifen (NOLVADEX) 20 mg tablet TAKE 1 TABLET BY MOUTH DAILY 90 Tablet 3 07/21/19 25 Active tamoxifen (NOLVADEX) 20 mg tablet Take 1 Tablet (20 mg) by mouth daily. 90 Tablet 3 01/08/20 24 025 Discontinued Active Problems No known active problems Encounters Date Type Department Care Team Description 07/18/2024 Refill [facility] Oncology and Hematology - [facility] [address] [place] [id number] Daron Saenz MD 07/15/2024 External Device Data [facility] ABSTRACTION Provider, Abstract 07/14/2024 External Device Data [facility] ABSTRACTION Provider, Abstract 07/13/2024 External Device Data [facility]STRACTION Provider, Abstract from Last 3 Months Family History Medical [...] Sign Reading Time Taken Comments Blood Pressure 162/119 04/09/2024 12:33 PM PRINCIPAL SOFTWARE ENGINEER patient takes at home BP and it's been with in normal range Pulse 94 04/09/2024 12:33 PM PRINCIPAL SOFTWARE ENGINEER Temperature 37.1 C (98.7 F) 04/09/2024 12:33 PM PRINCIPAL SOFTWARE ENGINEER Respiratory Rate 16 04/09/2024 12:3 3 PM PRINCIPAL SOFTWARE ENGINEER Oxygen Saturation 91% 04/09/2024 12: 33 PM PRINCIPAL SOFTWARE ENGINEER Inhaled Oxygen Concentration - - Weight 89.7 kg (197 lb 12.8 oz) 12/09/2023 12:58 PM CDT Height 162.6 cm (5' 4) 10/23/2023 2:49 PM CDT Body Mass Index 33.95 10/23/2023 2:49 PM CDT Plan of Treatment Upcoming Encounters Date Type Department Care Team (Late st Contact Info) Description 08/12/2024 11:00 AM CDT Office Visit [facility] Oncology and Hematology - [facility] [address] [place] [phone] Daron Saenz MD [phone] [facility] [employer] [address] [place] [phone] Health Maintenance Due Date Last Done Comments ZOSTER VACCINE (2 of 3) 07/05/2015 05/10/2015 RSV VACCINE (60+ or ) (1 - 1-dose 75+ series) 2021 Lung Cancer Screening 09/03/2023 09/02/2022 , 08/20/2021, 08/14/2020, Additional history exists Medicare [place] Preventative Visit/Annual Wellness Visit 02/25/2024 06/26/2023, 06/25/2022, 06/04/2021, Additional history exists COVID-19 Vaccine (2023-2 5 season) 2024 12/21/2023, 12/16/2021, 05/18/2020, Additional history exists OSTEOPOROSIS SCREENING 06/08/2025 06/08/2020, 2020 DTAP/TDAP/TD VACCINES (3 - T d or Tdap) 09/02/2029 09/03/2019, 05/01/2007 PNEUMOCOCCAL VACCINE 50+ YEARS Completed 1 , 02/28/2015, 12/18/2009 INFLUENZA VACCINE Completed 12/14/2023, , 12/02/2021, Additional history exists Insurance Care Teams Flux Mixer Relationship Specialty Start Date End Date Yaneli Summers MD [address] [place] [address] PCP - General Family Practice 10/23/23
--- OUTSIDE RECORDS SUMMARY | 2024-08-02 09:13 | XMS_ITS | Clinical Summary ---
Author Organization [facility] Address [address] [address] Care Team Providers Care Needle Maker Name Role Phone Kenroy Patel MD Primary Care Provider Unavail able Source Comments [facility],non-owned Affiliates and Associated Physician Practices is amultiple site organization consisting of ambulatory clinics and hospital sitesin [place], [place], [place] and [place]. This disclosure is being madepursuant to the Care Everywhere program and may not contain all information available regarding this patient. Last updated 17.[facility] [employer] Allergies Active Allergy Reactions Criticality Noted Date Comments Moxifloxacin Unknown Povidone Iodine Unknown Shellfish-Derived Products Unknown Medications * Be aware that medications may not be up to date on this document. Alwaysverify current medications with the patient. amLODIPine (NORVASC) 5 MG tablet Take 1 tablet daily 08/29/2016 Active raNITIdine (ZANTAC) 300 MG tablet Take 300 mg by mouth 05/05/2017 Active albuterol HFA (VENTOLIN HFA) 108 (90 BASE) MCG/ACT inhaler 90 mcg 05/04/2009 Act nikki TRIAMTERENE PO Activ e Social History Tobacco Use Types Packs/Day Years Used Date Smoking Tobacco: Former Smokeless Tobacco: Never Comments Unknown Sex and Gender Information Value Date Recorded Sex Assigned at Not on file Legal Sex Female 9:34 AM CDT Gender Identity Not on file Sexual Orientation Not on file Last Filed Vital Signs Vital Sign Reading Time Taken Comments Blood Pressure 140/58 08/24/2017 2:16 PM CDT Pulse 115 08/24/2017 2:16 PM CDT Temperature 36.9 C (98.5 F) 08/24/2017 2:16 PM CDT Respiratory Rate - - Oxygen Saturation 94% 08/24/2017 2:16 PM CDT Inhaled Oxygen Concentration - - Weight 90.7 kg (200 lb) 08/24/2017 2:16 PM CDT Height 165.1 cm (5' 5) 08/24/2017 2:16 PM CDT Body Mass Index [...] COVID-19 VACCINE (1 - 2023- season) 2023 DEPRESSION SCREENING 02/25/2024 MEDICARE AWV CALENDAR YEAR 2024 INFLUENZA VACCINE (Season Ended) 2024 11/25/2016, 12/13/2015, 12/01/2014, Additional history exists HEPATITIS B VACCINE Aged Out No longe r eligible based on patient's age to complete this topic HIB VACCINE Aged Out No longer eligi ble based on patient's age to complete this topic HPV VACCINE Aged Out No longer eligi ble based on patient's age to complete this topic MENINGOCOCCAL (Group B) VACCINE SHARED DECISION-MAKING Aged Out No longer eligible based on patient's age to complete this topic MENINGOCOCCAL GROUPS A/C/Y/W VACCINE Aged Out No longer eligible based on patient's age to complete this topic Insurance [facility] MEDICARE ADV Care Teams Needle Maker Relationship Specialty Start Date End Date Kenroy Patel MD PCP - General Internal Medicine 08/24/17
--- OUTSIDE RECORDS SUMMARY | 2024-08-02 09:14 | XMS_ITS | Referral Summary ---
Author Organization [facility] Address [address] [place] [address] Care Team Providers Care Funeral Sales Manager Name Role Phone Yaneli Summers MD Primary Care Provide r Alvaro Horton MD PhD Unavailable [phone] Charles Pa MD Unavailable Encounters Date Type Department Care Team Description 07/21/2024 9:15 AM CDT Office Visit [place] [facility] at [address] [place] [address] Fe Youssef NP Essential hypertension (Primary Dx); Mild mitral and aortic regurgitation 06/30/2024 8:15 AM CDT Office Visit [facility] Primary Care at [address] [place] [address] Yaneli Lopez MD Encounter for wellness examination (Primary Dx); Essential hypertension; Mixed hyperlipidemia; Renal mass; Invasive ductal carcinoma of left breast (HCC); Malignant neoplasm of lower lobe, left bronchus or lung (HCC); Chronic obstructive pulmonary disease, unspecified COPD type (HCC); RIVER (obstructive sleep apnea); Class 1 obesity due to excess calories with serious comorbidity and body mass index (BMI) of 34.0 to 34.9 in adult; Heel pain, unspecified laterality; Chronic atrial fibrillation (HCC); Lung nodule; Hematuria, unspecified type 06/22/2024 Results Follow-Up [facility] Medical [facility] Primary Care at [address] [place] [phone] Yaneli Lopez MD CBC with auto differential, Comprehensive metabolic panel, Lipid panel, Additional followed-up results: 4 06/22/2024 6:35 AM CDT Lab [facility] [address] [place] [address] Healthcare maintenance 06/04/2024 Telephone [facility] [address] [place] [phone] Nisa Roach MA 06/03/2024 Telephone [place] [facility] at [address] [place] [phone] Rosa Casiano MA 06/03/2024 9:30 AM CDT Office Visit [facility] [address] [place] [address] [address] [place] [phone] Saurav Morrison MD RIVER (obstructive sleep apnea) (Primary Dx); Hypersomnia with sleep apnea; Obesity (BMI 30.0-34.9) 05/13/2024 Telephone [facility] Primary Care at [address] [place] [phone] Yaneli Lopez MD Additional Services Or Orders from Last 3 Months Allergies Active Allergy Reactions Criticality Noted Date Comments Povidone-Iodine Itching Low 10/01/2022 Iodine Rash Medium topical Moxifloxacin Shellfish Containing Products Anaphylaxis High Shellfish Derived Anaphylaxis High Medications fexofenadine (SUKHI) 180 mg tablet Take 1 tablet (180 mg total) by mouth daily Active fluticasone propionate (FLONASE) 50 mcg/actuation nasal spray Administer 2 sprays into each nostril daily 48 g 11 02/19/20 23 Active tamoxifen (NOLVADEX) 20 mg tablet Take 1 tablet (20 mg total) by mouth daily 01/08/20 24 Active albuterol HFA (PROVENTIL HFA,VENTOLIN HFA,PROAIR HFA) 90 mcg/actuation inhalerIndicatio ns:Chronic obstructive pulmonary disease, unspecified COPD type (HCC) INHALE 2 INHALATIONS BY MOUTH EVERY 4 TO 6 HOURS NEEDED FOR WHEEZING 25.5 g 02/09/20 24 Active triamterene-hydr oCHLOROthiazide 37.5-25 mg per tablet/capsule TAKE 1 CAPSULE BY MOUTH DAILY 90 capsule 1 04/06/19 25 Active dilTIAZem (CARDIZEM) 30 mg tabletIndication s:Supraventricul ar Arrhythmias Take 1 tablet (30 mg total) by mouth 3 (three) times a day as needed (for breakthrough AF RVR with ventricular rate > 140 BPM) 30 tablet 04/16/19 25 Active modafiniL (PROVIGIL) 100 mg tablet Take 1 tablet (100 mg total) by mouth daily 30 tablet 06/04/19 25 025 Active Additional Information Patient not taking.Reported on 07/21/2024 Trelegy Ellipta 100-62.5-25 mcg inhalerIndicatio ns:Chronic obstructive pulmonary disease, unspecified COPD type ([facility]) USE 1 INHALATION BY MOUTH DAILY 180 each 3 06/22/19 25 Active apixaban (ELIQUIS) 5 mg tabletIndication s:atrial fibrillation Take 1 tablet (5 mg total) by mouth 2 (two) times a day 180 tablet 07/22/19 026 Active diltiazem LA (CARDIZEM LA) 180 mg 24 hr tablet Take 1 tablet (180 mg total) by mouth daily 90 tablet 07/22/19 026 Active metoprolol XL (TOPROL-XL) 100 mg 24 hr tablet Take 1 tablet (100 mg total) by mouth daily 90 tablet 07/22/19 25 026 Active metoprolol XL (TOPROL-XL) 100 mg 24 hr tablet Take 1 tablet (100 mg total) by mouth daily 90 tablet 03/09/19 25 025 Discontin ued(Reord er) diltiazem LA (CARDIZEM LA) 180 mg 24 hr tablet Take 1 tablet (180 mg total) by mouth daily 30 tablet 04/19/19 025 Discontin ued(Reord er) apixaban (ELIQUIS) 5 mg tabletIndication s:atrial fibrillation Take 1 tablet (5 mg total) by mouth 2 (two) times a day 60 tablet 11 06/22/19 25 025 Discontin ued(Reord er) Active Problems Problem Noted Date Diagnosed Date Chronic atrial fibrillation 06/30/2024 Assessment & Plan (06/30/2024 9:11 AM CDT): Lung nodule 06/30/2024 Assessment & Plan (06/30/2024 9:11 AM CDT): Cont following with pulmonary for monitoring Mild mitral and aortic regurgitation 01/02/2024 Invasive ductal carcinoma of left breast 024 Assessment & Plan (06/30/2024 9:11 AM CDT): Cont following with breast surgeon S/p breast lumpectomy Currently on tamoxifen Assessment & Plan (11/05/2023 10:23 AM CDT): [...] daily F/u in 2 weeks for monitoring Hepatic steatosis 03/04/2023 Assessment & Plan (03/04/2023 9:41 AM SANITATION WORKER HOSING MACHINERY): We have discussed the findings on the MRI with the patient. We have discussed the hepatic steatosis is most likely driven from obesity. With dietary modifications and weight loss this can improve. We have discussed however if not it can progress to cirrhosis and hepatocellular carcinoma. Renal mass 03/04/2023 Assessment & Plan (06/30/2024 9:11 AM CDT): She is following with urology for management Assessment & Plan (06/26/2023 8:32 AM CDT): She is following with urology for management She is going to get another ultrasound Assessment & Plan (03/04/2023 9:42 AM SANITATION WORKER HOSING MACHINERY): The splenic lesion seen on ultrasound was not visualized on the MRI. However there was 2 lesions identified within the kidney, 1 favored to be a cystic lesion while the other 1 favor to be a renal carcinoma. I will send her to urology for further management. She is in understanding. LUQ abdominal pain 12/30/2022 Assessment & Plan (01/30/2023 12:02 PM SANITATION WORKER HOSING MACHINERY): We have discussed that splenic cyst can [...] discussions. Assessment & Plan (12/30/2022 9:55 AM SANITATION WORKER HOSING MACHINERY): New concern Chronic Not at goal Possible [...] for wellness examination 06/04/2021 Assessment & Plan (06/30/2024 9:11 AM CDT): Labs reviewed Colonoscopy up to date Pap smear: follows with propagator Mammo: Managed by specialist Lung cancer screening: follows with pulmonary F/u in 1 year for annual Assessment & Plan (06/25/2023 12:49 PM CDT): Labs reviewed Colonoscopy up to date Pap smear: follows with propagator Mammo: has an appointment set up, Goes to [facility] Lung cancer screening: due in July, follows with pulmonary F/u in 1 year for annual Assessment & Plan (06/25/2022 8:33 AM CDT): Labs reviewed wnl Colonoscopy due in 2022, order placed for november Pap smear: follows with propagator Mammo: has an appointment set up, Goes to [facility] Lung cancer screening: due in July, follows with pulmonary F/u in 1 year for annual Assessment & Plan (06/04/2021 11:45 AM CDT): Labs reviewed wnl Colonoscopy due in 2022 Pap smear: follows with propagator Mammo: has an appointment set up F/u [...] (11/10/2017): Added automatically from request for surgery [id number] Hx of colonic polyps 11/10/2017 Overview (11/10/2017): Added automatically from request for surgery [id number] Non-rheumatic tricuspid valve insufficiency 03/28 Chronic obstructive pulmonary disease 01/20/2017 Assessment & Plan (06/30/2024 9:11 AM CDT): Stable Continue following with pulmonary Continue with albuterol prn and continue with Trelegy Assessment & Plan (08/22/2023 9:07 AM CDT): [...] (obstructive sleep apnea) 10/09/2016 Assessment & Plan (06/30/2024 9:11 AM CDT): Stable Continue with cpap machine Assessment & Plan (06/25/2023 12:50 PM CDT): Stable Continue with cpap machine Assessment & Plan (06/23/2022 12:14 PM CDT): Stable Continue with cpap machine Assessment & Plan (06/04/2021 11:45 AM CDT): Stable Continue with cpap machine Panlobular emphysema 10/09/2016 Mixed hyperlipidemia 10/09/2016 Assessment & Plan (06/30/2024 9:11 AM CDT): Stable / clinically quiescent. Will continue to monitor. Lipid panel reviewed Assessment & Plan (06/25/2023 12:49 PM CDT): Stable / clinically quiescent. Will continue to monitor. Lipid panel reviewed Assessment & Plan (06/23/2022 12:13 PM CDT): Stable / clinically quiescent. Will continue to monitor. Lipid panel wnl Assessment & Plan (06/04/2021 11:47 AM CDT): Stable / clinically quiescent. Will continue to monitor. Lipid panel wnl Essential hypertension 10/09/2016 Assessment & Plan (06/30/2024 9:11 AM CDT): Bp in the office today BP Readings from Last 1 Encounters: 06/30/24 122/70 Continue current regimen of amlodipine 5mg daily and triamterene hctz 37.5 and 25mg daily Recommend DASH diet, heart-healthy lifestyle, exercise. Discussed the risks of hypertension. F/u in 6 months Assessment & Plan (06/26/2023 8:22 AM CDT): Bp in the office today BP Readings from Last 1 Encounters: 06/26/23 130/80 Continue current regimen of amlodipine 5mg daily and triamterene hctz 37.5 and 25mg daily Recommend DASH diet, heart-healthy lifestyle, exercise. Discussed the risks of hypertension. F/u in 6 months Assessment & Plan (12/30/2022 9:26 AM SANITATION WORKER HOSING MACHINERY): Bp in the office today BP Readings [...] F/u in 6 months Thyroid nodule 10/09/2016 Overview (06/29/2024): Stable for 5 years on US No further US needed Assessment & Plan (06/25/2023 12:49 PM CDT): [...] adult 03/22/2015 Overview (05/31/2016): Obesity (BMI 30.0-34.9) Assessment & Plan (06/30/2024 9:11 AM CDT): Resolved Problems Problem Noted Date Diagnosed Date [...] (09/09/2019): Added automatically from request for surgery [id number] Nonrheumatic aortic valve insufficiency 09/01/2019 11/23/2019 Bronchitis 12/01/2017 03/17/2018 Family hx of colon cancer 11/10/2017 Overview (11/10/2017): Added automatically from request for surgery [id number] Dysphagia 11/10/2017 11/09/2018 Overview (11/10/2017): Added automatically from request for surgery [id number] Nonrheumatic aortic valve insufficiency 04/22/2017 11/23/2019 Hypertension [...] 10/10/19 17 Overview (05/31/2016): BENIGN HYPERTENSION Immunizations Immunization Administration Dates Next Due COVID-19 mRNA ([employer]) 0.3 m L (30 mcg) vaccine (12 years and up) 12/21/2023 Influenza, Quadrivalent, Hig h Dose, Preservative Free, Intrr 12/08/2022,12/02/2021,12/04/2020,11/22 Influenza, Split 01/02/2011 Influenza, Trivalent, Adjuva nted, Intramuscular 11/21/2017 Influenza, Trivalent, High D ose, Split, Preservative Free, Intramuscular 12/14/2023,11/09/2018,11/22/2017,12/02,12/12/2015,11/30/2014 Influenza, Trivalent, IM (MDV) 12/09/2012,2011,11/25/2007 Influenza, Unspecified 12/12/2022,12/16/2021 Pfizer SARS-CoV-2 Monovalent Vaccination (12+ Yrs) PURPLE 05/18/2020,04/20/2020 Pfizer Sars-Cov-2 Bivalent V accination (12+ YRS) 12/16/2021 Pneumococcal Conjugate PCV 13 02/28/2015 Pneumococcal Polysaccharide PPV23 12/04/2020, Td, adsorbed 09/03/2019 Tdap 05/01/2007 ZOSTER LIVE 05/10/2015 Social History Tobacco Use Types Packs/Day Years Used Date Smoking Tobacco: Former Cigarettes 2 46 1 966 - 2012 Passive Smoke Exposure: Past Smokeless Tobacco: Never Tobacco Cessation:Counseling Given: Not [...] points, staff should administer the PHQ-9) 0 06/30/2024 Personal Safety Answer Date Recorded Have you ever been in or are you currently in a harmful physical or emotional relationship or is someone making you feel afraid or unsafe? Denies 04/11/2024 Comments No Sex and Gender Information Value Date Recorded Sex Assigned at Not on file Legal Sex Female 6:17 PM SANITATION WORKER HOSING MACHINERY Gender Identity Not on file Sexual Orientation Not on file Last Filed Vital Signs Vital Sign Reading Time Taken Comments Blood Pressure 157/76 07/21/2024 9:42 AM CDT Pulse 85 07/21/2024 9:42 AM CDT Temperature 36.9 C (98.4 F) 06/30/2024 8:15 AM CDT Respiratory Rate 18 07/21/2024 9:42 AM CDT Oxygen Saturation 99% 06/30/2024 8:15 AM CDT Inhaled Oxygen Concentration - - Weight 90.7 kg (200 lb) 07/21/2024 9:42 AM CDT Height 162.6 cm (5' 4) 07/21/2024 9:42 AM CDT Body Mass Index 34.33 07/21/2024 9:42 AM CDT Plan of Treatment Not on file Procedures Procedure Name Priority Date/Time Associated Diagnosis Comments POCT URINALYSIS DIPSTICK Routine 06/30/2024 9:08 AM CDT Hematuria, unspecified type EGFR Routine 06/22/2024 6:41 AM CDT Healthcare maintenance DIFFERENTIAL AUTO Routine 06/22/2024 6:4 1 AM CDT Healthcare maintenance THYROID FUNCTION CASCADE Routine 06/22/2024 6:41 AM CDT Healthcare maintenance HEMOGLOBIN A1C Routine 06/22/2024 6:41 AM CDT Healthcare maintenance LIPID PANEL Routine 06/22/2024 6:41 AM CDT Healthcare maintenance COMPREHENSIVE METABOLIC PANEL Routine 06/22/2024 6:41 AM CDT Healthcare maintenance CBC WITH AUTO DIFFERENTIAL Routine 06/22/2024 6:41 AM CDT Healthcare maintenance CT CHEST WO CONTRAST F/U LUNG SCREEN PROTOCOL Schedule Routine, Read Routine (OP Routine) 01/08/2024 9:08 AM [employer]ITATION WORKER [employer]ING MACHINERY Pulmonary nodule COLONOSCOPY 12/26/2022 7:34 AM CDT DEXA AXIAL SKELETON BONE DENSITY 1 OR MORE SITES Schedule Routine, Read Routine (OP Routine) 06/08/2020 9:51 AM CDT Other specified disorders of bone density and structure, multiple sites SCREENING MAMMOGRAM BILATERAL W JUAN C Schedule Routine, Read Routine (OP Routine) 01/11/2019 10:22 AM SANITATION WORKER HOSING MACHINERY Encounter for screening mammogram for malignant neoplasm of breast HEPATITIS C SCREENING Routine 03/27/2016 from Last 3 Months or Most Recently Relevant to Health Maintenance Results * POCT urinalysis dipstick (06/30/2024 9:08 AM CDT) Color, Urine, POC Light Yellow Clarity, ur, POC Clear Clear Glucose, ur, POC Negative Negative Bilirubin, ur, POC Negative Negative Ketones, ur, POC Negative Negative Specific [place], POC 1.010 1.003 - 1.030 Blood, ur, POC Negative Negative pH, ur, POC 7.0 5.0 - 8.0 Protein, ur, POC Negative Negative Urobilinogen, urine, POC 0.2 0.2 - 1.0 mg/dL Nitrite, ur, POC Negative Negative Leukocytes, ur, POC Negative Negative Lot Number [id number] Urine 06/30/2024 9:08 AM CDT Yaneli Summers MD POINT OF CARE TEST OR DERABLES Final Result * eGFR (06/22/2024 6:41 AM CDT) eGFR 78 >=60 mL/min/1. 73 m2 Comment: Interpretive Data Reference Interval Normal >/= 90 mL/min/1.73m2 Mildly decreased* 60 - 89 mL/min/1.73m2 Mildly to moderately decreased 45 - 59 mL/min/1.73m2 Moderately to severely decreased 30 - 44 mL/min/1.73m2 Severely decreased 15 - 29 mL/min/1.73m2 Kidney Failure < 15 mL/min/1.73m2 *Relative to young adult level Estimated glomerular filtration rate is determined by the 2020 CKD-EPI equation recommended by the National Kidney Foundation (A Unifying Approach to GFR Estimation: Recommendations of the NKF-ASK Task Force on Reassessing the Inclusion of Race in Diagnosing Kidney Disease, ARETHASLatonya 2020). The CKD-EPI equation should not be used for patients with unstable renal function and has not been validated in children and those over 70. Current interpretive data was last reviewed 2020. Blood 06/22/2024 6:41 AM CDT 06/22/2024 6:51 AM CDT us Yaneli Summers MD LAB BLOOD ORDERABLES Final Result [facility] ([place] 1 [facility] Department [place] [address] * (ABNORMAL) Differential, auto (06/22/2024 6:41 AM CDT) Neutrophil abs 7.56(H) 1.50 - 6.50 K/cumm Imm gran abs 0.05 0.00 - 0.10 K/cumm [facility] ([place]) Lymphocyte abs 2.35 0.80 - 3.30 K/cumm [facility] ([place]) Monocyte abs 1.17(H) 0.20 - 0.80 K/cumm [facility] ([place]) Eosinophil abs 0.33 0.00 - 0.50 K/cumm [facility] ([place]) Basophil abs 0.16(H) 0.00 - 0.10 K/cumm [facility] ([place]) Neutrophil pct 65.1 % [facility] ([place]) Comment: Interpretive Data Percent cell count reference ranges are not reported, since discordance with absolute values may lead to misinterpretation of CBC data. Current Interpretive Data was last revised on 2017. Imm gran pct 0.4 % [facility] ([place]) Comment: Interpretive Data Percent cell count reference ranges are not reported, since discordance with absolute values may lead to misinterpretation of CBC data. Current Interpretive Data was last revised on 2017. Lymphocyte pct 20.2 % [facility] ([place]) Comment: Interpretive Data Percent cell count reference ranges are not reported, since discordance with absolute values may lead to misinterpretation of CBC data. Current Interpretive Data was last revised on 2017. Monocyte pct 10.1 % [facility] ([place]) Comment: Interpretive Data Percent cell count reference ranges are not reported, since discordance with absolute values may lead to misinterpretation of CBC data. Current Interpretive Data was last revised on 2017. Eosinophil pct 2.8 % [facility] ([place]) Comment: Interpretive Data Percent cell count reference ranges are not reported, since discordance with absolute values may lead to misinterpretation of CBC data. Current Interpretive Data was last revised on 2017. Basophil pct 1.4 % [facility] ([place]) Comment: Interpretive Data Percent cell count reference ranges are not reported, since discordance with absolute values may lead to misinterpretation of CBC data. Current Interpretive Data was last revised on 2017. Blood 06/22/2024 6:41 AM CDT 06/22/2024 6:51 AM CDT Yaneli Summers MD LAB BLOOD ORDERABLES Final Result Performing Organization Address City/[facility]/ZIP Co de Phone Number [facility] ([place]) [address] [facility] [place] [address] * Thyroid Function [place] (06/22/2024 6:41 AM CDT) Pathologist [facility] TSH 3.81 0.30 - 4.20 mcIUnit/mL Blood 06/22/2024 6:41 AM CDT 06/22/2024 6:51 AM CDT Narrative [facility] ([place]) - 06/22/2024 7:25 AM CDT Fasting Yaneli Summers MD LAB BLOOD ORDERABLES Final Result [facility] ([place]) 1 [facility] [place] [address] * (ABNORMAL) CBC with auto differential (06/22/2024 6:41 AM CDT) WBC 11.62(H) 3.80 - 9.90 K/cumm Hgb 12.1 11.9 - 15.5 g/dL [facility] ([place]) Hct 39.1 35.6 - 45.5 % [facility] ([place]) Plt 356 150 - 400 K/cumm [facility] ([place]) MPV 9.4 9.1 - 12.3 fL [facility] ([place]) RBC 4.27 3.90 - 5.20 M/cumm [facility] ([place]) MCV 91.6 81.3 - 96.4 fL [facility] ([place]) MCH 28.3 27.1 - 33.3 pg [facility] ([place]) MCHC 30.9(L) 32.3 - 35.7 g/dL [facility] ([place]) RDW CV 13.8 11.1 - 14.9 % [facility] ([place]) RDW SD 46.6 35.7 - 48.1 fL [facility] ([place]) NRBC abs 0.00 0.00 - 0.01 K/cumm [facility] ([place]) Blood 06/22/2024 6:41 AM CDT 06/22/2024 6:51 AM CDT Narrative [facility] ([place]) - 06/22/2024 6:56 AM CDT Fasting us Yaneli Summers MD LAB BLOOD ORDERABLES Final Result [facility] ([place] 1 [facility] Department [place] [address] * Hemoglobin A1c (06/22/2024 6:41 AM CDT) Pathologist [facility] Hgb A1C 5.4 4.0 - 5.6 % Estimated Average Glucose 108 mg/dL [facility] ([place]) Comment: The ADA recommends reporting an estimated Average Glucose (eAG) with all Hemoglobin A1c results using the equation derived from a study of 507 normal and diabetic adults. Minority populations were underrepresented and children were not included. (Diabetes Care 31:2490-9631, 2008). The eAG is not equivalent to a fasting glucose. Blood 06/22/2024 6:41 AM CDT 06/22/2024 6:51 AM CDT Narrative [facility] ([place]) - 06/22/2024 7:10 AM CDT Fasting Yaneli Summers MD LAB BLOOD ORDERABLES Final Result [facility] ([place]) 1 [facility] Department [place] [address] * Lipid panel (06/22/2024 6:41 AM CDT) Cholesterol 150 30 - 199 mg/dL Comment: Interpretive Data Ages < or = 19 years Acceptable: <170 mg/dL Borderline high: 170-199 mg/dL High: >or= 200 mg/dL Ages > or = 20 years Desirable: <200 mg/dL Borderline high: 200-239 mg/dL High: >or= 240 mg/dL Literature References: 1. Expert Panel on Integrated Guidelines for Cardiovascular Health and Risk Reduction in Children and Adolescents. Pediatrics 2011;128:S213 2. NCEP Expert Panel. Circulation 2004;110:227 Current Interpretive Data was last revised on 2017. Triglycerides 124 <=149 mg/dL [facility] ([place]) Comment: Interpretive Data Ages < or = 9 years Acceptable: <75 mg/dL Borderline high: 75-99 mg/dL High: >or= 100 mg/dL Ages 10 to 20 years Acceptable: <90 mg/dL Borderline high: 90-129 mg/dL High: >or= 130 mg/dL Ages > or = 20 years Desirable: <150 mg/dL Borderline high: 150-199 mg/dL High: 200-499 mg/dL Very high: >or= 499 mg/dL Literature References: 1. Expert Panel on Integrated Guidelines for Cardiovascular Health and Risk Reduction in Children and Adolescents. Pediatrics 2011;128:S213 2. NCEP Expert Panel. Circulation 2004;110:227 Current Interpretive Data was last revised on 2017. HDL 58 >=40 mg/dL [facility] [place]) Comment: Interpretive Data Ages < or = 19 years Acceptable: >45 mg/dL Borderline low: 40-45 mg/dL Low: <40 mg/dL Ages > or = 20 years Desirable: >or= 60 mg/dL Low: <40 mg/dL Literature References: 1. Expert Panel on Integrated Guidelines for Cardiovascular Health and Risk Reduction in Children and Adolescents. Pediatrics 2011;128:S213 2. NCEP Expert Panel. Circulation 2004;110:227 Current Interpretive Data was last revised on 2017. LDL, calculated 70 <=129 mg/dL [facility] ([place]) Comment: Interpretive Data Ages < or = 19 years Acceptable: <110 mg/dL Borderline high: 110-129 mg/dL High: >or= 130 mg/dL Ages > or = 20 years Optimal: <100 mg/dL Near optimal: 100-129 mg/dL Borderline high: 130-159 mg/dL High: >160 mg/dL Calculated using the Matt LDL-C estimating equation. This equation was implemented on 2023. Prior to this date LDL-C was estimated using the Friedewald equation. Literature References: 1. Expert Panel on Integrated Guidelines for Cardiovascular Health and Risk Reduction in Children and Adolescents. Pediatrics 2011;128:S213 2. NCEP Expert Panel. Circulation 2004;110:227 3. Matt M et al. ELVIS Cardiol. 2019June 24;5(5):540-548. doi: 10.1001/jamacardio.2020.0013 Current Interpretive Data was last revised on 2023. Non-HDL Cholesterol 92 mg/dL [facility] ([place]) Comment: Interpretive Data Ages < or = 19 years Acceptable: <120 mg/dL Borderline high: 120-144 mg/dL High: >145 mg/dL Ages > or = 20 years When triglycerides are >200 mg/dL, Non-HDL cholesterol is a secondary target of therapy with treatment goals that are 30 mg/dL greater than the LDL cholesterol target. Literature References: 1. Expert Panel on Integrated Guidelines for Cardiovascular Health and Risk Reduction in Children and Adolescents. Pediatrics 2011;128:S213 2. NCEP Expert Panel. Circulation 2004;110:227 Current Interpretive Data was last revised on 2017. Chol/HDL ratio 3 [facility] ([place]) Blood 06/22/2024 6:41 AM CDT 06/22/2024 6:51 AM CDT Narrative [facility] ([place]) - 06/22/2024 7:17 AM CDT Fasting us Yaneli Summers MD LAB BLOOD ORDERABLES Final Result [facility] ([place]) 1 [facility] Department [place] [address] * Comprehensive metabolic panel (06/22/2024 6:41 AM CDT) Sodium 141 135 - 145 mmol/L Potassium, pl 4.4 3.3 - 4.9 mmol/L [facility] ([place]) Chloride 102 97 - 110 mmol/L [facility] ([place]) CO2 29 22 - 32 mmol/L [facility] ([place]) Anion gap 10 2 - 15 mmol/L [facility] ([place]) BUN 16 6 - 25 mg/dL [facility] Creatinine 0.78 0.60 - 1.10 mg/dL [facility] Glucose 110 70 - 199 mg/dL [facility] Comment: Interpretive Data Fasting glucose >/= 126 mg/dl is diagnostic for diabetes. Fasting is defined as no caloric intake for at least 8 hours. Fasting glucose between 100 mg/dl to 125 mg/dl is diagnostic of prediabetes. In a patient with classic symptoms of hyperglycemia or hyperglycemic crisis, a random glucose >/= 200 mg/dl is diagnostic for diabetes. In the absence of unequivocal hyperglycemia, results should be confirmed by repeat testing. The classification and Diagnosis of Diabetes Diabetes Care 202; 46: S19-S40. Current interpretive data was last revised 2022. Calcium 9.4 8.5 - 10.3 mg/dL [facility] Bilirubin, total 0.4 0.1 - 1.2 mg/dL [facility]) Protein, pl 7.2 6.5 - 8.5 g/dL [facility] Albumin 3.8 3.5 - 5.0 g/dL [facility] Alk phos 64 40 - 130 Units/L [facility] ALT 10 7 - 45 Units/L [facility] AST 15 10 - 45 Units/L [facility] ([facility]) Blood 06/22/2024 6:41 AM CDT 06/22/2024 6:51 AM CDT Narrative [facility] ([facility]) - 06/22/2024 7:17 AM CDT Fasting Yaneli Summers MD LAB BLOOD ORDERABLES Final Result [facility] ([facility]) 1 [facility] Department [place] [address] * CT Chest WO Contrast F/U Lung Screen Protocol (01/08/2024 9:08 AM [employer]IT[employer] WORK[employer]ACH[employer]) Anatomical Region Laterality Modality Chest N/A Computed Tomogra phy 01/13/2024 9:19 AM [employer] Narrative 01/13/2024 9:36 AM [employer] EXAM DESCRIPTION: CT CHEST WO CONTRAST F/U LUNG SCREEN PROTOCOL REASON FOR STUDY: Screening CT of the chest in a former smoker with a 92 pack year smoking history. Additional history: Category [...] major fissure (101). Stable 4 mm pleural right lower lobe nodule (250). Right lower lobe granuloma. Stable 5 mm posterior pleural left upper lobe nodule (52). Stable 4 mm left upper lobe nodule (104). Stable 5 mm left lower lobe nodule (186). Grossly stable 10 x 7 mm left lower lobe nodule (205). OTHER: No consolidation, pulmonary edema, pleural effusion or pneumothorax. No mediastinal or hilar lymphadenopathy. The heart is normal in size with significant coronary calcification. A trace pericardial effusion is seen. 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 Prominent axillary lymph nodes are noted. No chest [...] Xiang Carrizales M.D. AG: JESÚS Report ID: [id number] Reading Location: [id number] Procedure Note Xiang Carrizales MD - 01/13/2024 [...] Electronically signed by Xiang Carrizales M.D. AG: AG Report ID: [id number] Reading Location: [id number] Charles Pa MD IMG CT PROCEDURES Final Result * COLONOSCOPY (12/26/2022 7:34 AM CDT) Anatomical Region Laterality Modality Other Narrative Procedure Note Yogesh East MD - 12/26/2022 7:34 AM CDT [facility] Patient Name: Blanca Delgado Procedure Date: 12/26/2022 7:34 AM Date of : 1945 Admit Type: Outpatient Age: 77 Gender: Female Attending MD: Yogesh East M.D. Room: [facility] ENDOSCOPY ROOM 1 Note Status: [...] scope was passed under direct vision. TheColonoscope [id number] was introduced through the anus and advanced [...] 7:34 AM Procedure Code(s): --- Professional --- 39264, Colonoscopy, flexible; with biopsy, single or multiple --- Technical --- 84723, Colonoscopy, flexible; with biopsy, single or multiple Diagnosis Code(s): --- Professional --- Z80.0, Family history of malignant neoplasm of digestive organs D12.2, Benign neoplasm of ascending colon K64.9, Unspecified hemorrhoids --- Technical --- Z80.0, Family history of malignant neoplasm of digestive organs D12.2, Benign neoplasm of ascending colon K64.9, Unspecified hemorrhoids CPT copyright 2020 [employer]. All rights reserved. The codes documented in this report are preliminary and upon edger automatic reviewmay be revised to meet current compliance requirements. Recognized by the [employer] for promoting quality in endoscopy Yogesh East MD ENDOSCOPY PROCEDURES Final Re [...] long-term steroid therapy. Electronically signed by: Keyla Jacobsno MD Narrative 06/08/2020 9:55 AM CDT COMPLETION DATE: 06/08/2020 10:00 AM ORDERING HEALTHCARE PROVIDER: JUANA PATEL STUDY DESCRIPTION: DEXA AXIAL SKELETON BONE DENSITY 1 OR MORE SITES CLINICAL INDICATIONS: Postmenopausal female here for osteoporosis screening. COMPARISON: None TECHNIQUE: Dual x-ray absorptiometry (DEXA) was performed using [facility] [employer] system. GENERAL GUIDELINES: According to WHO guidelines, [...] Has an evaluable hip for DXA study. Procedure Note Keyla Jacobson MD - 06/08/2020 COMPLETION DATE: 06/08/2020 10:00 AM ORDERING HEALTHCARE PROVIDER: JUANA PATEL STUDY DESCRIPTION: DEXA AXIAL SKELETON BONE DENSITY 1 OR MORE SITES CLINICAL INDICATIONS: Postmenopausal female here for osteoporosis screening. COMPARISON: None TECHNIQUE: Dual x-ray absorptiometry (DEXA) was performed using [employer] system. GENERAL GUIDELINES: According to WHO guidelines, [...] therapy. Electronically signed by: Keyla Jacobson MD Result [facility] Juana Patel MD IMG DXA PROCEDURES Final Resul t * (ABNORMAL) Screening Mammogram Bilateral W Juan C (01/11/2019 10:22 AM [employer]) Anatomical Region Laterality Modality Breast Bilateral Mammography 01/11/2019 10:5 1 AM [employer] Impressions 01/11/2019 11:26 AM [employer] 1. 9 MM NODULAR DENSITY RIGHT BREAST. ADDITIONAL VIEWS RECOMMENDED FOR FURTHER EVALUATION, AND POSSIBLE SONOGRAM. BI-RADS 0. Needs additional imaging. Electronically signed by: Jose J Serna M.D Narrative 01/11/2019 11:26 AM [employer] SCREENING MAMMOGRAM BILATERAL W JUAN C HISTORY: Encounter for screening mammogram for malignant neoplasm of breast. TECHNIQUE: 2 views of each breast were obtained with bilateral breast tomosynthesis. COMPARISON: 01/07/2018. FINDINGS: Scattered parenchymal densities bilaterally. A nodular focus is seen at the anterior aspect of the upper right breast near the retroareolar region. This measures 9 mm. Cone compression view and lateral medial view recommended for further evaluation, and possible sonogram. Scattered benign calcic patient are noted. Digital technology was employed plus computer aided detection software (R2) was utilized in interpretation of these images. This facility utilizes a reminder system to notify patient's of yearly mammograms. Self Screening Mammogram IMG MAMMO PROCEDURES Fi nal Result * HEPATITIS C SCREENING (03/27/2016) HEP C Unknown Historical Provider HEALTH MAINTENANCE Final Result from Last 3 Months or Most Recently Relevant to Health Maintenance Insurance [facility] MEDICARE ADVANTAGE MEDICARE ADVANTAGE MEDICARE ADVANTAGE Advance Directives For more information, please contact: [phone] * Full Code (Latest Code Status on [...] 8:33 AM 12/18/2017 8:33 AM Care Teams Funeral Sales Manager Relationship Specialty Start Date End Date Yaneli Summers MD [address] [address] PCP - General Family Medicine 06/04/21 Alvaro Horton MD PhD [address] [place] [address] Radiation Oncologist Radiation Oncology 05/01/23 Charles Pa MD [address] [address] Consulting Physician Pulmonary Disease 05/01/23
--- OUTSIDE RECORDS SUMMARY | 2024-08-02 09:14 | XMS_ITS ---
Author Organization [facility] Address [address] [place] [address] Care Team Providers Care Certified Hyperbaric Technologist Name Role Phone Yaneli Summers MD Primary Care Provide r Alvaro Horton MD PhD Unavailable Charles Pa MD Unavailable Active Problems Problem [...] 03/04/2023 Assessment & Plan (03/04/2023 9:41 AM MANAGER SIX SIGMA): We have discussed the findings on the [...] ultrasound Assessment & Plan (03/04/2023 9:42 AM MANAGER SIX SIGMA): The splenic lesion seen on ultrasound was not visualized on the MRI. However there was 2 lesions identified within the kidney, 1 favored to be a cystic lesion while the other 1 favor to be a renal carcinoma. I will send her to urology for further management. She is in understanding. LUQ abdominal pain 12/30/2022 Assessment & Plan (01/30/2023 12:02 PM MANAGER SIX SIGMA): We have discussed that splenic cyst can [...] discussions. Assessment & Plan (12/30/2022 9:55 AM MANAGER SIX SIGMA): New concern Chronic Not at goal Possible [...] up to date Pap smear: follows with dispatcher service Mammo: Managed by specialist Lung cancer screening: follows with pulmonary F/u in 1 year for annual Assessment & Plan (06/25/2023 12:49 PM CDT): Labs reviewed Colonoscopy up to date Pap smear: follows with dispatcher service Mammo: has an appointment set up, [facility] Lung cancer screening: due in July, follows with pulmonary F/u in 1 year for annual Assessment & Plan (06/25/2022 8:33 AM CDT): Labs reviewed wnl Colonoscopy due in 2022, order placed for november Pap smear: follows with dispatcher service Mammo: has an appointment set up, [facility] Lung cancer screening: due in July, follows with pulmonary F/u in 1 year for annual Assessment & Plan (06/04/2021 11:45 AM CDT): Labs reviewed wnl Colonoscopy due in 2022 Pap smear: follows with dispatcher service Mammo: has an appointment set up F/u [...] (11/10/2017): Added automatically from request for surgery [id number] Hx of colonic polyps 11/10/2017 Overview (11/10/2017): Added automatically from request for surgery [id number] Non-rheumatic tricuspid valve insufficiency 03/28 Chronic obstructive [...] months Assessment & Plan (12/30/2022 9:26 AM MANAGER SIX SIGMA): Bp in the office today BP Readings [...] Assessment & Plan (06/30/2024 9:11 AM CDT): Current Treatment and Therapy Plans No current plan information found. Past Treatment and Therapy Plans No past plan information found. Lifetime Dose Tracking * Chemical Lifetime Dose [...] (09/09/2019): Added automatically from request for surgery [id number] Nonrheumatic aortic valve insufficiency 09/01/2019 11/23/2019 Bronchitis 12/01/2017 03/17/2018 Family hx of colon cancer 11/10/2017 Overview (11/10/2017): Added automatically from request for surgery [id number] Dysphagia 11/10/2017 11/09/2018 Overview (11/10/2017): Added automatically from request for surgery [id number] Nonrheumatic aortic valve insufficiency 04/22/2017 11/23/2019 Hypertension [...] CARTILAGE DIS NOS Benign hypertension 07/10/2013 10/10/19 Overview (05/31/2016): BENIGN HYPERTENSION
--- OUTSIDE RECORDS SUMMARY | 2024-08-02 09:14 | XMS_ITS | Clinical Summary ---
Author Organization [facility] Address [address] [place] [address] Care Team Providers Care Track And Field Coach Name Role Phone Yaneli Summers MD Primary Care Provide r Alvaro Horton MD PhD Unavailable [phone] Charles Pa MD Unavailable Allergies Active Allergy [...] Additional Information Patient not taking.Reported on 07/21/2024 Trelecharlotte Ellipta 100-62.5-25 mcg inhalerIndicatio ns:Chronic obstructive pulmonary disease, unspecified COPD type (HCC) USE 1 INHALATION BY MOUTH DAILY 180 [...] total) by mouth daily 90 tablet 3 07/22/19 25 026 Active metoprolol XL (TOPROL-XL) 100 mg 24 hr tablet Take 1 tablet (100 mg total) by mouth daily 90 tablet 03/09/19 025 Discontin ued(Reord er) diltiazem LA (CARDIZEM LA) 180 mg 24 hr tablet Take 1 tablet (180 mg total) by mouth daily 30 tablet 04/19/19 25 025 Discontin ued(Reord er) apixaban (ELIQUIS) 5 mg tabletIndication s:atrial fibrillation Take 1 tablet (5 mg total) by mouth 2 (two) times a day 60 tablet 06/22/19 25 025 Discontin ued(Reord er) Active [...] 03/04/2023 Assessment & Plan (03/04/2023 9:41 AM PROFESSOR OF PRACTICE): We have discussed the findings on the [...] ultrasound Assessment & Plan (03/04/2023 9:42 AM PROFESSOR OF PRACTICE): The splenic lesion seen on ultrasound was not visualized on the MRI. However there was 2 lesions identified within the kidney, 1 favored to be a cystic lesion while the other 1 favor to be a renal carcinoma. I will send her to urology for further management. She is in understanding. LUQ abdominal pain 12/30/2022 Assessment & Plan (01/30/2023 12:02 PM PROFESSOR OF PRACTICE): We have discussed that splenic cyst can [...] discussions. Assessment & Plan (12/30/2022 9:55 AM PROFESSOR OF PRACTICE): New concern Chronic Not at goal Possible [...] up to date Pap smear: follows with extruder operator vertical Mammo: Managed by specialist Lung cancer screening: follows with pulmonary F/u in 1 year for annual Assessment & Plan (06/25/2023 12:49 PM CDT): Labs reviewed Colonoscopy up to date Pap smear: follows with extruder operator vertical Mammo: has an appointment set up, Goes to [facility] Lung cancer screening: due in July, follows with pulmonary F/u in 1 year for annual Assessment & Plan (06/25/2022 8:33 AM CDT): Labs reviewed wnl Colonoscopy due in 2022, order placed for november Pap smear: follows with extruder operator vertical Mammo: has an appointment set up, Goes to [facility] Lung cancer screening: due in July, follows with pulmonary F/u in 1 year for annual Assessment & Plan (06/04/2021 11:45 AM CDT): Labs reviewed wnl Colonoscopy due in 2022 Pap smear: follows with extruder operator vertical Mammo: has an appointment set up F/u [...] (11/10/2017): Added automatically from request for surgery [id number] Hx of colonic polyps 11/10/2017 Overview (11/10/2017): Added automatically from request for surgery [id number] Non-rheumatic tricuspid valve insufficiency 03/28 Chronic obstructive [...] months Assessment & Plan (12/30/2022 9:26 AM PROFESSOR OF PRACTICE): Bp in the office today BP Readings [...] (09/09/2019): Added automatically from request for surgery [id number] Nonrheumatic aortic valve insufficiency 09/01/2019 11/23/2019 Bronchitis 12/01/2017 03/17/2018 Family hx of colon cancer 11/10/2017 Overview (11/10/2017): Added automatically from request for surgery [id number] Dysphagia 11/10/2017 11/09/2018 Overview (11/10/2017): Added automatically from request for surgery [id number] Nonrheumatic aortic valve insufficiency 04/22/2017 11/23/2019 Hypertension [...] Description 07/21/2024 9:15 AM CDT Office Visit [employer] [facility] at [address] [place] [address] Fe Youssef NP Essential hypertension (Primary Dx); Mild mitral and aortic regurgitation 06/30/2024 8:15 AM CDT Office Visit [facility] at [address] [place] [address] Yaneli Lopez MD Encounter for [...] (HCC); Lung nodule; Hematuria, unspecified type 06/22/2024 6:35 AM CDT Lab [address] [address] Healthcare maintenance 06/22/2024 Results Follow-Up [facility] at [address] [place] [address] Yaneli Lopez MD CBC with auto differential, Comprehensive metabolic panel, Lipid panel, Additional followed-up results: 4 06/04/2024 Telephone [facility] [address] [place] [address] [address] [place] [address] Nisa Roach MA 06/03/2024 9:30 AM CDT Office Visit [facility] Neu[facility] [address] [place] [address] Saurav Morrison MD RIVER (obstructive sleep apnea) (Primary Dx); Hypersomnia with sleep apnea; Obesity (BMI 30.0-34.9) 06/03/2024 Telephone [employer] [facility] at [address] [place] [address] Rosa Casiano MA 05/13/2024 Telephone [facility] at [address] [place] [address] Yaneli Lopez MD Additional Services Or Orders from Last 3 Months Immunizations Immunization Administration Dates Next Due COVID-19 mRNA ([employer]) 0.3 m L (30 mcg) vaccine (12 [...] on file Legal Sex Female 6:17 PM PROFESSOR OF PRACTICE Gender Identity Not on file Sexual Orientation [...] 07/21/2024 9:42 AM CDT Plan of Treatment Health Maintenance Due Date Last Done Comments Hepatitis B Screening 1963 Osteoporosis Screening-Bone Density Scan 06/08/2022 06/08/2020, 05/01/2016, 05/01/2016 Lung Cancer Screening 01/08/2025 01/08/2024 , 07/09/2023, 09/02/2022, Additional history exists Covid-19 Vaccine (8 - Pfizer risk season) 2025 12/21/2023, 01/05/2023, 12/16/2021, Additional history exists Postponed from 06/20/2024 (Patient declined, but will receive in the future) Depression Screening 06/30/2025 06/30/2024, 11/05/2023, 08/22/2023, Additional history exists Fall Risk Assessment 06/30/2025 06/30/2024, 11/05/2023, 08/22/2023, Additional history exists Well Visit 65+ 06/30/2025 06/30/2024, 03/2023, 06/25/2022, Additional history exists Zoster Vaccine (1 of 2) 06/30/2025 05/10/2015 Post poned from 07/05/2015 (Patient declined, but will receive in the future) DTaP/Tdap/Td Vaccine (3 - Td or Tdap) [...] Additional history exists Colon Cancer Screening-FOBT Discontinued 12/26/2022, 12/18/2017, 05/01/2016, Additional history exists [...] Read Routine (OP Routine) 01/08/2024 9:08 AM PROFESSOR OF PRACTICE Pulmonary nodule COLONOSCOPY 12/26/2022 7:34 AM CDT DEXA AXIAL SKELETON BONE DENSITY 1 OR MORE SITES Schedule Routine, Read Routine (OP Routine) 06/08/2020 9:51 AM CDT Other specified disorders of bone density and structure, multiple sites SCREENING MAMMOGRAM BILATERAL W JUAN C Schedule Routine, Read Routine (OP Routine) 01/11/2019 10:22 AM PROFESSOR OF PRACTICE Encounter for screening mammogram for malignant neoplasm of breast HM HEPATITIS C SCREENING Routine 03/27/2016 from Last 3 Months or Most Recently Relevant to Health Maintenance Results * POCT urinalysis dipstick (06/30/2024 9:08 AM CDT) Color, Urine, POC Light Yellow Clarity, ur, POC Clear Clear Glucose, ur, POC Negative Negative Bilirubin, ur, POC Negative Negative Ketones, ur, POC Negative Negative Specific [place], POC 1.010 1.003 - 1.030 Blood, ur, POC Negative Negative pH, ur, POC 7.0 5.0 - 8.0 Protein, ur, POC Negative Negative Urobilinogen, urine, POC 0.2 0.2 - 1.0 mg/dL Nitrite, ur, POC Negative Negative Leukocytes, ur, POC Negative Negative Lot Number [id number] Urine 06/30/2024 9:08 AM CDT us Yaneli Summers MD POINT OF CARE TEST [...] Inclusion of Race in Diagnosing Kidney Disease, JASN 2020). The CKD-EPI equation should not be used for patients with unstable renal function and has not been validated in children and those over 70. Current interpretive data was last reviewed 2020. Blood 06/22/2024 6:41 AM CDT 06/22/2024 6:51 AM CDT us Yaneli Summers MD LAB BLOOD ORDERABLES Final Result [facility] ([place]) 1 [facility] Department [place] [address] * (ABNORMAL) Differential, auto (06/22/2024 6:41 AM [...] Neutrophil pct 65.1 % [facility] ([place]) Comment: Interpretive Data Percent cell count reference [...] BLOOD ORDERABLES Final Result Performing Organization Address City/[facility] Co de Phone Number [facility] TH[facility] ([place]) [address] [place] [address] * Thyroid Function Gary (06/22/2024 6:41 AM CDT) [facility] TSH 3.81 0.30 - 4.20 mcIUnit/mL Blood 06/22/2024 6:41 AM CDT 06/22/2024 6:51 AM CDT Narrative [facility] - 06/22/2024 7:25 AM CDT Fasting Yaneli Summers MD LAB BLOOD ORDERABLES Final Result Performing Organization Address [facility] de Phone Number [facility] ([place]) [address] [place] [address] * (ABNORMAL) CBC with auto differential (06/22/2024 6:41 AM CDT) Pathologist [facility] WBC 11.62(H) 3.80 - 9.90 K/cumm Hgb 12.1 11.9 - 15.5 g/dL [facility] ([place] Hct 39.1 35.6 - 45.5 % [facility] ([place]) Plt 356 150 - 400 K/cumm [facility] ([place] MPV 9.4 9.1 - 12.3 fL [facility] ([place]) RBC 4.27 3.90 - 5.20 M/cumm [facility] ([place]) MCV 91.6 81.3 - 96.4 fL [facility] ([place]) MCH 28.3 27.1 - 33.3 pg [facility] ([place]) MCHC 30.9(L) 32.3 - 35.7 g/dL [facility] ([place]) RDW CV 13.8 11.1 - 14.9 % [facility] ([place]) RDW SD 46.6 35.7 - 48.1 fL [facility] ([place]) NRBC abs 0.00 0.00 - 0.01 K/cumm [facility] ([place]) Blood 06/22/2024 6:41 AM CDT 06/22/2024 6:51 AM CDT Narrative [facility] ([place]) - 06/22/2024 6:56 AM CDT Fasting Yaneli Summers MD LAB BLOOD ORDERABLES Final Result Performing Organization Address [facility] de Phone Number [facility] ([place]) 1 [facility] [place] [address] * Hemoglobin A1c (06/22/2024 6:41 AM CDT) Hgb A1C 5.4 4.0 - 5.6 % Estimated Average Glucose 108 mg/dL [facility] ([place]) Comment: The ADA recommends reporting an estimated Average Glucose (eAG) with all Hemoglobin A1c results using the equation derived from a study of 507 normal and diabetic adults. Minority populations were underrepresented and children were not included. (Diabetes Care 31:3671-7751, 2008). The eAG is not equivalent to a fasting glucose. Blood 06/22/2024 6:41 AM CDT 06/22/2024 6:51 AM CDT Narrative [facility] ([place]) - 06/22/2024 7:10 AM CDT Fasting Yaneli Summers MD LAB BLOOD ORDERABLES Final Result Performing Organization Address [facility] Co de Phone Number [facility] ([place]) 1 [facility] [place] [address] * Lipid panel (06/22/2024 6:41 AM CDT) [...] on 2017. HDL 58 >=40 mg/dL [facility] ([place]) Comment: Interpretive Data Ages < or [...] NCEP Expert Panel. Circulation 2004;110:227 3. Matt Melvin et al. ELVIS Cardiol. 2020 June 24;5(5):540-548. doi: 10.1001/jamacardio.2020.0013 Current Interpretive Data was last revised on 2023. Non-HDL Cholesterol 92 mg/dL [place] [place]) Comment: Interpretive Data Ages [...] revised on 2017. Chol/HDL ratio 3 [facility] [place]) Blood 06/22/2024 6:41 AM CDT 06/22/2024 6:51 AM CDT Narrative [facility] ([place]) - 06/22/2024 7:17 AM CDT Fasting us Yaneli Summers MD LAB BLOOD ORDERABLES Final Result [facility] [place]) 1 [facility] [place] [address] * Comprehensive metabolic panel (06/22/2024 6:41 AM [...] classification and Diagnosis of Diabetes Diabetes Care 2021; 46: S19-S40. Current interpretive data was last [...] ([place]) AST 15 10 - 45 Units/L [facility] ([place]) Blood 06/22/2024 6:41 AM CDT 06/22/2024 6:51 AM CDT Narrative [facility] ([place]) - 06/22/2024 7:17 AM CDT Fasting us Yaneli Summers MD LAB BLOOD ORDERABLES Final Result [facility] 1 [facility] [place] [address] * CT Chest WO Contrast F/U Lung Screen Protocol (01/08/2024 9:08 AM PROFESSOR OF PRACTICE) Anatomical Region Laterality Modality Chest N/A Computed Tomogra phy 01/13/2024 9:19 AM PROFESSOR OF PRACTICE Narrative 01/13/2024 9:36 AM PROFESSOR OF PRACTICE EXAM DESCRIPTION: CT CHEST WO CONTRAST F/U [...] 9:36 AM - Electronically signed by Xiang Melvin.D. AG: JESÚS Report ID: [id number] Reading Location: [id number] Procedure Note Xiang Carrizales MD - 01/13/2024 [...] Xiang Carrizales M.D. AG: JESÚS Report ID: [id number] Reading Location: [id number] Charles Pa MD IMG CT PROCEDURES Final Result * COLONOSCOPY (12/26/2022 7:34 AM CDT) Anatomical Region Laterality Modality Other Narrative Procedure Note Yogesh East MD - 12/26/2022 7:34 AM CDT [facility] Patient Name: Blanca Delgado Procedure Date: 12/26/2022 7:34 AM Date of : 1945 Admit Type: Outpatient Age: 77 Gender: Female Attending MD: Yogesh East M.D. Room: [facility] ENDOSCOPY ROOM 1 Note [...] scope was passed under direct vision. TheColonoscope [id number] was introduced through the anus and advanced [...] 7:34 AM Procedure Code(s): --- Professional --- 56107, Colonoscopy, flexible; with biopsy, single or multiple --- Technical --- 36217, Colonoscopy, flexible; with biopsy, single or multiple Diagnosis Code(s): --- Professional --- Z80.0, Family history of malignant neoplasm of digestive organs D12.2, Benign neoplasm of ascending colon K64.9, Unspecified hemorrhoids --- Technical --- Z80.0, Family history of malignant neoplasm of digestive organs D12.2, Benign neoplasm of ascending colon K64.9, Unspecified hemorrhoids CPT copyright 2020 [employer]. All rights reserved. The codes documented in this report are preliminary and upon rope making machine operator reviewmay be revised to meet current compliance requirements. Recognized by the [employer] for promoting quality [...] receiving long-term steroid therapy. Electronically signed by: MD Brea Riley 06/08/2020 9:55 AM CDT COMPLETION DATE: 06/08/2020 10:00 AM ORDERING HEALTHCARE PROVIDER: JUANA PATEL STUDY DESCRIPTION: DEXA AXIAL SKELETON BONE DENSITY 1 OR MORE SITES CLINICAL INDICATIONS: Postmenopausal female here for osteoporosis screening. COMPARISON: None TECHNIQUE: Dual x-ray absorptiometry (DEXA) was performed using E[employer]ome system. GENERAL GUIDELINES: According to WHO guidelines, [...] Dual x-ray absorptiometry (DEXA) was performed using E[employer]ome system. GENERAL GUIDELINES: According to WHO guidelines, [...] by: Keyla Jacobson MD Juana Patel MD [facility] [place] PROCEDURES Final Resul t * (ABNORMAL) Screening Mammogram Bilateral W Juan C (01/11/2019 10:22 AM PROFESSOR OF PRACTICE) Anatomical Region Laterality Modality Breast Bilateral Mammography 01/11/2019 10:5 1 AM PROFESSOR OF PRACTICE Impressions 01/11/2019 11:26 AM PROFESSOR OF PRACTICE 1. 9 MM NODULAR DENSITY RIGHT BREAST. ADDITIONAL VIEWS RECOMMENDED FOR FURTHER EVALUATION, AND POSSIBLE SONOGRAM. BI-RADS 0. Needs additional imaging. Electronically signed by: Jose J Serna M.D Narrative 01/11/2019 11:26 AM PROFESSOR OF PRACTICE SCREENING MAMMOGRAM BILATERAL W JUAN C HISTORY: [...] Most Recently Relevant to Health Maintenance Insurance [facility] AD[facility] Advance Directives For more information, please contact: [phone] * Full Code (Latest Code Status on [...] 8:33 AM 12/18/2017 8:33 AM Care Teams Track And Field Coach Relationship Specialty Start Date End Date Yaneli Summers MD [address] [place] [address] DR CERRATO [address] [place] [id number] PCP - General Family Medicine 06/04/21 Alvaro Horton MD PhD 6 [facility] [place] [address] Radiation Oncologist Radiation Oncology 05/01/23 Charles Pa MD [address] [address] Consulting Physician Pulmonary Disease 05/01/23
[2024-08-02 09:59] LABS: Alanine Aminotransferase 17 U/L (6-35); Albumin Level 4.2 g/dL (3.5-5.1); Alkaline Phosphatase 66 U/L (38-126); Anion Gap 9 mmol/L (4-12); Aspartate Amino Transferase 37 U/L (14-36); Bilirubin,Total 0.5 mg/dL (0.2-1.3); Blood Urea Nitrogen 17 mg/dL (7-17); Calcium 9.2 mg/dL (8.4-10.2); Carbon Dioxide 29 mmol/L (22-30); Chloride 103 mmol/L (98-107); Estimated Glomerular Filt Rate > 60; Glucose 120 mg/dL (65-110); Potassium 4.3 mmol/L (3.4-5.0); Sodium 141 mmol/L (137-145); Total Protein 7.8 g/dL (6.3-8.2)
[2024-08-04 03:13] LABS: CA 15-3 6 U/mL (<32)
== END 2024-08-02 08:48 | disposition home or self-care (01) ==
LOC: ANHLAB 08:49
PROVIDERS: PCP Family Medicine; Visit Provider Internal Medicine Hematology & Oncology
DX: C50.312 Malignant neoplasm of lower-inner quadrant of left female breast (principal); Z17.0 Estrogen receptor positive status [ER+]
CPT/HCPCS: 36415; 80053; 85025; 86300

== ENCOUNTER 2024-12-02 09:24 | Outpatient (CLI) | payer MEDICARE, SELFPAY ==
[2024-12-02 09:38] LABS: Hematocrit 41.3 % (37.0-47.0); Hemoglobin 12.9 g/dL (12.0-15.0); Immature Granulocyte Percent A 0.5 % (0-0.5); Lymphocytes Absolute Auto 2.50 K/mm3 (0.9-3.2); Mean Corpuscular HGB Conc 31.2 g/dl (32-36); Mean Corpuscular Hemoglobin 28.0 pg (26-34); Mean Corpuscular Volume 89.8 fl (80-100); Nucleated Red Blood Cells Absolute Auto 0.000 K/mm3 (0.0-0.012); Nucleated Red Blood Cells Perc 0.0 % (0.0-0.2); Platelet Count Result 313 k/mm3 (150-375); Red Blood Count 4.60 M/mm3 (4.2-5.4); White Blood Count 9.9 K/mm3 (4.5-10.0)
[2024-12-02 13:33] LABS: Alanine Aminotransferase 18 U/L (6-35); Albumin Level 4.3 g/dL (3.5-5.1); Alkaline Phosphatase 72 U/L (38-126); Anion Gap 7 mmol/L (4-12); Aspartate Amino Transferase 31 U/L (14-36); Bilirubin,Total 0.4 mg/dL (0.2-1.3); Blood Urea Nitrogen 21 mg/dL (7-17); Calcium 9.5 mg/dL (8.4-10.2); Carbon Dioxide 31 mmol/L (22-30); Chloride 101 mmol/L (98-107); Estimated Glomerular Filt Rate 56; Glucose 96 mg/dL (65-110); Potassium 4.6 mmol/L (3.4-5.0); Sodium 139 mmol/L (137-145); Total Protein 7.9 g/dL (6.3-8.2)
== END 2024-12-02 09:25 | disposition home or self-care (01) ==
PROVIDERS: PCP Family Medicine; Visit Provider Internal Medicine Hematology & Oncology
DX: C50.312 Malignant neoplasm of lower-inner quadrant of left female breast (principal); Z17.0 Estrogen receptor positive status [ER+]
CPT/HCPCS: 36415; 80053; 85025; 86300